=== PATIENT | male | born 1965 | race Hispanic/Latino ===

== ENCOUNTER 2020-05-24 16:54 | Inpatient (IN) | payer SELFPAY ==
[2020-05-24] MEDS ORDERED: SODIUM CHLORIDE 0.9% 1000 ML 1,000 ML IV ONE (17:35)
--- NOTE | 2020-05-24 17:37 | Emergency Department Report ---
HPI - General PUI?: Yes Time Seen by Provider: 05/24/20 17:21 - HPI HPI: Room 8 The patient is a 54-year-old male present with a chief complaint of shortness of breath. Patient states he came to the emergency department because of "Covid." The patient states for the past 2 weeks he has had shortness of breath weakness and lethargy. Patient admits to fever 100.4 F and a cough occasionally productive of sputum. Patient states he feels dehydrated. The patient states he's never had a Covid test ED Past Medical Hx - Past Medical History Previous Medical History?: No - Surgical History Additional Surgical History: Fractured mandible repair - Family History Family history: no significant - Social History Smoking Status: Never Smoker Substance Use Type: None ED Review of Systems ROS: Stated complaint: SOB/SAHLYN/POSS COVID Other details as noted in HPI Constitutional: fever, malaise Eyes: denies: eye pain ENT: denies: throat pain Respiratory: cough, shortness of breath Endocrine: no symptoms reported Gastrointestinal: denies: abdominal pain Genitourinary: denies: dysuria Musculoskeletal: denies: back pain Neurological: denies: headache Physical Exam - Physical Exam Physical Exam: GENERAL: The patient is well-developed well-nourished male lying on stretcher not appearing to be in acute distress HEENT: Normocephalic. Atraumatic. Extraocular motions are intact. Patient has moist mucous membranes. NECK: Supple. Trachea midline CHEST/LUNGS: Occasional rhonchi and crackles left base. There is no respiratory distress noted. HEART/CARDIOVASCULAR: Regular. There is no tachycardia. There is no gallop rub or murmur. ABDOMEN: Abdomen is soft, nontender. Patient has normal bowel sounds. There is no abdominal distention. SKIN: There is no rash. There is no diaphoresis. NEURO: The patient is awake, alert, and oriented. The patient is cooperative. The patient has normal speech MUSCULOSKELETAL: There is no evidence of acute injury. ED Medical Decision Making - Lab Data Result diagrams: 05/24/20 17:46 05/24/20 17:46 Laboratory Tests 05/24/20 05/24/20 12 17:46 17:46 17:46 WBC 8.7 RBC 6.03 H Hgb 18.9 H Hct 54.1 H MCV 90 MCH 31 MCHC 35 H RDW 13.2 Plt Count 154 Lymph % (Auto) 8.6 L Rogers % (Auto) 15.9 H Eos % (Auto) 0.2 Baso % (Auto) 0.4 Lymph # (Auto) 0.7 L [place] # (Auto) 1.4 H Eos # (Auto) 0.0 Baso # (Auto) 0.0 Add Manual Diff Complete Seg Neutrophils % 74.9 H Seg Neutrophils # 6.5 D-Dimer 569.00 H Sodium 131 L Potassium 4.1 Chloride 93.2 L Carbon Dioxide 23 Anion Gap 19 BUN 16 Creatinine 0.6 L Estimated GFR > 60 BUN/Creatinine Ratio 27 Glucose 273 H Calcium 8.8 Ferritin Total Bilirubin 1.40 H AST 101 H ALT 78 H Alkaline Phosphatase 82 Lactate Dehydrogenase 505 H Troponin T < 0.010 C-Reactive Protein 3.50 H NT-Pro-B Natriuret Pep Total Protein 7.8 Albumin 3.1 L Albumin/Globulin Ratio 0.7 05/24/20 05/24/20 05/24/20 17:46 17:46 18:14 WBC RBC Hgb Hct MCV MCH MCHC RDW Plt Count Lymph % (Auto) [place] % (Auto) Eos % (Auto) Baso % (Auto) Lymph # (Auto) [place] # (Auto) Eos # (Auto) Baso # (Auto) Add Manual Diff Seg Neutrophils % Seg Neutrophils # D-Dimer Sodium Potassium Chloride Carbon Dioxide Anion Gap BUN Creatinine Estimated GFR BUN/Creatinine Ratio Glucose 268 H Calcium Ferritin 3592.0 H Total Bilirubin AST ALT Alkaline Phosphatase Lactate Dehydrogenase 476 H Troponin T C-Reactive Protein 3.40 H NT-Pro-B Natriuret Pep 53.57 Total Protein Albumin Albumin/Globulin Ratio - Radiology Data Radiology results: report reviewed (Chest x-ray), image reviewed (Chest x-ray) interpreted by me: Chest a-ofa-ovexci bilateral infiltrates. No pneumothorax. No foreign body seen Chest x-ray (read by radiologist)-patchy parenchymal opacities in both mid to lower lung zones are nonspecific. Atypical causes of pneumonia, including viral pneumonia should be considered. - Differential Diagnosis Pneumonia, COVID-19, pulmonary edema, heart failure Critical care attestation.: If time is entered above; I have spent that time in minutes in the direct care of this critically ill patient, excluding procedure time. ED Disposition Clinical Impression: Bilateral pneumonia, Hypoxia, Suspected COVID-19 virus infection Disposition: DC-09 OP ADMIT IP TO THIS HOSP Is pt being admited?: Yes Does the pt Need Aspirin: Yes Condition: Fair Instructions: Bacterial Pneumonia (ED) Time of Disposition: 21:16 (Hospitalist paged)
[2020-05-24 18:10] LABS: Hematocrit 54.1 % (35.5-45.6); Hemoglobin 18.9 gm/dl (11.8-15.2); Lymphocytes % (Auto) 8.6 % (13.4-35.0); Mean Corpuscular HGB Conc 35 % (32-34); Mean Corpuscular Volume 90 fl (84-94); Platelet Count 154 K/mm3 (140-440); Red Blood Count 6.03 M/mm3 (3.65-5.03); Red Cell Distribution Width 13.2 % (13.2-15.2)
[2020-05-24 18:11] LABS: Basophils % (Auto) 0.4 % (0.0-1.8); Eosinophils % (Auto) 0.2 % (0.0-4.3); Lymphocytes # (Auto) 0.7 K/mm3 (1.2-5.4); Monocytes # (Auto) 1.4 K/mm3 (0.0-0.8); Monocytes % (Auto) 15.9 % (0.0-7.3)
--- NOTE | 2020-05-24 18:23 | XRay Report ---
CHEST 1 VIEW 6:05 PM INDICATION / CLINICAL INFORMATION: Shortness of breath and cough. COMPARISON: None available. FINDINGS: SUPPORT DEVICES: None. HEART / MEDIASTINUM: The heart size and pulmonary vasculature are normal. LUNGS / PLEURA: There are [id number] patchy parenchymal opacities in both mid to lower lung zon es. No significant pleural effusion. No pneumothorax. ADDITIONAL FINDINGS: No significant additional findings. IMPRESSION: Patchy parenchymal opacities in both mid to lower lung zones are nonspecific. Atypical ca uses of pneumonia, including viral pneumonia, should be considered. Signer Name: Alejandro Edwards MD Signed: 05/24/2020 6:19 PM Workstation Name: [id number]
[2020-05-24 18:26] LABS: C-Reactive Protein 3.4 mg/dL (0.00-1.30)
[2020-05-24] MEDS ORDERED: cefTRIAXone/NS 1 GM/50 ML 1 GM/50 ML BAG IV ONE ×2 (18:38→22:00)
[2020-05-24] MEDS ORDERED: dexAMETHasone 20 MG/5 ML VIAL IV ONE ×2 (18:38→22:30)
[2020-05-24] MEDS ORDERED: AZITHROMYCIN 500 MG in SODIUM CHLORIDE 0.9% 250ML 250 ML IV ONE (18:38)
[2020-05-24 20:19] LABS: Alanine Aminotransferase 78 units/L (7-56); Albumin 3.1 g/dL (3.9-5); Blood Urea Nitrogen 16 mg/dL (9-20); Calcium 8.8 mg/dL (8.4-10.2); Hemolysis Index 14
[2020-05-24 20:23] LABS: BUN/Creatinine Ratio 27
[2020-05-24] MEDS ORDERED: MINERAL OIL/PETROLATUM, WHITE OPHTH OINT 3.5 GM OU PRN (20:35)
[2020-05-24] MEDS ORDERED: MIDAZOLAM 2 MG/2 ML INJ IV PRN (20:35)
[2020-05-24] MEDS ORDERED: LIP THERAPY VASELINE TP PRN (20:35)
[2020-05-24] MEDS ORDERED: MIDAZOLAM 100 MG in SODIUM CHLORIDE 0.9% 80 ML IV SCH (21:00)
[2020-05-24] MEDS ORDERED: ONDANSETRON 4 MG/2 ML INJ IV PRN (21:35)
[2020-05-24] MEDS ORDERED: MAGNESIUM HYDROXIDE (MOM) ORAL LIQD UDC PO PRN (21:35)
[2020-05-24] MEDS ORDERED: ALBUTEROL 2.5 MG/3 ML NEBU IH PRN (21:35)
[2020-05-24] MEDS ORDERED: ALUM-MAG HYDROXIDE-SIMETHICONE 200-200-20MG/5ML ORAL LIQD 30 ML PO PRN (21:35)
[2020-05-24] MEDS ORDERED: ALPRAZolam 0.25 MG TAB PO PRN (21:35)
[2020-05-24] MEDS ORDERED: DOCUSATE SODIUM 100 MG CAP PO PRN (21:35)
[2020-05-24] MEDS ORDERED: METOCLOPRAMIDE 10 MG/2 ML INJ IV PRN (21:35)
--- NOTE | 2020-05-24 21:47 | History and Physical Report ---
History of Present Illness Date of examination: 05/24/20 Date of admission: 05/24/20 21:29 Chief complaint: shortness of breath History of present illness: The patient is a 54-year-old male present with a chief complaint of shortness of breath. Patient states he came to the emergency department because of "Covid." The patient states for the past 2 weeks he has had shortness of breath weakness and lethargy. Patient admits to fever 100.4 F and a cough occasionally productive of sputum. Patient states he feels dehydrated. The patient states he's never had a Covid test Ed Work up shows WBC 8.7, hemoglobin 18.9, d-dimer 569, sodium 131, potasium 4.1, Cr .06, serum glucose 268, and ferritin 3592 Chest x-ray-shows bilateral Pneumonia Patient seen at bedside, on oxygen per N/c. He admits alcohol use but quit 2 years ago. Reviewed lab, mar, and v/s Past History Past Medical History: other (denies Past medical hx) Social history: lives with family (Lives with parent), alcohol abuse (quit alcohol use 2 years ago) Family history: diabetes, hypertension Medications and Allergies Allergies Allergy/AdvReac Type Severity Reaction Status Date / Time Penicillins Allergy Unknown Verified 05/24/20 20:57 Active Meds: Active Medications Dexamethasone (Dexamethasone 20 Mg/5 Ml Vial) 10 mg IV ONCE ONE Stop: 05/24/20 22:31 Hydrophilic Ointment (Lip Therapy Vaseline) 1 applic TP Q2HR PRN PRN Reason: Dry Lips Midazolam HCl 100 mg/ Sodium (Chloride) 100 mls @ 2 mls/hr IV TITR JEFF; Protocol Ceftriaxone Sodium (Rocephin/Ns 1 Gm/50 Ml) 1 gm in 50 mls @ 100 mls/hr IV ONCE ONE; Protocol Stop: 05/24/20 22:29 Midazolam HCl (Midazolam 2 Mg/2 Ml Inj) 2 mg IV Q10MIN PRN PRN Reason: Sedation Multi-Ingred Cream/Lotion/Oil/Oint (Mineral Oil/Petrolatum, White Ophth Oint 3.5 Gm) 1 applic OU Q4HR PRN PRN Reason: Dry Eye(s) Review of Systems Constitutional: fatigue, weakness, malaise Ears, nose, mouth and throat: no ear discharge, no epistaxis Cardiovascular: no edema Respiratory: cough, shortness of breath, dyspnea on exertion, respiratory infections Gastrointestinal: no melena Genitourinary Male: no hematuria Rectal: no incontinence Musculoskeletal: muscle weakness Integumentary: no sores, no wounds Neurological: no head injury Psychiatric: anxiety Hematologic/Lymphatic: no easy bruising Exam - Constitutional Vitals: Temp Pulse Resp BP Pulse Ox 98.1 F 88 21 147/76 86 05/24/20 19:38 05/24/20 19:38 05/24/20 19:38 05/24/20 19:38 05/24/20 19:38 General appearance: Present: mild distress - EENT Eyes: Present: PERRL ENT: hearing intact, clear oral mucosa - Neck Neck: Present: supple, normal ROM - Respiratory Respiratory effort: other (shortness of breath) Respiratory: bilateral: CTA - Cardiovascular Heart rate: 88 Heart Sounds: Present: S1 & S2. Absent: rub, click - Extremities Extremities: pulses symmetrical, No edema Peripheral Pulses: within normal limits - Abdominal General gastrointestinal: Present: soft, non-tender, non-distended, normal bowel sounds Male genitourinary: Present: normal - Integumentary Integumentary: Present: clear, warm, dry - Musculoskeletal Musculoskeletal: gait normal, strength equal bilaterally - Psychiatric Psychiatric: appropriate mood/affect, intact judgment & insight - Neurologic Neurologic: CNII-XII intact, moves all extremities HEART Score - HEART Score Troponin: Troponin T < 0.010 ng/mL (0.00-0.029) 05/24/20 17:46 Results - Labs CBC & Chem 7: 05/24/20 17:46 05/25/20 02:55 Labs: Abnormal lab results 05/24/20 05/24/20 05/24/20 Range/Units 17:46 17:46 17:46 RBC 6.03 H (3.65-5.03) M/mm3 Hgb 18.9 H (11.8-15.2) gm/dl Hct 54.1 H (35.5-45.6) % MCHC 35 H (32-34) % Lymph % (Auto) 8.6 L (13.4-35.0) % [place] % (Auto) 15.9 H (0.0-7.3) % Lymph # (Auto) 0.7 L (1.2-5.4) K/mm3 [place] # (Auto) 1.4 H (0.0-0.8) K/mm3 Seg Neutrophils % 74.9 H (40.0-70.0) % D-Dimer 569.00 H (0-234) ng/mlDDU Sodium 131 L (137-145) mmol/L Chloride 93.2 L (98-107) mmol/L Creatinine 0.6 L (0.8-1.3) mg/dL Glucose 273 H (75-100) mg/dL Ferritin (30.0-300.0) ng/mL Total Bilirubin 1.40 H (0.1-1.2) mg/dL AST 101 H (5-40) units/L ALT 78 H (7-56) units/L Lactate Dehydrogenase 505 H (91-180) units/L C-Reactive Protein 3.50 H (0.00-1.30) mg/dL Albumin 3.1 L (3.9-5) g/dL 05/24/20 05/24/20 Range/Units 17:46 17:46 RBC (3.65-5.03) M/mm3 Hgb (11.8-15.2) gm/dl Hct (35.5-45.6) % MCHC (32-34) % Lymph % (Auto) (13.4-35.0) % [place] % (Auto) (0.0-7.3) % Lymph # (Auto) (1.2-5.4) K/mm3 [place] # (Auto) (0.0-0.8) K/mm3 Seg Neutrophils % (40.0-70.0) % D-Dimer (0-234) ng/mlDDU Sodium (137-145) mmol/L Chloride (98-107) mmol/L Creatinine (0.8-1.3) mg/dL Glucose 268 H (75-100) mg/dL Ferritin 3592.0 H (30.0-300.0) ng/mL Total Bilirubin (0.1-1.2) mg/dL AST (5-40) units/L ALT (7-56) units/L Lactate Dehydrogenase 476 H (91-180) units/L C-Reactive Protein 3.40 H (0.00-1.30) mg/dL Albumin (3.9-5) g/dL Assessment and Plan - Patient Problems (1) Bilateral pneumonia Current Visit: Yes Status: Acute Plan to address problem: Most likely 2/2 to covid infection Covid test ordered-will f/u with result Started on empiric antibiotic Blood culture ID consult (2) Suspected COVID-19 virus infection Current Visit: Yes Status: Acute Plan to address problem: Elevated inflammatory makers-trend Airborne and contact isolation-pending covid test result ID consult-Ascorbic acid and zinc sulphate (3) Acute respiratory failure with hypoxia Current Visit: Yes Status: Acute Plan to address problem: Likely 2/2 to covid infection/bacterial PNA PRN bronchodilators and oxygen supplement ABGs Encourage prone position and use of incentive spirometer while awake (4) DVT prophylaxis Current Visit: Yes Status: Acute Plan to address problem: Lovenox (5) Advance care planning Current Visit: Yes Status: Acute Plan to address problem: Full code status
[2020-05-24] MEDS: FAMOTIDINE 20 MG TAB PO SCH (22:37)
[2020-05-24] MEDS: ENOXAPARIN 40 MG/0.4 ML INJ SUB-Q SCH (22:37)
[2020-05-25 04:18] LABS: C-Reactive Protein 3.2 mg/dL (0.00-1.30)
[2020-05-25] MEDS: ASCORBIC ACID 500 MG TAB PO SCH ×3 (05:46→23:45)
[2020-05-25 06:02] LABS: Bacteria,Urine 1+ /HPF (Negative); Bilirubin,Urine NEG (Negative); Blood,Urine NEG (Negative); Color,Urine Amber (Yellow); Mucus,Urine 1+ /HPF
--- NOTE | 2020-05-25 07:11 | XRay Report ---
CHEST 1 VIEW 0618 INDICATION / CLINICAL INFORMATION: follow up respiratory failure COMPARISON: 05/24/2020 FINDINGS: SUPPORT DEVICES: None HEART / MEDIASTINUM: Stable LUNGS / PLEURA: Patchy bilateral pulmonary infiltrates and atelectatic changes, most prominent in the lung bases, continue with slight worsening in the right. No pneumothorax. ADDITIONAL FINDINGS: No significant additional findings. Signer Name: Jean-Pierre Hernandez MD Signed: 05/25/2020 7:07 AM Workstation Name: [email or web address] [id number]
[2020-05-25] MEDS ORDERED: DEXTROSE 50% IN WATER (25GM) 50 ML SYRINGE IV PRN (07:13)
--- NOTE | 2020-05-25 07:29 | Progress Note ---
Assessment and Plan Assessment and plan: The patient is a 54-year-old male present with a chief complaint of shortness of breath. Patient states he came to the emergency department because of "Covid." The patient states for the past 2 weeks he has had shortness of breath weakness and lethargy. Patient admits to fever 100.4 F and a cough occasionally productive of sputum. Patient states he feels dehydrated. The patient states he's never had a Covid test Ed Work up shows WBC 8.7, hemoglobin 18.9, d-dimer 569, sodium 131, potasium 4.1, Cr .06, serum glucose 268, and ferritin 3592 Chest x-ray-shows bilateral Pneumonia Patient seen at bedside, on oxygen per N/c. He admits alcohol use but quit 2 years ago. Reviewed lab, mar, and v/s 05/24: Add insulin for BG control, consult Pulmonary considering Hypoxia. Continue current management and check hgb A1C. (1) Bilateral pneumonia Current Visit: Yes Status: Acute Plan to address problem: Most likely 2/2 to covid infection Covid test ordered-will f/u with result Started on empiric antibiotic Blood culture ID consult (2) Suspected COVID-19 virus infection Current Visit: Yes Status: Acute Plan to address problem: Elevated inflammatory makers-trend Airborne and contact isolation-pending covid test result ID consult-Ascorbic acid and zinc sulphate (3) Acute respiratory failure with hypoxia Current Visit: Yes Status: Acute Plan to address problem: Likely 2/2 to covid infection/bacterial PNA PRN bronchodilators and oxygen supplement ABGs Encourage prone position and use of incentive spirometer while awake (4) Hyperglycemia ?steroid induced vs DM Insulin added Check A1C (5) DVT prophylaxis Current Visit: Yes Status: Acute Plan to address problem: Lovenox (6) Advance care planning Current Visit: Yes Status: Acute Plan to address problem: Full code status History Interval history: Patient seen and examined, short of breath still persist. No new complaints. He states he has been sick for 12 days including today and believes he got it from [facility]. Hospitalist Physical - Physical exam Narrative exam: General appearance: Present: mild distress, on nasal cannula - EENT Eyes: Present: PERRL ENT: hearing intact, clear oral mucosa - Neck Neck: Present: supple, normal ROM - Respiratory Respiratory effort: other (shortness of breath) Respiratory: bilateral: CTA - Cardiovascular Heart rate: 88 Heart Sounds: Present: S1 & S2. Absent: rub, click - Extremities Extremities: pulses symmetrical, No edema Peripheral Pulses: within normal limits - Abdominal General gastrointestinal: Present: soft, non-tender, non-distended, normal bowel sounds Male genitourinary: Present: normal - Integumentary Integumentary: Present: clear, warm, dry - Musculoskeletal Musculoskeletal: gait normal, strength equal bilaterally - Psychiatric Psychiatric: appropriate mood/affect, intact judgment & insight - Neurologic Neurologic: CNII-XII intact, moves all extremities - Constitutional Vitals: Temp Pulse Resp BP Pulse Ox 98.1 F 76 26 H 158/102 92 05/24/20 19:38 05/25/20 07:15 05/25/20 07:15 05/25/20 07:15 05/25/20 07:15 General appearance: Present: mild distress HEART Score - HEART Score Troponin: Troponin T < 0.010 ng/mL (0.00-0.029) 05/24/20 17:46 Results - Labs CBC & Chem 7: 05/24/20 17:46 05/25/20 02:55 Labs: Laboratory Last Values WBC 8.7 K/mm3 (4.5-11.0) 05/24/20 17:46 RBC 6.03 M/mm3 (3.65-5.03) H 05/24/20 17:46 Hgb 18.9 gm/dl (11.8-15.2) H 05/24/20 17:46 Hct 54.1 % (35.5-45.6) H 05/24/20 17:46 MCV 90 fl (84-94) 05/24/20 17:46 MCH 31 pg (28-32) 05/24/20 17:46 MCHC 35 % (32-34) H 05/24/20 17:46 RDW 13.2 % (13.2-15.2) 05/24/20 17:46 Plt Count 154 K/mm3 (140-440) 05/24/20 17:46 Lymph % (Auto) 8.6 % (13.4-35.0) L 05/24/20 17:46 [place] % (Auto) 15.9 % (0.0-7.3) H 05/24/20 17:46 Eos % (Auto) 0.2 % (0.0-4.3) 05/24/20 17:46 Baso % (Auto) 0.4 % (0.0-1.8) 05/24/20 17:46 Lymph # (Auto) 0.7 K/mm3 (1.2-5.4) L 05/24/20 17:46 [place] # (Auto) 1.4 K/mm3 (0.0-0.8) H 05/24/20 17:46 Eos # (Auto) 0.0 K/mm3 (0.0-0.4) 05/24/20 17:46 Baso # (Auto) 0.0 K/mm3 (0.0-0.1) 05/24/20 17:46 Add Manual Diff Complete 05/24/20 17:46 Seg Neutrophils % 74.9 % (40.0-70.0) H 05/24/20 17:46 Seg Neutrophils # 6.5 K/mm3 (1.8-7.7) 05/24/20 17:46 D-Dimer 418.22 ng/mlDDU (0-234) H 05/25/20 02:55 Sodium 131 mmol/L (137-145) L 05/24/20 17:46 Potassium 4.1 mmol/L (3.6-5.0) 05/24/20 17:46 Chloride 93.2 mmol/L (98-107) L 05/24/20 17:46 Carbon Dioxide 23 mmol/L (22-30) 05/24/20 17:46 Anion Gap 19 mmol/L 05/24/20 17:46 BUN 16 mg/dL (9-20) 05/24/20 17:46 Creatinine 0.6 mg/dL (0.8-1.3) L 05/24/20 17:46 Estimated GFR > 60 ml/min 05/24/20 17:46 BUN/Creatinine Ratio 27 % 05/24/20 17:46 Glucose 290 mg/dL (75-100) H 05/25/20 02:55 Lactic Acid 1.50 mmol/L (0.7-2.0) 05/25/20 02:55 Calcium 8.8 mg/dL (8.4-10.2) 05/24/20 17:46 Ferritin 2913.0 ng/mL (30.0-300.0) H 05/25/20 02:55 Total Bilirubin 1.40 mg/dL (0.1-1.2) H 05/24/20 17:46 AST 101 units/L (5-40) H 05/24/20 17:46 ALT 78 units/L (7-56) H 05/24/20 17:46 Alkaline Phosphatase 82 units/L (35-129) 05/24/20 17:46 Lactate Dehydrogenase 396 units/L (91-180) H 05/25/20 02:55 Troponin T < 0.010 ng/mL (0.00-0.029) 05/24/20 17:46 C-Reactive Protein 3.20 mg/dL (0.00-1.30) H 05/25/20 02:55 NT-Pro-B Natriuret Pep 53.57 pg/mL (0-900) 05/24/20 18:14 Total Protein 7.8 g/dL (6.3-8.2) 05/24/20 17:46 Albumin 3.1 g/dL (3.9-5) L 05/24/20 17:46 Albumin/Globulin Ratio 0.7 % 05/24/20 17:46 Urine Color Ana (Yellow) 05/25/20 05:41 Urine Turbidity Clear (Clear) 05/25/20 05:41 Urine pH 6.0 (5.0-7.0) 05/25/20 05:41 Ur Specific [place] 1.032 (1.003-1.030) H 05/25/20 05:41 Urine Protein 100 mg/dl mg/dL (Negative) 05/25/20 05:41 Urine Glucose (UA) >=500 mg/dL (Negative) 05/25/20 05:41 Urine Ketones 20 mg/dL (Negative) 05/25/20 05:41 Urine Blood Neg (Negative) 05/25/20 05:41 Urine Nitrite Neg (Negative) 05/25/20 05:41 Urine Bilirubin Neg (Negative) 05/25/20 05:41 Urine Urobilinogen 4.0 mg/dL (<2.0) 05/25/20 05:41 Ur Leukocyte Esterase Neg (Negative) 05/25/20 05:41 Urine WBC (Auto) 7.0 /HPF (0.0-6.0) H 05/25/20 05:41 Urine RBC (Auto) 1.0 /HPF (0.0-6.0) 05/25/20 05:41 Urine Bacteria (Auto) 1+ /HPF (Negative) 05/25/20 05:41 Urine Mucus 1+ /HPF 05/25/20 05:41 Microbiology: Microbiology 05/24/20 17:46 Peripheral/Venous Blood Culture - Preliminary Culture in Progress 05/24/20 17:46 Peripheral/Venous Blood Culture - Preliminary Culture in Progress Barber/IV: IV Catheter Type [Left Peripheral IV Antecubital] Active Medications - Current Medications Current Medications: Generic Name Dose Route Start Last Admin Trade Name Freq PRN Reason Stop Dose Admin Acetaminophen 650 mg 05/24/20 21:35 Acetaminophen 325 Mg Tab PO Q4H PRN Pain MILD(1-3)/Fever >100.5/LEAL Al Hydrox/Mg Hydrox/Simethicone 30 ml 05/24/20 21:35 Alum-Mag Hydroxide-Simethicone 391-179-37mh/5ml Oral Liqd 30 Ml PO Q4H PRN Indigestion Albuterol 2.5 mg 05/24/20 21:35 Albuterol 2.5 Mg/3 Ml Nebu IH Q4HRT PRN Shortness Of Breath Alprazolam 0.125 mg 05/24/20 21:35 Alprazolam 0.25 Mg Tab PO Q8H PRN Anxiety Ascorbic Acid 500 mg 05/24/20 22:00 05/25/20 05:46 Ascorbic Acid 500 Mg Tab PO Not Given BID JEFF Dexamethasone 6 mg 05/25/20 10:00 Dexamethasone 4 Mg/Ml Vial IV DAILY JEFF Dextrose 50 ml 05/25/20 07:13 Dextrose 50% In Water (25gm) 50 Ml Syringe IV Q30MIN PRN Hypoglycemia Protocol Docusate Sodium 100 mg 05/24/20 21:35 Docusate Sodium 100 Mg Cap PO BID PRN Constipation Enoxaparin Sodium 40 mg 05/24/20 22:00 05/24/20 22:37 Enoxaparin 40 Mg/0.4 Ml Inj SUB-Q 40 mg DAILY JEFF Administration Protocol Famotidine 20 mg 05/24/20 22:00 05/24/20 22:37 Famotidine 20 Mg Tab PO 20 mg BID JEFF Administration Hydrophilic Ointment 1 applic 05/24/20 20:35 Lip Therapy Vaseline TP Q2HR PRN Dry Lips Ceftriaxone Sodium 2 gm in 100 mls @ 200 mls/hr 05/25/20 22:00 Rocephin/Ns 2 Gm/100 Ml IV Q24H [facility] Protocol Azithromycin 500 mg/ Sodium 250 mls @ 250 mls/hr 05/25/20 22:00 Chloride IV Q24H [facility] Protocol Insulin Glargine 12 units 05/25/20 22:00 Insulin Glargine 100 Units/Ml SUB-Q QHS [facility] Insulin Human Lispro 0 unit 05/25/20 07:30 Insulin Lispro 100 Unit/Ml Vial 3 Ml SUB-Q ACHS [facility] Protocol Magnesium Hydroxide 30 ml 05/24/20 21:35 Magnesium Hydroxide (Mom) Oral Liqd Udc PO Q4H PRN Constipation Metoclopramide HCl 10 mg 05/24/20 21:35 Metoclopramide 10 Mg/2 Ml Inj IV Q6H PRN Nausea And Vomiting Multi-Ingred Cream/Lotion/Oil/Oint 1 applic 05/24/20 20:35 Mineral Oil/Petrolatum, White Ophth Oint 3.5 Gm OU Q4HR PRN Dry Eye(s) Ondansetron HCl 4 mg 05/24/20 21:35 Ondansetron 4 Mg/2 Ml Inj IV Q8H PRN Nausea And Vomiting Sodium Chloride 10 ml 05/24/20 22:00 05/24/20 22:38 Sodium Chloride 0.9% 10 Ml Flush Syringe IV 10 ml BID JEFF Administration Sodium Chloride 10 ml 05/24/20 21:35 Sodium Chloride 0.9% 10 Ml Flush Syringe IV PRN PRN LINE FLUSH Zinc Sulfate 220 mg 05/25/20 10:00 Zinc Sulfate 220 Mg Cap PO QDAY [facility] Zolpidem Tartrate 5 mg 05/24/20 21:35 Zolpidem 5 Mg Tab PO QHS PRN Insomnia
[2020-05-25] MEDS ORDERED: dexAMETHasone 4 MG/ML VIAL IV SCH (10:00)
[2020-05-25] MEDS: INSULIN LISPRO 100 UNIT/ML VIAL 3 mL SUB-Q SCH ×4 (10:37→23:46)
[2020-05-25] MEDS: ZINC SULFATE 220 MG CAP PO SCH (11:10)
[2020-05-25] MEDS: FAMOTIDINE 20 MG TAB PO SCH ×2 (11:11→23:45)
[2020-05-25] MEDS: ENOXAPARIN 40 MG/0.4 ML INJ SUB-Q SCH (11:12)
[2020-05-25 12:13] LABS: Basophils % (Auto) 0.2 % (0.0-1.8); Hematocrit 47.8 % (35.5-45.6); Hemoglobin 16.8 gm/dl (11.8-15.2); Lymphocytes # (Auto) 0.5 K/mm3 (1.2-5.4); Lymphocytes % (Auto) 10.9 % (13.4-35.0); Mean Corpuscular HGB Conc 35 % (32-34); Mean Corpuscular Volume 91 fl (84-94); Monocytes # (Auto) 0.6 K/mm3 (0.0-0.8); Monocytes % (Auto) 13.6 % (0.0-7.3); Platelet Count 152 K/mm3 (140-440); Red Blood Count 5.28 M/mm3 (3.65-5.03); Red Cell Distribution Width 13.4 % (13.2-15.2)
[2020-05-25 12:25] LABS: Blood Urea Nitrogen 18 mg/dL (9-20); Calcium 8.6 mg/dL (8.4-10.2); Hemolysis Index 29
[2020-05-25 12:29] LABS: BUN/Creatinine Ratio 36
[2020-05-25] MEDS: cefTRIAXone/NS 2 GM/100 ML 2 GM/100 ML BAG IV SCH (21:37)
[2020-05-25] MEDS: AZITHROMYCIN 500 MG in SODIUM CHLORIDE 0.9% 250ML 250 ML IV SCH (22:09)
--- NOTE | 2020-05-25 22:36 | Consultation ---
History of Present Illness Consult date: 05/25/20 Requesting physician: FADI HAINES Reason for consult: dyspnea History of present illness: The patient is a 54-year-old male present with a chief complaint of shortness of breath. Patient states he came to the emergency department because of "Covid." The patient states for the past 2 weeks he has had shortness of breath, weakness, and lethargy. Patient admits to fever 100.4 F though not for the past several days and a cough occasionally productive of sputum. Denies medical problems. Denies smoking, Denies HIV risk factors. Past History Past Medical History: other (denies Past medical hx) Social history: lives with family (Lives with parent), alcohol abuse (quit alcohol use 2 years ago), full code. denies: prescription drug abuse, IV drug u se Family history: diabetes, hypertension Medications and Allergies Allergies Allergy/AdvReac Type Severity Reaction Status Date / Time Penicillins Allergy Unknown Verified 05/24/20 20:57 Active Meds: Active Medications Acetaminophen (Acetaminophen 325 Mg Tab) 650 mg PO Q4H PRN PRN Reason: Pain MILD(1-3)/Fever >100.5/LEAL Al Hydrox/Mg Hydrox/Simethicone (Alum-Mag Hydroxide-Simethicone [phone]/5ml Oral Liqd 30 Ml) 30 ml PO Q4H PRN PRN Reason: Indigestion Albuterol (Albuterol 2.5 Mg/3 Ml Nebu) 2.5 mg IH Q4HRT PRN PRN Reason: Shortness Of Breath Alprazolam (Alprazolam 0.25 Mg Tab) 0.125 mg PO Q8H PRN PRN Reason: Anxiety Ascorbic Acid (Ascorbic Acid 500 Mg Tab) 500 mg PO BID [facility] Last Admin: 05/25/20 11:12 Dose: 500 mg Documented by: Dexamethasone (Dexamethasone 4 Mg/Ml Vial) 6 mg IV DAILY [facility] Last Admin: 05/25/20 10:36 Dose: 6 mg Documented by: Dextrose (Dextrose 50% In Water (25gm) 50 Ml Syringe) 50 ml IV Q30MIN PRN; Protocol PRN Reason: Hypoglycemia Docusate Sodium (Docusate Sodium 100 Mg Cap) 100 mg PO BID PRN PRN Reason: Constipation Enoxaparin Sodium (Enoxaparin 40 Mg/0.4 Ml Inj) 40 mg SUB-Q DAILY [facility]; Protocol Last Admin: 05/25/20 11:12 Dose: 40 mg Documented by: Famotidine (Famotidine 20 Mg Tab) 20 mg PO BID [facility] Last Admin: 05/25/20 11:11 Dose: 20 mg Documented by: Hydrophilic Ointment (Lip Therapy Vaseline) 1 applic TP Q2HR PRN PRN Reason: Dry Lips Ceftriaxone Sodium (Rocephin/Ns 2 Gm/100 Ml) 2 gm in 100 mls @ 200 mls/hr IV Q24H [facility]; Protocol Last Admin: 05/25/20 21:37 Dose: 200 mls/hr Documented by: Azithromycin 500 mg/ Sodium (Chloride) 250 mls @ 250 mls/hr IV Q24H [facility]; Protocol Last Admin: 05/25/20 22:09 Dose: 250 mls/hr Documented by: Insulin Glargine (Insulin Glargine 100 Units/Ml) 12 units SUB-Q QHS JEFF Insulin Human Lispro (Insulin Lispro 100 Unit/Ml Vial 3 Ml) 0 unit SUB-Q ACHS [facility]; Protocol Last Admin: 05/25/20 18:33 Dose: 10 unit Documented by: Magnesium Hydroxide (Magnesium Hydroxide (Mom) Oral Liqd Udc) 30 ml PO Q4H PRN PRN Reason: Constipation Metoclopramide HCl (Metoclopramide 10 Mg/2 Ml Inj) 10 mg IV Q6H PRN PRN Reason: Nausea And Vomiting Multi-Ingred Cream/Lotion/Oil/Oint (Mineral Oil/Petrolatum, White Ophth Oint 3.5 Gm) 1 applic OU Q4HR PRN PRN Reason: Dry Eye(s) Ondansetron HCl (Ondansetron 4 Mg/2 Ml Inj) 4 mg IV Q8H PRN PRN Reason: Nausea And Vomiting Sodium Chloride (Sodium Chloride 0.9% 10 Ml Flush Syringe) 10 ml IV BID [facility] Last Admin: 05/25/20 10:20 Dose: 10 ml Documented by: Sodium Chloride (Sodium Chloride 0.9% 10 Ml Flush Syringe) 10 ml IV PRN PRN PRN Reason: LINE FLUSH Zinc Sulfate (Zinc Sulfate 220 Mg Cap) 220 mg PO QDAY [facility] Last Admin: 05/25/20 11:10 Dose: 220 mg Documented by: Zolpidem Tartrate (Zolpidem 5 Mg Tab) 5 mg PO QHS PRN PRN Reason: Insomnia Review of Systems All systems: negative Physical Examination Vital signs: Vital Signs Temp Pulse Resp BP Pulse Ox 98.5 F 80 25 H 146/84 81 L 05/24/20 17:44 05/24/20 17:44 05/24/20 17:44 05/24/20 17:44 05/24/20 17:44 Vital Signs - 24 hr 05/24/20 05/24/20 05/24/20 22:45 23:00 23:15 Temperature Pulse Rate 87 84 85 Respiratory 15 21 24 Rate Blood Pressure 141/81 136/82 140/82 O2 Sat by Pulse 92 94 96 Oximetry 05/24/20 05/24/20 05/24/20 23:27 23:30 23:45 Temperature Pulse Rate 84 Respiratory 19 Rate Blood Pressure 140/82 146/84 127/76 O2 Sat by Pulse 95 96 95 Oximetry 05/25/20 05/25/20 05/25/20 00:00 00:15 00:30 Temperature Pulse Rate 83 81 81 Respiratory 26 H 26 H 16 Rate Blood Pressure 135/78 129/78 129/79 O2 Sat by Pulse 96 97 Oximetry 05/25/20 05/25/20 05/25/20 00:45 01:00 01:15 Temperature Pulse Rate 79 77 75 Respiratory 28 H 26 H 34 H Rate Blood Pressure 126/78 123/75 118/71 O2 Sat by Pulse 93 92 90 Oximetry 05/25/20 05/25/20 05/25/20 01:30 01:45 02:00 Temperature Pulse Rate 78 80 79 Respiratory 17 26 H 22 Rate Blood Pressure 118/77 118/71 123/78 O2 Sat by Pulse 92 92 95 Oximetry 05/25/20 05/25/20 05/25/20 02:15 02:30 02:45 Temperature Pulse Rate 80 80 77 Respiratory 20 26 H 29 H Rate Blood Pressure 134/88 143/80 125/83 O2 Sat by Pulse 92 92 Oximetry 05/25/20 05/25/20 05/25/20 03:00 03:15 03:30 Temperature Pulse Rate 78 86 83 Respiratory 25 H 20 25 H Rate Blood Pressure 129/77 129/77 138/76 O2 Sat by Pulse 92 91 96 Oximetry 05/25/20 05/25/20 05/25/20 03:45 04:00 04:15 Temperature Pulse Rate 85 84 Respiratory 21 29 H Rate Blood Pressure 132/76 147/77 134/73 O2 Sat by Pulse 92 91 Oximetry 05/25/20 05/25/20 05/25/20 04:30 04:45 05:15 Temperature Pulse Rate 80 75 74 Respiratory 26 H 27 H 30 H Rate Blood Pressure 127/73 135/74 126/71 O2 Sat by Pulse 95 92 92 Oximetry 05/25/20 05/25/20 05/25/20 05:30 05:45 06:00 Temperature Pulse Rate 74 73 73 Respiratory 29 H 27 H 28 H Rate Blood Pressure 119/68 120/70 118/68 O2 Sat by Pulse 90 91 88 Oximetry 05/25/20 05/25/20 05/25/20 06:15 06:31 06:45 Temperature Pulse Rate 73 73 73 Respiratory 27 H 24 24 Rate Blood Pressure 118/71 118/71 145/85 O2 Sat by Pulse 91 90 Oximetry 05/25/20 05/25/20 05/25/20 07:00 07:15 07:30 Temperature Pulse Rate 71 76 76 Respiratory 28 H 26 H 24 Rate Blood Pressure 137/86 158/102 O2 Sat by Pulse 91 92 92 Oximetry 05/25/20 05/25/20 05/25/20 07:45 08:01 08:15 Temperature Pulse Rate 71 79 78 Respiratory 28 H 25 H 26 H Rate Blood Pressure 148/86 148/86 176/91 O2 Sat by Pulse 91 88 91 Oximetry 05/25/20 05/25/20 05/25/20 08:24 08:30 08:45 Temperature Pulse Rate 84 77 Respiratory 26 H 25 H Rate Blood Pressure 156/97 156/97 O2 Sat by Pulse 91 82 L 92 Oximetry 05/25/20 05/25/20 05/25/20 09:00 09:15 09:30 Temperature Pulse Rate 76 74 71 Respiratory 24 26 H 30 H Rate Blood Pressure 130/80 137/79 122/74 O2 Sat by Pulse 93 90 91 Oximetry 05/25/20 05/25/20 05/25/20 09:45 10:00 10:09 Temperature 97.9 F Pulse Rate 76 72 Respiratory 26 H 28 H Rate Blood Pressure 122/74 130/78 O2 Sat by Pulse 89 98 Oximetry 05/25/20 05/25/20 05/25/20 11:21 11:30 11:41 Temperature Pulse Rate Respiratory Rate Blood Pressure 138/90 131/71 131/71 O2 Sat by Pulse 91 90 92 Oximetry 05/25/20 05/25/20 05/25/20 11:51 12:00 12:11 Temperature Pulse Rate Respiratory Rate Blood Pressure 126/73 121/73 121/73 O2 Sat by Pulse 91 88 88 Oximetry 05/25/20 05/25/20 05/25/20 12:21 12:30 12:41 Temperature Pulse Rate Respiratory Rate Blood Pressure 123/78 124/71 124/71 O2 Sat by Pulse 88 89 88 Oximetry 05/25/20 05/25/20 05/25/20 12:51 13:00 13:11 Temperature Pulse Rate Respiratory Rate Blood Pressure 120/80 130/79 130/79 O2 Sat by Pulse 85 83 L 89 Oximetry 05/25/20 05/25/20 05/25/20 13:21 13:30 13:41 Temperature Pulse Rate Respiratory Rate Blood Pressure 133/80 139/75 139/75 O2 Sat by Pulse 92 92 92 Oximetry 05/25/20 05/25/20 05/25/20 13:51 14:00 14:11 Temperature Pulse Rate Respiratory Rate Blood Pressure 134/76 147/87 147/87 O2 Sat by Pulse 92 89 89 Oximetry 05/25/20 05/25/20 05/25/20 14:21 14:30 14:41 Temperature Pulse Rate 90 82 88 Respiratory 17 29 H 24 Rate Blood Pressure 140/84 143/82 143/82 O2 Sat by Pulse 87 89 84 Oximetry 05/25/20 05/25/20 05/25/20 14:51 15:00 15:11 Temperature Pulse Rate 86 89 87 Respiratory 19 19 31 H Rate Blood Pressure 128/83 136/66 136/66 O2 Sat by Pulse 87 88 85 Oximetry 05/25/20 05/25/20 05/25/20 15:21 15:31 15:41 Temperature Pulse Rate 86 83 80 Respiratory 24 24 20 Rate Blood Pressure 134/69 129/68 129/68 O2 Sat by Pulse 90 88 88 Oximetry 05/25/20 05/25/20 05/25/20 15:51 16:01 16:11 Temperature Pulse Rate 83 91 H 85 Respiratory 21 19 21 Rate Blood Pressure 126/67 126/67 126/67 O2 Sat by Pulse 91 90 90 Oximetry 05/25/20 05/25/20 05/25/20 16:21 16:30 16:41 Temperature Pulse Rate 87 87 84 Respiratory 27 H 26 H 26 H Rate Blood Pressure 129/81 131/75 131/75 O2 Sat by Pulse 90 92 90 Oximetry 05/25/20 05/25/20 05/25/20 16:51 17:00 17:11 Temperature Pulse Rate 83 84 85 Respiratory 28 H 24 21 Rate Blood Pressure 141/81 139/83 139/83 O2 Sat by Pulse 93 92 89 Oximetry 05/25/20 05/25/20 05/25/20 17:21 17:30 17:41 Temperature Pulse Rate 84 84 86 Respiratory 26 H 24 22 Rate Blood Pressure 121/65 126/68 126/68 O2 Sat by Pulse 91 91 89 Oximetry 05/25/20 05/25/20 05/25/20 17:51 18:00 18:11 Temperature Pulse Rate 85 83 82 Respiratory 29 H 25 H 29 H Rate Blood Pressure 132/84 142/78 142/78 O2 Sat by Pulse 90 86 92 Oximetry 05/25/20 05/25/20 05/25/20 18:21 18:30 18:41 Temperature Pulse Rate 89 88 91 H Respiratory 27 H 26 H 24 Rate Blood Pressure 148/79 148/79 148/79 O2 Sat by Pulse 92 89 92 Oximetry 05/25/20 05/25/20 05/25/20 18:51 19:01 19:11 Temperature Pulse Rate 85 82 84 Respiratory 30 H 25 H 25 H Rate Blood Pressure 140/85 124/68 124/68 O2 Sat by Pulse 91 91 86 Oximetry 05/25/20 05/25/20 05/25/20 19:21 19:31 19:45 Temperature Pulse Rate 96 H 89 82 Respiratory 33 H 24 26 H Rate Blood Pressure 136/69 139/75 139/75 O2 Sat by Pulse 83 L 93 90 Oximetry 05/25/20 05/25/20 05/25/20 20:00 20:15 20:30 Temperature Pulse Rate 83 82 82 Respiratory 21 27 H 28 H Rate Blood Pressure 136/79 136/79 121/75 O2 Sat by Pulse 87 89 88 Oximetry 05/25/20 05/25/20 05/25/20 20:45 21:01 21:15 Temperature Pulse Rate 78 87 78 Respiratory 25 H 27 H 21 Rate Blood Pressure 132/78 132/78 132/78 O2 Sat by Pulse 90 88 86 Oximetry 05/25/20 05/25/20 21:31 22:25 Temperature 97.2 F L Pulse Rate 83 84 Respiratory 26 H 18 Rate Blood Pressure 132/78 133/81 O2 Sat by Pulse 83 L 91 Oximetry General appearance: no acute distress, alert Eyes: non-icteric Neck: supple Effort: mildly labored Ascultation: Bilateral: clear (anteriorly) Cardiovascular: regular rate and rhythm (no mrg) Gastrointestinal: normoactive bowel sounds, soft, non-tender, non-distended Integumentary: normal Extremities: no cyanosis, no edema, pink and warm normal mental status, non-focal exam, pupils equal and round, CN II-XII normal mood appropriate, affect normal Results - Laboratory Findings CBC and BMP: 05/25/20 11:31 05/25/20 11:31 PT/INR, D-dimer D-Dimer 418.22 ng/mlDDU (0-234) H 05/25/20 02:55 Abnormal lab findings: Abnormal Labs 05/24/20 05/24/20 05/24/20 17:46 17:46 17:46 RBC 6.03 H Hgb 18.9 H Hct 54.1 H MCHC 35 H Lymph % (Auto) 8.6 L [place] % (Auto) 15.9 H Lymph # (Auto) 0.7 L [place] # (Auto) 1.4 H Seg Neutrophils % 74.9 H D-Dimer 569.00 H Sodium 131 L Chloride 93.2 L Creatinine 0.6 L Glucose 273 H POC Glucose Hemoglobin A1c Lactic Acid Ferritin Total Bilirubin 1.40 H AST 101 H ALT 78 H Lactate Dehydrogenase 505 H C-Reactive Protein 3.50 H Albumin 3.1 L Ur Specific [place] Urine WBC (Auto) 05/24/20 05/24/20 05/24/20 17:46 17:46 20:40 RBC Hgb Hct MCHC Lymph % (Auto) [place] % (Auto) Lymph # (Auto) [place] # (Auto) Seg Neutrophils % D-Dimer Sodium Chloride Creatinine Glucose 268 H POC Glucose Hemoglobin A1c Lactic Acid 2.30 H* Ferritin 3592.0 H Total Bilirubin AST ALT Lactate Dehydrogenase 476 H C-Reactive Protein 3.40 H Albumin Ur Specific [place] Urine WBC (Auto) 05/25/20 05/25/20 05/25/20 02:55 02:55 02:55 RBC Hgb Hct MCHC Lymph % (Auto) [place] % (Auto) Lymph # (Auto) [place] # (Auto) Seg Neutrophils % D-Dimer 418.22 H Sodium Chloride Creatinine Glucose 290 H POC Glucose Hemoglobin A1c Lactic Acid Ferritin 2913.0 H Total Bilirubin AST ALT Lactate Dehydrogenase 396 H C-Reactive Protein 3.20 H Albumin Ur Specific [place] Urine WBC (Auto) 05/25/20 05/25/20 05/25/20 05:41 10:32 11:31 RBC 5.28 H Hgb 16.8 H Hct 47.8 H D MCHC 35 H Lymph % (Auto) 10.9 L [place] % (Auto) 13.6 H Lymph # (Auto) 0.5 L [place] # (Auto) Seg Neutrophils % 75.3 H D-Dimer Sodium Chloride Creatinine Glucose POC Glucose 309 H Hemoglobin A1c Lactic Acid Ferritin Total Bilirubin AST ALT Lactate Dehydrogenase C-Reactive Protein Albumin Ur Specific [place] 1.032 H Urine WBC (Auto) 7.0 H 05/25/20 05/25/20 05/25/20 11:31 11:31 17:44 RBC Hgb Hct MCHC Lymph % (Auto) [place] % (Auto) Lymph # (Auto) [place] # (Auto) Seg Neutrophils % D-Dimer Sodium 134 L Chloride 96.2 L Creatinine 0.5 L Glucose 322 H POC Glucose 370 H Hemoglobin A1c 11.3 H Lactic Acid Ferritin Total Bilirubin AST ALT Lactate Dehydrogenase C-Reactive Protein Albumin Ur Specific [place] Urine WBC (Auto) 05/25/20 22:22 RBC Hgb Hct MCHC Lymph % (Auto) [place] % (Auto) Lymph # (Auto) [place] # (Auto) Seg Neutrophils % D-Dimer Sodium Chloride Creatinine Glucose POC Glucose 308 H Hemoglobin A1c Lactic Acid Ferritin Total Bilirubin AST ALT Lactate Dehydrogenase C-Reactive Protein Albumin Ur Specific [place] Urine WBC (Auto) - Diagnostic Findings Chest x-ray: report reviewed, image reviewed Assessment and Plan Imp: 1. Pneumonia 2. Acute respiratory failure, hypoxia 3. New-onset DM 4. Polycythemia Rec: 1. Agree with CAP coverage 2. Influenza testing 3. Consider repeat Covid-19 PCR as the clinical picture including labs seems consistent with the same, despite initial negative test; agree with Decadron as ordered and would get ID input 4. DVT PPx Complex decision-making Plan of care reviewed w/ patient, he understands/agrees
[2020-05-25] MEDS: INSULIN GLARGINE 100 UNITS/ML SUB-Q SCH (23:44)
--- NOTE | 2020-05-26 09:13 | XRay Report ---
CHEST 1 VIEW INDICATION: follow up respiratory failure COMPARISON: 05/25/2020 FINDINGS: SUPPORT DEVICES: None. HEART / MEDIASTINUM: No significant abnormality. LUNGS / PLEURA: Diffuse pulmonary process again noted with patchy airspace component predominantly lo wer lungs. No evidence of a pleural effusion. No pneumothorax. ADDITIONAL FINDINGS: IMPRESSION: 1. No interval change as compared to previous exam Signer Name: Bladimir Gerard MD Signed: 05/26/2020 9:09 AM Workstation Name: [id number]
[2020-05-26] MEDS: ASCORBIC ACID 500 MG TAB PO SCH ×2 (10:08→22:06)
[2020-05-26] MEDS: FAMOTIDINE 20 MG TAB PO SCH ×2 (10:08→22:05)
[2020-05-26] MEDS: dexAMETHasone 4 MG/ML VIAL IV SCH (10:09)
[2020-05-26] MEDS: ENOXAPARIN 40 MG/0.4 ML INJ SUB-Q SCH (10:09)
--- NOTE | 2020-05-26 11:23 | Progress Note ---
Assessment and Plan Assessment and plan: he patient is a 54-year-old male present with a chief complaint of shortness of breath. Patient states he came to the emergency department because of "Covid." The patient states for the past 2 weeks he has had shortness of breath weakness and lethargy. Patient admits to fever 100.4 F and a cough occasionally productive of sputum. Patient states he feels dehydrated. The patient states he's never had a Covid test Ed Work up shows WBC 8.7, hemoglobin 18.9, d-dimer 569, sodium 131, potasium 4.1, Cr .06, serum glucose 268, and ferritin 3592 Chest x-ray-shows bilateral Pneumonia Patient seen at bedside, on oxygen per N/c. He admits alcohol use but quit 2 years ago. Reviewed lab, mar, and v/s 05/24: Add insulin for BG control, consult Pulmonary considering Hypoxia. Continue current management and check hgb A1C. 05/26. Remains on oxygen. Influenza sawb today. ID and pulmonlogy following. Plan (1) Bilateral pneumonia Current Visit: Yes Status: Acute Plan to address problem: COVID-19 negative. Antibiotics ID consult (2) Suspected COVID-19 virus infection Current Visit: Yes Status: Acute Plan to address problem: COVID-19 negative. ID consulted (3) Acute respiratory failure with hypoxia Current Visit: Yes Status: Acute Plan to address problem: Likely 2/2 viral versus bacterial pneumonia PRN bronchodilators and oxygen supplement Cardiopulmonary or GI on board Encourage prone position and use of incentive spirometer while awake (4) Diabetes mellitus-newly diagnosed Hemoglobin A1c 11.3 Continue Lantus and lispro Diabetic education (5) DVT prophylaxis Current Visit: Yes Status: Acute Plan to address problem: Lovenox (6) Advance care planning Current Visit: Yes Status: Acute Plan to address problem: Full code status History Interval history: He still has shortness of breath Remains on oxygen Plan to perform influenza PCR COVID-19 is negative ID consulted Hospitalist Physical - Physical exam Narrative exam: VITAL SIGNS: Reviewed. GENERAL: Awake HEAD: No signs of head trauma. EYES: Pupils are equal. Extraocular motions intact. MOUTH: Oropharynx is normal. NECK: No adenopathy, no JVD. CHEST: Chest with diminished breath sounds bilaterally. No wheezes, rales, or rhonchi. CARDIAC: normal S1 and S2, without murmurs, gallops, or rubs. ABDOMEN: Soft, non tender and non distended. No rebound or guarding, and no masses palpated. Bowel Sounds normal. MUSCULOSKELETAL: No edema NEUROLOGIC EXAM: Alert and oriented x3. No focal neurologic deficits SKIN: No obvious lesions - Constitutional Vitals: Temp Pulse Resp BP Pulse Ox 97.5 F L 82 18 117/76 91 05/26/20 04:12 05/26/20 04:12 05/26/20 04:12 05/26/20 04:12 05/26/20 08:44 HEART Score - HEART Score Troponin: Troponin T < 0.010 ng/mL (0.00-0.029) 05/24/20 17:46 Results - Labs CBC & Chem 7: 05/25/20 11:31 05/25/20 11:31 Labs: Laboratory Last Values WBC 4.7 K/mm3 (4.5-11.0) 05/25/20 11:31 RBC 5.28 M/mm3 (3.65-5.03) H 05/25/20 11:31 Hgb 16.8 gm/dl (11.8-15.2) H 05/25/20 11:31 Hct 47.8 % (35.5-45.6) H D 05/25/20 11:31 MCV 91 fl (84-94) 05/25/20 11:31 MCH 32 pg (28-32) 05/25/20 11:31 MCHC 35 % (32-34) H 05/25/20 11:31 RDW 13.4 % (13.2-15.2) 05/25/20 11:31 Plt Count 152 K/mm3 (140-440) 05/25/20 11:31 Lymph % (Auto) 10.9 % (13.4-35.0) L 05/25/20 11:31 [place] % (Auto) 13.6 % (0.0-7.3) H 05/25/20 11:31 Eos % (Auto) 0.0 % (0.0-4.3) 05/25/20 11:31 Baso % (Auto) 0.2 % (0.0-1.8) 05/25/20 11:31 Lymph # (Auto) 0.5 K/mm3 (1.2-5.4) L 05/25/20 11:31 [place] # (Auto) 0.6 K/mm3 (0.0-0.8) 05/25/20 11:31 Eos # (Auto) 0.0 K/mm3 (0.0-0.4) 05/25/20 11:31 Baso # (Auto) 0.0 K/mm3 (0.0-0.1) 05/25/20 11:31 Add Manual Diff Complete 05/24/20 17:46 Seg Neutrophils % 75.3 % (40.0-70.0) H 05/25/20 11:31 Seg Neutrophils # 3.5 K/mm3 (1.8-7.7) 05/25/20 11:31 D-Dimer 418.22 ng/mlDDU (0-234) H 05/25/20 02:55 Sodium 134 mmol/L (137-145) L 05/25/20 11:31 Potassium 4.8 mmol/L (3.6-5.0) 05/25/20 11:31 Chloride 96.2 mmol/L (98-107) L 05/25/20 11:31 Carbon Dioxide 29 mmol/L (22-30) 05/25/20 11:31 Anion Gap 14 mmol/L 05/25/20 11:31 BUN 18 mg/dL (9-20) 05/25/20 11:31 Creatinine 0.5 mg/dL (0.8-1.3) L 05/25/20 11:31 Estimated GFR > 60 ml/min 05/25/20 11:31 BUN/Creatinine Ratio 36 % 05/25/20 11:31 Glucose 322 mg/dL (75-100) H 05/25/20 11:31 POC Glucose 308 mg/dL (70-105) H 05/25/20 22:22 Hemoglobin A1c 11.3 % (4-6) H 05/25/20 11:31 Lactic Acid 1.50 mmol/L (0.7-2.0) 05/25/20 02:55 Calcium 8.6 mg/dL (8.4-10.2) 05/25/20 11:31 Ferritin 2913.0 ng/mL (30.0-300.0) H 05/25/20 02:55 Total Bilirubin 1.40 mg/dL (0.1-1.2) H 05/24/20 17:46 AST 101 units/L (5-40) H 05/24/20 17:46 ALT 78 units/L (7-56) H 05/24/20 17:46 Alkaline Phosphatase 82 units/L (35-129) 05/24/20 17:46 Lactate Dehydrogenase 396 units/L (91-180) H 05/25/20 02:55 Troponin T < 0.010 ng/mL (0.00-0.029) 05/24/20 17:46 C-Reactive Protein 3.20 mg/dL (0.00-1.30) H 05/25/20 02:55 NT-Pro-B Natriuret Pep 53.57 pg/mL (0-900) 05/24/20 18:14 Total Protein 7.8 g/dL (6.3-8.2) 05/24/20 17:46 Albumin 3.1 g/dL (3.9-5) L 05/24/20 17:46 Albumin/Globulin Ratio 0.7 % 05/24/20 17:46 Procalcitonin 0.14 ng/mL (<0.15) 05/25/20 02:55 Urine Color Ana (Yellow) 05/25/20 05:41 Urine Turbidity Clear (Clear) 05/25/20 05:41 Urine pH 6.0 (5.0-7.0) 05/25/20 05:41 Ur Specific [place] 1.032 (1.003-1.030) H 05/25/20 05:41 Urine Protein 100 mg/dl mg/dL (Negative) 05/25/20 05:41 Urine Glucose (UA) >=500 mg/dL (Negative) 05/25/20 05:41 Urine Ketones 20 mg/dL (Negative) 05/25/20 05:41 Urine Blood Neg (Negative) 05/25/20 05:41 Urine Nitrite Neg (Negative) 05/25/20 05:41 Urine Bilirubin Neg (Negative) 05/25/20 05:41 Urine Urobilinogen 4.0 mg/dL (<2.0) 05/25/20 05:41 Ur Leukocyte Esterase Neg (Negative) 05/25/20 05:41 Urine WBC (Auto) 7.0 /HPF (0.0-6.0) H 05/25/20 05:41 Urine RBC (Auto) 1.0 /HPF (0.0-6.0) 05/25/20 05:41 Urine Bacteria (Auto) 1+ /HPF (Negative) 05/25/20 05:41 Urine Mucus 1+ /HPF 05/25/20 05:41 Coronavirus (PCR) Negative (Negative) 05/25/20 09:45 Influenza A (Rapid) Negative (Negative) 05/26/20 Unknown Influenza B (Rapid) Negative (Negative) 05/26/20 Unknown Microbiology: Microbiology 05/24/20 17:46 Peripheral/Venous Blood Culture - Preliminary NO GROWTH AFTER 24 HOURS 05/24/20 17:46 Peripheral/Venous Blood Culture - Preliminary NO GROWTH AFTER 24 HOURS Barber/IV: Voiding Method Urinal IV Catheter Type [Left Peripheral IV Antecubital] Active Medications - Current Medications Current Medications: Generic Name Dose Route Start Last Admin Trade Name Freq PRN Reason Stop Dose Admin Acetaminophen 650 mg 05/24/20 21:35 Acetaminophen 325 Mg Tab PO Q4H PRN Pain MILD(1-3)/Fever >100.5/LEAL Al Hydrox/Mg Hydrox/Simethicone 30 ml 05/24/20 21:35 Alum-Mag Hydroxide-Simethicone 710-889-45sq/5ml Oral Liqd 30 Ml PO Q4H PRN Indigestion Albuterol 2.5 mg 05/24/20 21:35 Albuterol 2.5 Mg/3 Ml Nebu IH Q4HRT PRN Shortness Of Breath Alprazolam 0.125 mg 05/24/20 21:35 Alprazolam 0.25 Mg Tab PO Q8H PRN Anxiety Ascorbic Acid 500 mg 05/24/20 22:00 05/26/20 10:08 Ascorbic Acid 500 Mg Tab PO 500 mg BID JEFF Administration Dexamethasone 6 mg 05/26/20 10:00 05/26/20 10:09 Dexamethasone 4 Mg/Ml Vial IV 6 mg DAILY JEFF Administration Dextrose 50 ml 05/25/20 07:13 Dextrose 50% In Water (25gm) 50 Ml Syringe IV Q30MIN PRN Hypoglycemia Protocol Docusate Sodium 100 mg 05/24/20 21:35 Docusate Sodium 100 Mg Cap PO BID PRN Constipation Enoxaparin Sodium 40 mg 05/24/20 22:00 05/26/20 10:09 Enoxaparin 40 Mg/0.4 Ml Inj SUB-Q 40 mg DAILY JEFF Administration Protocol Famotidine 20 mg 05/24/20 22:00 05/26/20 10:08 Famotidine 20 Mg Tab PO 20 mg BID JEFF Administration Hydrophilic Ointment 1 applic 05/24/20 20:35 Lip Therapy Vaseline TP Q2HR PRN Dry Lips Ceftriaxone Sodium 2 gm in 100 mls @ 200 mls/hr 05/25/20 22:00 05/25/20 21:37 Rocephin/Ns 2 Gm/100 Ml IV 200 mls/hr Q24H JEFF Administration Protocol Azithromycin 500 mg/ Sodium 250 mls @ 250 mls/hr 05/25/20 22:00 05/25/20 22:09 Chloride IV 250 mls/hr Q24H [facility] Administration Protocol Insulin Glargine 12 units 05/25/20 22:00 05/25/20 23:44 Insulin Glargine 100 Units/Ml SUB-Q 12 units QHS JEFF Administration Insulin Human Lispro 0 unit 05/25/20 07:30 05/25/20 23:46 Insulin Lispro 100 Unit/Ml Vial 3 Ml SUB-Q 8 unit ACHS [facility] Administration Protocol Magnesium Hydroxide 30 ml 05/24/20 21:35 Magnesium Hydroxide (Mom) Oral Liqd Udc PO Q4H PRN Constipation Metoclopramide HCl 10 mg 05/24/20 21:35 Metoclopramide 10 Mg/2 Ml Inj IV Q6H PRN Nausea And Vomiting Multi-Ingred Cream/Lotion/Oil/Oint 1 applic 05/24/20 20:35 Mineral Oil/Petrolatum, White Ophth Oint 3.5 Gm OU Q4HR PRN Dry Eye(s) Ondansetron HCl 4 mg 05/24/20 21:35 Ondansetron 4 Mg/2 Ml Inj IV Q8H PRN Nausea And Vomiting Sodium Chloride 10 ml 05/24/20 22:00 05/26/20 10:11 Sodium Chloride 0.9% 10 Ml Flush Syringe IV 10 ml BID JEFF Administration Sodium Chloride 10 ml 05/24/20 21:35 Sodium Chloride 0.9% 10 Ml Flush Syringe IV PRN PRN LINE FLUSH Zinc Sulfate 220 mg 05/25/20 10:00 05/25/20 11:10 Zinc Sulfate 220 Mg Cap PO 220 mg QDAY JEFF Administration Zolpidem Tartrate 5 mg 05/24/20 21:35 Zolpidem 5 Mg Tab PO QHS PRN Insomnia Nutrition/Malnutrition Assess - Dietary Evaluation Nutrition/Malnutrition Findings: Nutrition Notes Start: 05/25/20 09:38 Freq: Status: Active Protocol: Document 05/25/20 09:38 (Rec: 05/25/20 09:41 [id number]) Nutrition Notes Need for Assessment generated from: MD Order Initial or Follow up Brief Note Other Pertinent Diagnosis COVID PUI, pneumonia, acute respiratory failure Current Diet Regular Subjective/Other Information MD order to evaluate intakes. Pt on hold in ED. Pt is not on the vent. Per chart, pt has been feeling lethargic for 2 weeks. Nutrition Intervention Follow-Up By: 05/27/20 Additional Comments FU for full asssessment
[2020-05-26] MEDS: INSULIN LISPRO 100 UNIT/ML VIAL 3 mL SUB-Q SCH ×4 (13:07→22:04)
[2020-05-26] MEDS: ZINC SULFATE 220 MG CAP PO SCH (13:21)
--- NOTE | 2020-05-26 15:58 | Consultation ---
History of Present Illness - Reason for Consult Consult date: 05/26/20 Rule out COVID-19 Requesting physician: ALBA NAVARRO - History of Present Illness 54 years old male with history of polycythemia, admitted on 05/24/2020 secondary to 2-week history of generalized malaise, weakness, cough and shortness of breath associated with lethargy.On arrival, temperature 100.4, HR 80, O2 sat 81%, BP 146/84. Initial WBC 8.7. Lactate 2.3. Ferritin 3592. D-dimer 985. Procalcitonin 0.01. Glucose 327. Urinalysis negative. SARS-CoV-2 PCR negative. Influenza antigen negative. Blood cultures negative. In the ED, initial WBC 8.7, D-dimer 569, ferritin 3592. Chest x-ray shows bilateral pneumonia. Review of Systems: positive in bold print General: fever, chills, malaise Cutaneous: rash, pruritus Head: headaches or injury Eyes: changes in vision, eye pain, double vision Ears: ear pain, ear discharge, ringing or hearing loss Nose: nose bleeding, stuffiness Mouth & throat: bleeding gums, horseness, no dental problems, or swollen glands Neck: no pain, node enlargement/lumps, tyroid enlargement or tenderness Respiratory: SOB, cough, DAVILA, wheezing, sputum, hemoptysis, pleuritic chest pain Cardiovascular: chest pain, leg edema, cyanosis, DAVILA, orthopnea Musculoskeletal: edema, deformities, pain Gastrointestinal: nausea, vomiting, hematemesis, diarrhea, constipation, melena, bright red blood in stools, fecal incontinence, jaundice Genitourinary/Reproductive: frequent urination, dysuria, hematuria, incontinence Neurogical: seizures, headaches, weakness, paresthesias, loss of speech or vision; memory loss, vertigo, tremors, numbness Psychiatric: stable mood; excessive anxiety, sadness or moodiness Past History Past Medical History: other (denies Past medical hx) Social history: lives with family (Lives with parent), alcohol abuse (quit alcohol use 2 years ago), full code. denies: prescription drug abuse, IV drug use Family history: diabetes, hypertension Medications and Allergies Allergies Allergy/AdvReac Type Severity Reaction Status Date / Time Penicillins Allergy Unknown Verified 05/24/20 20:57 Home Medications Medication Instructions Recorded Confirmed Last Taken Type No Known Home Medications [No 05/25/20 05/25/20 Unknown History Reported Home Medications] Active Meds: Active Medications Acetaminophen (Acetaminophen 325 Mg Tab) 650 mg PO Q4H PRN PRN Reason: Pain MILD(1-3)/Fever >100.5/LEAL Al Hydrox/Mg Hydrox/Simethicone (Alum-Mag Hydroxide-Simethicone [id number]/5ml Oral Liqd 30 Ml) 30 ml PO Q4H PRN PRN Reason: Indigestion Albuterol (Albuterol 2.5 Mg/3 Ml Nebu) 2.5 mg IH Q4HRT PRN PRN Reason: Shortness Of Breath Alprazolam (Alprazolam 0.25 Mg Tab) 0.125 mg PO Q8H PRN PRN Reason: Anxiety Ascorbic Acid (Ascorbic Acid 500 Mg Tab) 500 mg PO BID [facility] Last Admin: 05/26/20 10:08 Dose: 500 mg Documented by: Dexamethasone (Dexamethasone 4 Mg/Ml Vial) 6 mg IV DAILY [facility] Last Admin: 05/26/20 10:09 Dose: 6 mg Documented by: Dextrose (Dextrose 50% In Water (25gm) 50 Ml Syringe) 50 ml IV Q30MIN PRN; Protocol PRN Reason: Hypoglycemia Docusate Sodium (Docusate Sodium 100 Mg Cap) 100 mg PO BID PRN PRN Reason: Constipation Enoxaparin Sodium (Enoxaparin 40 Mg/0.4 Ml Inj) 40 mg SUB-Q DAILY [facility]; Protocol Last Admin: 05/26/20 10:09 Dose: 40 mg Documented by: Famotidine (Famotidine 20 Mg Tab) 20 mg PO BID JEFF Last Admin: 05/26/20 10:08 Dose: 20 mg Documented by: Hydrophilic Ointment (Lip Therapy Vaseline) 1 applic TP Q2HR PRN PRN Reason: Dry Lips Ceftriaxone Sodium (Rocephin/Ns 2 Gm/100 Ml) 2 gm in 100 mls @ 200 mls/hr IV Q24H JEFF; Protocol Last Admin: 05/25/20 21:37 Dose: 200 mls/hr Documented by: Azithromycin 500 mg/ Sodium (Chloride) 250 mls @ 250 mls/hr IV Q24H JEFF; Protocol Last Admin: 05/25/20 22:09 Dose: 250 mls/hr Documented by: Insulin Glargine (Insulin Glargine 100 Units/Ml) 12 units SUB-Q QHS [facility] Last Admin: 05/25/20 23:44 Dose: 12 units Documented by: Insulin Human Lispro (Insulin Lispro 100 Unit/Ml Vial 3 Ml) 0 unit SUB-Q ACHS [facility]; Protocol Last Admin: 05/26/20 13:21 Dose: 6 unit Documented by: Magnesium Hydroxide (Magnesium Hydroxide (Mom) Oral Liqd Udc) 30 ml PO Q4H PRN PRN Reason: Constipation Metoclopramide HCl (Metoclopramide 10 Mg/2 Ml Inj) 10 mg IV Q6H PRN PRN Reason: Nausea And Vomiting Multi-Ingred Cream/Lotion/Oil/Oint (Mineral Oil/Petrolatum, White Ophth Oint 3.5 Gm) 1 applic OU Q4HR PRN PRN Reason: Dry Eye(s) Ondansetron HCl (Ondansetron 4 Mg/2 Ml Inj) 4 mg IV Q8H PRN PRN Reason: Nausea And Vomiting Sodium Chloride (Sodium Chloride 0.9% 10 Ml Flush Syringe) 10 ml IV BID [facility] Last Admin: 05/26/20 10:11 Dose: 10 ml Documented by: Sodium Chloride (Sodium Chloride 0.9% 10 Ml Flush Syringe) 10 ml IV PRN PRN PRN Reason: LINE FLUSH Zinc Sulfate (Zinc Sulfate 220 Mg Cap) 220 mg PO QDAY [facility] Last Admin: 05/26/20 13:21 Dose: 220 mg Documented by: Zolpidem Tartrate (Zolpidem 5 Mg Tab) 5 mg PO QHS PRN PRN Reason: Insomnia Physical Examination - Physical Exam Narrative exam: General appearance: Alert in no acute distress Eyes: anicteric sclerae, moist conjunctivae; no lid-lag; PERRLA HENT: Normocephalic, Atraumatic; normal external ears, nares open, oropharynx limited Neck: supple, tracheal midline, no JVD Lungs: Bilateral crackles CV: RRR no murmur Abdomen: Soft, non-tender; no masses or hepatosplenomegaly Extremities: no edema, no cyanosis Skin: No rash. Psych: no agitated Neuro: alert and oriented x 3. Moving all extermities - Constitutional Vitals: Vital Signs Temp Pulse Resp BP Pulse Ox 97.7 F 76 18 128/80 91 05/26/20 12:50 05/26/20 12:50 05/26/20 12:50 05/26/20 12:50 05/26/20 08:44 Temperature -Last 24 Hours Temperature 97.7 F Temperature 97.5 F Temperature 97.2 F Results - Labs CBC & Chem 7: 05/25/20 11:31 05/25/20 11:31 Labs: Abnormal lab results 05/25/20 05/25/20 05/26/20 Range/Units 17:44 22:22 11:27 POC Glucose 370 H 308 H 283 H (70-105) mg/dL Assessment and Plan Cultures: SARS-CoV-2 PCR negative Influenza antigen negative Blood cultures no growth today Assessment: 54 years old male with history of polycythemia, admitted on 05/24/2020 secondary to 2-week history of generalized malaise, weakness, cough and shortness of breath associated with lethargy: #Sepsis: Present on admission with low-grade fever, elevated lactate; likely due to bilateral pneumonia. Urinalysis negative. #Bilateral pneumonia: Chest x-ray shows bilateral infiltrates. SARS PCR negative. Noted inflammatory markers for Covid including ferritin and D-dimer elevated. ? Late COVID-19 infection /cytokine storm with already negative PCR versus community-acquired pneumonia. Procalcitonin is low. #Elevated D-dimer: Evaluate for DVT/PE #Acute hypoxemic respiratory failure: Secondary to bilateral pneumonia/evaluate for PE Recommendations: Needs to rule out DVT and PE Agree with repeat SARS-CoV-2 PCR No indication for remdesivir even if PCR is positive given symptoms for over 2 weeks Check SARS Cov2 IgG to determine recent COVID-19 infection causing cytokine storm Continue steroids for now Continue ceftriaxone and azithromycin, procalcitonin is low, doubt bacterial pneumonia however no other clear etiology of pneumonia causing hypoxia Will follow. Jenifer Hall MD Infectious Diseases Supervisor [facility] M [phone]
--- NOTE | 2020-05-26 20:17 | Progress Note ---
Assessment and Plan Imp: 1. Pneumonia 2. Acute respiratory failure, hypoxia 3. New-onset DM 4. Polycythemia 5. Transaminitis, ? due to Covid Rec: 1. Agree with CAP coverage 2. Influenza testing negative thus far though sent PCR as well 3. Consider repeat Covid-19 PCR as the clinical picture including labs seems consistent with the same, despite initial negative test; agree with Decadron as ordered; SARS CoV-2 IgG ordered by ID; agree this could be late Covid w/ cytokine storm and now negative nasal PCR 4. DVT PPx; D-dimer is decreasing and less than 500 so hold off on CTA chest for now; cont. to trend inflammatory markers 5. Trend LFTs 6. His dad is sick in ED now; need to determine if he tests positive for Covid which would lend support for this diagnosis in the current case Complex decision-making Plan of care reviewed w/ patient, he understands/agrees Subjective Date of service: 05/26/20 Principal diagnosis: Pneumonia Interval history: No events. Remains on [place] at 15 liters. SOB a little better. No new complaints. Active Medications Acetaminophen (Acetaminophen 325 Mg Tab) 650 mg PO Q4H PRN PRN Reason: Pain MILD(1-3)/Fever >100.5/LEAL Al Hydrox/Mg Hydrox/Simethicone (Alum-Mag Hydroxide-Simethicone [phone]/5ml Oral Liqd 30 Ml) 30 ml PO Q4H PRN PRN Reason: Indigestion Albuterol (Albuterol 2.5 Mg/3 Ml Nebu) 2.5 mg IH Q4HRT PRN PRN Reason: Shortness Of Breath Alprazolam (Alprazolam 0.25 Mg Tab) 0.125 mg PO Q8H PRN PRN Reason: Anxiety Ascorbic Acid (Ascorbic Acid 500 Mg Tab) 500 mg PO BID [facility] Last Admin: 05/26/20 10:08 Dose: 500 mg Documented by: Dexamethasone (Dexamethasone 4 Mg/Ml Vial) 6 mg IV DAILY [facility] Last Admin: 05/26/20 10:09 Dose: 6 mg Documented by: Dextrose (Dextrose 50% In Water (25gm) 50 Ml Syringe) 50 ml IV Q30MIN PRN; Protocol PRN Reason: Hypoglycemia Docusate Sodium (Docusate Sodium 100 Mg Cap) 100 mg PO BID PRN PRN Reason: Constipation Enoxaparin Sodium (Enoxaparin 40 Mg/0.4 Ml Inj) 40 mg SUB-Q DAILY [facility]; Protocol Last Admin: 05/26/20 10:09 Dose: 40 mg Documented by: Famotidine (Famotidine 20 Mg Tab) 20 mg PO BID [facility] Last Admin: 05/26/20 10:08 Dose: 20 mg Documented by: Hydrophilic Ointment (Lip Therapy Vaseline) 1 applic TP Q2HR PRN PRN Reason: Dry Lips Ceftriaxone Sodium (Rocephin/Ns 2 Gm/100 Ml) 2 gm in 100 mls @ 200 mls/hr IV Q24H [facility]; Protocol Last Admin: 05/25/20 21:37 Dose: 200 mls/hr Documented by: Azithromycin 500 mg/ Sodium (Chloride) 250 mls @ 250 mls/hr IV Q24H [facility]; Protocol Last Admin: 05/25/20 22:09 Dose: 250 mls/hr Documented by: Insulin Glargine (Insulin Glargine 100 Units/Ml) 12 units SUB-Q QHS [facility] Last Admin: 05/25/20 23:44 Dose: 12 units Documented by: Insulin Human Lispro (Insulin Lispro 100 Unit/Ml Vial 3 Ml) 0 unit SUB-Q ACHS [facility]; Protocol Last Admin: 05/26/20 16:32 Dose: 8 unit Documented by: Magnesium Hydroxide (Magnesium Hydroxide (Mom) Oral Liqd Udc) 30 ml PO Q4H PRN PRN Reason: Constipation Metoclopramide HCl (Metoclopramide 10 Mg/2 Ml Inj) 10 mg IV Q6H PRN PRN Reason: Nausea And Vomiting Multi-Ingred Cream/Lotion/Oil/Oint (Mineral Oil/Petrolatum, White Ophth Oint 3.5 Gm) 1 applic OU Q4HR PRN PRN Reason: Dry Eye(s) Ondansetron HCl (Ondansetron 4 Mg/2 Ml Inj) 4 mg IV Q8H PRN PRN Reason: Nausea And Vomiting Sodium Chloride (Sodium Chloride 0.9% 10 Ml Flush Syringe) 10 ml IV BID [facility] Last Admin: 05/26/20 10:11 Dose: 10 ml Documented by: Sodium Chloride (Sodium Chloride 0.9% 10 Ml Flush Syringe) 10 ml IV PRN PRN PRN Reason: LINE FLUSH Zinc Sulfate (Zinc Sulfate 220 Mg Cap) 220 mg PO QDAY JEFF Last Admin: 05/26/20 13:21 Dose: 220 mg Documented by: Zolpidem Tartrate (Zolpidem 5 Mg Tab) 5 mg PO QHS PRN PRN Reason: Insomnia Objective Vital Signs - 12hr 05/26/20 05/26/20 05/26/20 08:44 12:50 18:50 Temperature 97.7 F 98.2 F Pulse Rate 76 75 Respiratory 18 18 Rate Blood Pressure 128/80 137/82 [Left] O2 Sat by Pulse 91 Oximetry Constitutional: no acute distress, alert Eyes: non-icteric Neck: supple Effort: mildly labored Ascultation: Bilateral: clear (anteriorly) Cardiovascular: regular rate and rhythm (no mrg) Gastrointestinal: normoactive bowel sounds, soft, non-tender, non-distended Integumentary: normal Extremities: no cyanosis, no edema, pink and warm Neurologic: normal mental status, non-focal exam, pupils equal and round, CN II- XII normal Psychiatric: mood appropriate, affect normal CBC and BMP: 05/25/20 11:31 05/25/20 11:31 ABG, PT/INR, D-dimer: PT/INR, D-dimer D-Dimer 418.22 ng/mlDDU (0-234) H 05/25/20 02:55 Abnormal lab findings: Abnormal Labs 05/24/20 05/24/20 05/24/20 17:46 17:46 17:46 RBC 6.03 H Hgb 18.9 H Hct 54.1 H MCHC 35 H Lymph % (Auto) 8.6 L [place] % (Auto) 15.9 H Lymph # (Auto) 0.7 L [place] # (Auto) 1.4 H Seg Neutrophils % 74.9 H D-Dimer 569.00 H Sodium 131 L Chloride 93.2 L Creatinine 0.6 L Glucose 273 H POC Glucose Hemoglobin A1c Lactic Acid Ferritin Total Bilirubin 1.40 H AST 101 H ALT 78 H Lactate Dehydrogenase 505 H C-Reactive Protein 3.50 H Albumin 3.1 L Ur Specific [place] Urine WBC (Auto) 05/24/20 05/24/20 05/24/20 17:46 17:46 20:40 RBC Hgb Hct MCHC Lymph % (Auto) [place] % (Auto) Lymph # (Auto) [place] # (Auto) Seg Neutrophils % D-Dimer Sodium Chloride Creatinine Glucose 268 H POC Glucose Hemoglobin A1c Lactic Acid 2.30 H* Ferritin 3592.0 H Total Bilirubin AST ALT Lactate Dehydrogenase 476 H C-Reactive Protein 3.40 H Albumin Ur Specific [place] Urine WBC (Auto) 05/25/20 05/25/20 05/25/20 02:55 02:55 02:55 RBC Hgb Hct MCHC Lymph % (Auto) [place] % (Auto) Lymph # (Auto) [place] # (Auto) Seg Neutrophils % D-Dimer 418.22 H Sodium Chloride Creatinine Glucose 290 H POC Glucose Hemoglobin A1c Lactic Acid Ferritin 2913.0 H Total Bilirubin AST ALT Lactate Dehydrogenase 396 H C-Reactive Protein 3.20 H Albumin Ur Specific [place] Urine WBC (Auto) 05/25/20 05/25/20 05/25/20 05:41 10:32 11:31 RBC 5.28 H Hgb 16.8 H Hct 47.8 H D MCHC 35 H Lymph % (Auto) 10.9 L [place] % (Auto) 13.6 H Lymph # (Auto) 0.5 L [place] # (Auto) Seg Neutrophils % 75.3 H D-Dimer Sodium Chloride Creatinine Glucose POC Glucose 309 H Hemoglobin A1c Lactic Acid Ferritin Total Bilirubin AST ALT Lactate Dehydrogenase C-Reactive Protein Albumin Ur Specific [place] 1.032 H Urine WBC (Auto) 7.0 H 05/25/20 05/25/20 05/25/20 11:31 11:31 17:44 RBC Hgb Hct MCHC Lymph % (Auto) [place] % (Auto) Lymph # (Auto) [place] # (Auto) Seg Neutrophils % D-Dimer Sodium 134 L Chloride 96.2 L Creatinine 0.5 L Glucose 322 H POC Glucose 370 H Hemoglobin A1c 11.3 H Lactic Acid Ferritin Total Bilirubin AST ALT Lactate Dehydrogenase C-Reactive Protein Albumin Ur Specific [place] Urine WBC (Auto) 05/25/20 05/26/20 05/26/20 22:22 11:27 16:18 RBC Hgb Hct MCHC Lymph % (Auto) [place] % (Auto) Lymph # (Auto) [place] # (Auto) Seg Neutrophils % D-Dimer Sodium Chloride Creatinine Glucose POC Glucose 308 H 283 H 313 H Hemoglobin A1c Lactic Acid Ferritin Total Bilirubin AST ALT Lactate Dehydrogenase C-Reactive Protein Albumin Ur Specific [place] Urine WBC (Auto) Chest x-ray: report reviewed, image reviewed (no change in bilateral infiltrates)
[2020-05-26] MEDS: INSULIN GLARGINE 100 UNITS/ML SUB-Q SCH (22:03)
[2020-05-26] MEDS: cefTRIAXone/NS 2 GM/100 ML 2 GM/100 ML BAG IV SCH (22:11)
[2020-05-26] MEDS: AZITHROMYCIN 500 MG in SODIUM CHLORIDE 0.9% 250ML 250 ML IV SCH (22:11)
[2020-05-27] MEDS: INSULIN LISPRO 100 UNIT/ML VIAL 3 mL SUB-Q SCH ×4 (09:02→22:04)
[2020-05-27 09:35] LABS: Basophils % (Auto) 0.1 % (0.0-1.8); Eosinophils % (Auto) 0.3 % (0.0-4.3); Hematocrit 48.2 % (35.5-45.6); Hemoglobin 16.8 gm/dl (11.8-15.2); Lymphocytes % (Auto) 12.7 % (13.4-35.0); Mean Corpuscular HGB Conc 35 % (32-34); Mean Corpuscular Volume 91 fl (84-94); Monocytes # (Auto) 0.7 K/mm3 (0.0-0.8); Monocytes % (Auto) 9.6 % (0.0-7.3); Platelet Count 223 K/mm3 (140-440); Red Blood Count 5.31 M/mm3 (3.65-5.03); Red Cell Distribution Width 13.3 % (13.2-15.2)
[2020-05-27 09:52] LABS: Alanine Aminotransferase 100 units/L (7-56); Albumin 3.1 g/dL (3.9-5); Blood Urea Nitrogen 16 mg/dL (9-20); Calcium 8.6 mg/dL (8.4-10.2); Hemolysis Index 32
[2020-05-27 09:53] LABS: BUN/Creatinine Ratio 32
[2020-05-27] MEDS: FAMOTIDINE 20 MG TAB PO SCH ×2 (10:26→22:05)
[2020-05-27] MEDS: ASCORBIC ACID 500 MG TAB PO SCH ×2 (10:26→22:05)
[2020-05-27] MEDS: ENOXAPARIN 40 MG/0.4 ML INJ SUB-Q SCH (10:26)
[2020-05-27] MEDS: ZINC SULFATE 220 MG CAP PO SCH (10:26)
[2020-05-27] MEDS: dexAMETHasone 4 MG/ML VIAL IV SCH (10:27)
--- NOTE | 2020-05-27 10:45 | XRay Report ---
CHEST 1 VIEW INDICATION / CLINICAL INFORMATION: follow up respiratory failure. COMPARISON: 05/26/2020 FINDINGS: SUPPORT DEVICES: None. HEART / MEDIASTINUM: No significant abnormality. LUNGS / PLEURA: Slight worsening of the bilateral airspace disease No pneumothorax. ADDITIONAL FINDINGS: No significant additional findings. IMPRESSION: Slight worsening of the bilateral airspace disease since yesterday Signer Name: Josesito Stahl MD FACR Signed: 05/27/2020 10:41 AM Workstation Name: [id number]
--- NOTE | 2020-05-27 12:29 | Progress Note ---
Assessment and Plan 54 y/o male with acute respiratory failure thought secondary to COVID but initial test negative, ab test positive now with send out pending. 1. Wean FiO2 for sats >88% 2. Prone as much as possible during the day and sleep prone at night 3. Steroids for 10 days 4. Daily net negative fluid balance if possible 5. Follow up repeat COVID test Guarded prognosis. Subjective Date of service: 05/27/20 Principal diagnosis: Pneumonia Interval history: Remains of 15 liters. Father is now admitted to the hospital. Objective Vital Signs - 12hr 05/27/20 04:54 O2 Sat by Pulse 92 Oximetry Constitutional: no acute distress, alert Eyes: non-icteric Neck: supple Effort: mildly labored Ascultation: Bilateral: clear (anteriorly) Cardiovascular: regular rate and rhythm (no mrg) Gastrointestinal: normoactive bowel sounds, soft, non-tender, non-distended Integumentary: normal Extremities: no cyanosis, no edema, pink and warm Neurologic: normal mental status, non-focal exam, pupils equal and round, CN II- XII normal Psychiatric: mood appropriate, affect normal CBC and BMP: 05/27/20 08:33 05/27/20 08:33 ABG, PT/INR, D-dimer: PT/INR, D-dimer D-Dimer 418.22 ng/mlDDU (0-234) H 05/25/20 02:55 Abnormal lab findings: Abnormal Labs 05/24/20 05/24/20 05/24/20 17:46 17:46 17:46 RBC 6.03 H Hgb 18.9 H Hct 54.1 H MCHC 35 H Lymph % (Auto) 8.6 L [place] % (Auto) 15.9 H Lymph # (Auto) 0.7 L [place] # (Auto) 1.4 H Seg Neutrophils % 74.9 H D-Dimer 569.00 H Sodium 131 L Chloride 93.2 L Carbon Dioxide Creatinine 0.6 L Glucose 273 H POC Glucose Hemoglobin A1c Lactic Acid Ferritin Total Bilirubin 1.40 H AST 101 H ALT 78 H Lactate Dehydrogenase 505 H C-Reactive Protein 3.50 H Albumin 3.1 L Ur Specific [place] Urine WBC (Auto) SARS-CoV-2 IgG Ab 05/24/20 05/24/20 05/24/20 17:46 17:46 20:40 RBC Hgb Hct MCHC Lymph % (Auto) [place] % (Auto) Lymph # (Auto) [place] # (Auto) Seg Neutrophils % D-Dimer Sodium Chloride Carbon Dioxide Creatinine Glucose 268 H POC Glucose Hemoglobin A1c Lactic Acid 2.30 H* Ferritin 3592.0 H Total Bilirubin AST ALT Lactate Dehydrogenase 476 H C-Reactive Protein 3.40 H Albumin Ur Specific [place] Urine WBC (Auto) SARS-CoV-2 IgG Ab 05/25/20 05/25/20 05/25/20 02:55 02:55 02:55 RBC Hgb Hct MCHC Lymph % (Auto) [place] % (Auto) Lymph # (Auto) [place] # (Auto) Seg Neutrophils % D-Dimer 418.22 H Sodium Chloride Carbon Dioxide Creatinine Glucose 290 H POC Glucose Hemoglobin A1c Lactic Acid Ferritin 2913.0 H Total Bilirubin AST ALT Lactate Dehydrogenase 396 H C-Reactive Protein 3.20 H Albumin Ur Specific [place] Urine WBC (Auto) SARS-CoV-2 IgG Ab 05/25/20 05/25/20 05/25/20 05:41 10:32 11:31 RBC 5.28 H Hgb 16.8 H Hct 47.8 H D MCHC 35 H Lymph % (Auto) 10.9 L [place] % (Auto) 13.6 H Lymph # (Auto) 0.5 L [place] # (Auto) Seg Neutrophils % 75.3 H D-Dimer Sodium Chloride Carbon Dioxide Creatinine Glucose POC Glucose 309 H Hemoglobin A1c Lactic Acid Ferritin Total Bilirubin AST ALT Lactate Dehydrogenase C-Reactive Protein Albumin Ur Specific [place] 1.032 H Urine WBC (Auto) 7.0 H SARS-CoV-2 IgG Ab 05/25/20 05/25/20 05/25/20 11:31 11:31 17:44 RBC Hgb Hct MCHC Lymph % (Auto) [place] % (Auto) Lymph # (Auto) [place] # (Auto) Seg Neutrophils % D-Dimer Sodium 134 L Chloride 96.2 L Carbon Dioxide Creatinine 0.5 L Glucose 322 H POC Glucose 370 H Hemoglobin A1c 11.3 H Lactic Acid Ferritin Total Bilirubin AST ALT Lactate Dehydrogenase C-Reactive Protein Albumin Ur Specific [place] Urine WBC (Auto) SARS-CoV-2 IgG Ab 05/25/20 05/26/20 05/26/20 22:22 11:27 16:18 RBC Hgb Hct MCHC Lymph % (Auto) [place] % (Auto) Lymph # (Auto) [place] # (Auto) Seg Neutrophils % D-Dimer Sodium Chloride Carbon Dioxide Creatinine Glucose POC Glucose 308 H 283 H 313 H Hemoglobin A1c Lactic Acid Ferritin Total Bilirubin AST ALT Lactate Dehydrogenase C-Reactive Protein Albumin Ur Specific [place] Urine WBC (Auto) SARS-CoV-2 IgG Ab 05/26/20 05/26/20 05/27/20 18:47 21:39 08:33 RBC 5.31 H Hgb 16.8 H Hct 48.2 H MCHC 35 H Lymph % (Auto) 12.7 L [place] % (Auto) 9.6 H Lymph # (Auto) 1.0 L [place] # (Auto) Seg Neutrophils % 77.3 H D-Dimer Sodium Chloride Carbon Dioxide Creatinine Glucose POC Glucose 314 H Hemoglobin A1c Lactic Acid Ferritin Total Bilirubin AST ALT Lactate Dehydrogenase C-Reactive Protein Albumin Ur Specific [place] Urine WBC (Auto) SARS-CoV-2 IgG Ab Reactive A 05/27/20 05/27/20 05/27/20 08:33 08:33 12:13 RBC Hgb Hct MCHC Lymph % (Auto) [place] % (Auto) Lymph # (Auto) [place] # (Auto) Seg Neutrophils % D-Dimer Sodium Chloride Carbon Dioxide 31 H Creatinine 0.5 L Glucose 192 H POC Glucose 197 H 237 H Hemoglobin A1c Lactic Acid Ferritin Total Bilirubin AST 75 H ALT 100 H Lactate Dehydrogenase C-Reactive Protein Albumin 3.1 L Ur Specific [place] Urine WBC (Auto) SARS-CoV-2 IgG Ab
--- NOTE | 2020-05-27 15:15 | Progress Note ---
Assessment and Plan Cultures: SARS-CoV-2 PCR negative but IgG positive Influenza antigen negative Blood cultures no growth Assessment: 54 years old male with history of polycythemia, admitted on 05/24/2020 secondary to 2-week history of generalized malaise, weakness, cough and shortness of breath associated with lethargy: #Sepsis: likely due to bilateral pneumonia. Urinalysis negative. #Bilateral pneumonia: COVID-19 PCR negative but IgG positive. Inflammatory markers are elevated. ?Late COVID-19 infection/cytokine storm v/s community- acquired pneumonia. Procalcitonin is low. #Acute hypoxemic respiratory failure: Secondary to bilateral pneumonia. #Transaminitis: Also may be related to COVID-19 Recommendations: -Continue steroids, complete at least 10 days -Continue empiric ceftriaxone, azithromycin, complete 5 days -Monitor inflammatory markers for COVID-19 -Prolonged symptoms, COVID-19 PCR negative, IgG positive, unlikely to benefit from remdesivir -consider VTE evaluation Fernando Johnson MD, FACP [facility] O: [phone] F: [phone] Subjective Date of service: 05/27/20 Principal diagnosis: Pneumonia Interval history: No fever. Remains on high flow. Objective - Exam Narrative Exam: Physical Exam (reviewed in chart to minimize risk of transmission) Constitutional: deferred Head, Ears, Nose: deferred Eyes: deferred Neck: deferred Oral: deferred Cardiovascular: deferred Respiratory: deferred GI: deferred Musculoskeletal: deferred Skin: deferred Hem/Lymphatic: deferred Psych: deferred Neurological: deferred - Constitutional Vitals: Vital Signs Temp Pulse Resp BP Pulse Ox 97.6 F 80 24 131/83 94 05/27/20 12:15 05/27/20 12:15 05/27/20 12:15 05/27/20 12:15 05/27/20 12:15 Temperature -Last 24 Hours Temperature 97.6 F Temperature 97.7 F Temperature 97.8 F Temperature 98.2 F - Labs CBC & Chem 7: 05/27/20 08:33 05/27/20 08:33 Labs: Abnormal lab results 05/26/20 05/26/20 05/26/20 Range/Units 16:18 18:47 21:39 RBC (3.65-5.03) M/mm3 Hgb (11.8-15.2) gm/dl Hct (35.5-45.6) % MCHC (32-34) % Lymph % (Auto) (13.4-35.0) % [place] % (Auto) (0.0-7.3) % Lymph # (Auto) (1.2-5.4) K/mm3 Seg Neutrophils % (40.0-70.0) % Carbon Dioxide (22-30) mmol/L Creatinine (0.8-1.3) mg/dL Glucose (75-100) mg/dL POC Glucose 313 H 314 H (70-105) mg/dL AST (5-40) units/L ALT (7-56) units/L Albumin (3.9-5) g/dL SARS-CoV-2 IgG Ab Reactive A (NonReactive) 05/27/20 05/27/20 05/27/20 Range/Units 08:33 08:33 08:33 RBC 5.31 H (3.65-5.03) M/mm3 Hgb 16.8 H (11.8-15.2) gm/dl Hct 48.2 H (35.5-45.6) % MCHC 35 H (32-34) % Lymph % (Auto) 12.7 L (13.4-35.0) % [place] % (Auto) 9.6 H (0.0-7.3) % Lymph # (Auto) 1.0 L (1.2-5.4) K/mm3 Seg Neutrophils % 77.3 H (40.0-70.0) % Carbon Dioxide 31 H (22-30) mmol/L Creatinine 0.5 L (0.8-1.3) mg/dL Glucose 192 H (75-100) mg/dL POC Glucose 197 H (70-105) mg/dL AST 75 H (5-40) units/L ALT 100 H (7-56) units/L Albumin 3.1 L (3.9-5) g/dL SARS-CoV-2 IgG Ab (NonReactive) 05/27/20 Range/Units 12:13 RBC (3.65-5.03) M/mm3 Hgb (11.8-15.2) gm/dl Hct (35.5-45.6) % MCHC (32-34) % Lymph % (Auto) (13.4-35.0) % [place] % (Auto) (0.0-7.3) % Lymph # (Auto) (1.2-5.4) K/mm3 Seg Neutrophils % (40.0-70.0) % Carbon Dioxide (22-30) mmol/L Creatinine (0.8-1.3) mg/dL Glucose (75-100) mg/dL POC Glucose 237 H (70-105) mg/dL AST (5-40) units/L ALT (7-56) units/L Albumin (3.9-5) g/dL SARS-CoV-2 IgG Ab (NonReactive)
--- NOTE | 2020-05-27 15:54 | Progress Note ---
Assessment and Plan Assessment and plan: he patient is a 54-year-old male present with a chief complaint of shortness of breath. Patient states he came to the emergency department because of "Covid." The patient states for the past 2 weeks he has had shortness of breath weakness and lethargy. Patient admits to fever 100.4 F and a cough occasionally productive of sputum. Patient states he feels dehydrated. The patient states he's never had a Covid test Ed Work up shows WBC 8.7, hemoglobin 18.9, d-dimer 569, sodium 131, potasium 4.1, Cr .06, serum glucose 268, and ferritin 3592 Chest x-ray-shows bilateral Pneumonia Patient seen at bedside, on oxygen per N/c. He admits alcohol use but quit 2 years ago. Reviewed lab, mar, and v/s 05/24: Add insulin for BG control, consult Pulmonary considering Hypoxia. Continue current management and check hgb A1C. 05/26. Remains on oxygen. Influenza sawb today. ID and pulmonlogy following. 05/27. Influenza negative. Father admitted with similar symptoms tested positive for COVID. Awaiting repeat COVID test. Plan (1) Bilateral pneumonia Current Visit: Yes Status: Acute Plan to address problem: COVID-19 negative. repeat COVID-19 test Antibiotics - ceftriaxone and azithromycin ID evaluation appreciated (2) Suspected COVID-19 virus infection Current Visit: Yes Status: Acute Plan to address problem: COVID-19 negative. ID consulted Repeat COVID-19 test as patients father who presented with similar symptoms tested positive (3) Acute respiratory failure with hypoxia Current Visit: Yes Status: Acute Plan to address problem: Likely 2/2 viral pneumonia PRN bronchodilators and oxygen supplementation. Currently on 15 L Pulmonary recs appreciated Encourage prone position and use of incentive spirometer while awake (4) Diabetes mellitus-newly diagnosed Hemoglobin A1c 11.3 Continue Lantus and lispro Diabetic education (5) DVT prophylaxis Current Visit: Yes Status: Acute Plan to address problem: Lovenox (6) Advance care planning Current Visit: Yes Status: Acute Plan to address problem: Full code status History Interval history: Influenza PCR negative On steroids Still on 15L oxygen ID and pulm following Hospitalist Physical - Physical exam Narrative exam: VITAL SIGNS: Reviewed. GENERAL: Awake HEAD: No signs of head trauma. EYES: Pupils are equal. Extraocular motions intact. MOUTH: Oropharynx is normal. NECK: No adenopathy, no JVD. CHEST: Rales posteriorly CARDIAC: normal S1 and S2, without murmurs, gallops, or rubs. ABDOMEN: Soft, non tender and non distended. No rebound or guarding, and no masses palpated. Bowel Sounds normal. MUSCULOSKELETAL: No edema NEUROLOGIC EXAM: Alert and oriented x3. No focal neurologic deficits SKIN: No obvious lesions - Constitutional Vitals: Temp Pulse Resp BP Pulse Ox 97.6 F 80 24 131/83 94 05/27/20 12:15 05/27/20 12:15 05/27/20 12:15 05/27/20 12:15 05/27/20 12:15 HEART Score - HEART Score Troponin: Troponin T < 0.010 ng/mL (0.00-0.029) 05/24/20 17:46 Results - Labs CBC & Chem 7: 05/27/20 08:33 05/27/20 08:33 Labs: Laboratory Last Values WBC 7.7 K/mm3 (4.5-11.0) 05/27/20 08:33 RBC 5.31 M/mm3 (3.65-5.03) H 05/27/20 08:33 Hgb 16.8 gm/dl (11.8-15.2) H 05/27/20 08:33 Hct 48.2 % (35.5-45.6) H 05/27/20 08:33 MCV 91 fl (84-94) 05/27/20 08:33 MCH 32 pg (28-32) 05/27/20 08:33 MCHC 35 % (32-34) H 05/27/20 08:33 RDW 13.3 % (13.2-15.2) 05/27/20 08:33 Plt Count 223 K/mm3 (140-440) 05/27/20 08:33 Lymph % (Auto) 12.7 % (13.4-35.0) L 05/27/20 08:33 [place] % (Auto) 9.6 % (0.0-7.3) H 05/27/20 08:33 Eos % (Auto) 0.3 % (0.0-4.3) 05/27/20 08:33 Baso % (Auto) 0.1 % (0.0-1.8) 05/27/20 08:33 Lymph # (Auto) 1.0 K/mm3 (1.2-5.4) L 05/27/20 08:33 [place] # (Auto) 0.7 K/mm3 (0.0-0.8) 05/27/20 08:33 Eos # (Auto) 0.0 K/mm3 (0.0-0.4) 05/27/20 08:33 Baso # (Auto) 0.0 K/mm3 (0.0-0.1) 05/27/20 08:33 Add Manual Diff Complete 05/24/20 17:46 Seg Neutrophils % 77.3 % (40.0-70.0) H 05/27/20 08:33 Seg Neutrophils # 6.0 K/mm3 (1.8-7.7) 05/27/20 08:33 D-Dimer 418.22 ng/mlDDU (0-234) H 05/25/20 02:55 Sodium 139 mmol/L (137-145) 05/27/20 08:33 Potassium 4.3 mmol/L (3.6-5.0) 05/27/20 08:33 Chloride 99.2 mmol/L (98-107) 05/27/20 08:33 Carbon Dioxide 31 mmol/L (22-30) H 05/27/20 08:33 Anion Gap 13 mmol/L 05/27/20 08:33 BUN 16 mg/dL (9-20) 05/27/20 08:33 Creatinine 0.5 mg/dL (0.8-1.3) L 05/27/20 08:33 Estimated GFR > 60 ml/min 05/27/20 08:33 BUN/Creatinine Ratio 32 % 05/27/20 08:33 Glucose 192 mg/dL (75-100) H 05/27/20 08:33 POC Glucose 237 mg/dL (70-105) H 05/27/20 12:13 Hemoglobin A1c 11.3 % (4-6) H 05/25/20 11:31 Lactic Acid 1.50 mmol/L (0.7-2.0) 05/25/20 02:55 Calcium 8.6 mg/dL (8.4-10.2) 05/27/20 08:33 Ferritin 2913.0 ng/mL (30.0-300.0) H 05/25/20 02:55 Total Bilirubin 0.80 mg/dL (0.1-1.2) 05/27/20 08:33 AST 75 units/L (5-40) H 05/27/20 08:33 ALT 100 units/L (7-56) H 05/27/20 08:33 Alkaline Phosphatase 73 units/L (35-129) 05/27/20 08:33 Lactate Dehydrogenase 396 units/L (91-180) H 05/25/20 02:55 Troponin T < 0.010 ng/mL (0.00-0.029) 05/24/20 17:46 C-Reactive Protein 3.20 mg/dL (0.00-1.30) H 05/25/20 02:55 NT-Pro-B Natriuret Pep 53.57 pg/mL (0-900) 05/24/20 18:14 Total Protein 7.1 g/dL (6.3-8.2) 05/27/20 08:33 Albumin 3.1 g/dL (3.9-5) L 05/27/20 08:33 Albumin/Globulin Ratio 0.8 % 05/27/20 08:33 Procalcitonin 0.14 ng/mL (<0.15) 05/25/20 02:55 Urine Color Ana (Yellow) 05/25/20 05:41 Urine Turbidity Clear (Clear) 05/25/20 05:41 Urine pH 6.0 (5.0-7.0) 05/25/20 05:41 Ur Specific [place] 1.032 (1.003-1.030) H 05/25/20 05:41 Urine Protein 100 mg/dl mg/dL (Negative) 05/25/20 05:41 Urine Glucose (UA) >=500 mg/dL (Negative) 05/25/20 05:41 Urine Ketones 20 mg/dL (Negative) 05/25/20 05:41 Urine Blood Neg (Negative) 05/25/20 05:41 Urine Nitrite Neg (Negative) 05/25/20 05:41 Urine Bilirubin Neg (Negative) 05/25/20 05:41 Urine Urobilinogen 4.0 mg/dL (<2.0) 05/25/20 05:41 Ur Leukocyte Esterase Neg (Negative) 05/25/20 05:41 Urine WBC (Auto) 7.0 /HPF (0.0-6.0) H 05/25/20 05:41 Urine RBC (Auto) 1.0 /HPF (0.0-6.0) 05/25/20 05:41 Urine Bacteria (Auto) 1+ /HPF (Negative) 05/25/20 05:41 Urine Mucus 1+ /HPF 05/25/20 05:41 Coronavirus (PCR) Negative (Negative) 05/25/20 09:45 Influenza A (Rapid) Negative (Negative) 05/26/20 Unknown Influenza B (Rapid) Negative (Negative) 05/26/20 Unknown SARS-CoV-2 IgG Ab Reactive (NonReactive) A 05/26/20 18:47 Microbiology: Microbiology 05/24/20 17:46 Peripheral/Venous Blood Culture - Preliminary NO GROWTH AFTER 48 HOURS 05/24/20 17:46 Peripheral/Venous Blood Culture - Preliminary NO GROWTH AFTER 48 HOURS Barber/IV: Voiding Method Urinal IV Catheter Type [Right Hand] INT / Saline Lock IV Catheter Type [Left INT / Saline Lock Antecubital] Active Medications - Current Medications Current Medications: Generic Name Dose Route Start Last Admin Trade Name Freq PRN Reason Stop Dose Admin Acetaminophen 650 mg 05/24/20 21:35 Acetaminophen 325 Mg Tab PO Q4H PRN Pain MILD(1-3)/Fever >100.5/LEAL Al Hydrox/Mg Hydrox/Simethicone 30 ml 05/24/20 21:35 Alum-Mag Hydroxide-Simethicone [id number]/5ml Oral Liqd 30 Ml PO Q4H PRN Indigestion Albuterol 2.5 mg 05/24/20 21:35 Albuterol 2.5 Mg/3 Ml Nebu IH Q4HRT PRN Shortness Of Breath Alprazolam 0.125 mg 05/24/20 21:35 Alprazolam 0.25 Mg Tab PO Q8H PRN Anxiety Ascorbic Acid 500 mg 05/24/20 22:00 05/27/20 10:26 Ascorbic Acid 500 Mg Tab PO 500 mg BID JEFF Administration Dexamethasone 6 mg 05/26/20 10:00 05/27/20 10:27 Dexamethasone 4 Mg/Ml Vial IV 6 mg DAILY JEFF Administration Dextrose 50 ml 05/25/20 07:13 Dextrose 50% In Water (25gm) 50 Ml Syringe IV Q30MIN PRN Hypoglycemia Protocol Docusate Sodium 100 mg 05/24/20 21:35 Docusate Sodium 100 Mg Cap PO BID PRN Constipation Enoxaparin Sodium 40 mg 05/24/20 22:00 05/27/20 10:26 Enoxaparin 40 Mg/0.4 Ml Inj SUB-Q 40 mg DAILY JEFF Administration Protocol Famotidine 20 mg 05/24/20 22:00 05/27/20 10:26 Famotidine 20 Mg Tab PO 20 mg BID JEFF Administration Hydrophilic Ointment 1 applic 05/24/20 20:35 Lip Therapy Vaseline TP Q2HR PRN Dry Lips Ceftriaxone Sodium 2 gm in 100 mls @ 200 mls/hr 05/25/20 22:00 05/26/20 22:11 Rocephin/Ns 2 Gm/100 Ml IV 200 mls/hr Q24H JEFF Administration Protocol Azithromycin 500 mg/ Sodium 250 mls @ 250 mls/hr 05/25/20 22:00 05/26/20 22:11 Chloride IV 250 mls/hr Q24H [facility] Administration Protocol Insulin Glargine 12 units 05/25/20 22:00 05/26/20 22:03 Insulin Glargine 100 Units/Ml SUB-Q 12 units QHS JEFF Administration Insulin Human Lispro 0 unit 05/25/20 07:30 05/27/20 13:06 Insulin Lispro 100 Unit/Ml Vial 3 Ml SUB-Q 4 unit ACHS JEFF Administration Protocol Magnesium Hydroxide 30 ml 05/24/20 21:35 Magnesium Hydroxide (Mom) Oral Liqd Udc PO Q4H PRN Constipation Metoclopramide HCl 10 mg 05/24/20 21:35 Metoclopramide 10 Mg/2 Ml Inj IV Q6H PRN Nausea And Vomiting Multi-Ingred Cream/Lotion/Oil/Oint 1 applic 05/24/20 20:35 Mineral Oil/Petrolatum, White Ophth Oint 3.5 Gm OU Q4HR PRN Dry Eye(s) Ondansetron HCl 4 mg 05/24/20 21:35 Ondansetron 4 Mg/2 Ml Inj IV Q8H PRN Nausea And Vomiting Sodium Chloride 10 ml 05/24/20 22:00 05/27/20 10:26 Sodium Chloride 0.9% 10 Ml Flush Syringe IV 10 ml BID JEFF Administration Sodium Chloride 10 ml 05/24/20 21:35 Sodium Chloride 0.9% 10 Ml Flush Syringe IV PRN PRN LINE FLUSH Zinc Sulfate 220 mg 05/25/20 10:00 05/27/20 10:26 Zinc Sulfate 220 Mg Cap PO 220 mg QDAY JEFF Administration Zolpidem Tartrate 5 mg 05/24/20 21:35 Zolpidem 5 Mg Tab PO QHS PRN Insomnia Nutrition/Malnutrition Assess - Dietary Evaluation Nutrition/Malnutrition Findings: Nutrition Notes Start: 05/25/20 09:38 Freq: Status: Active Protocol: Document 05/27/20 12:39 NHALL (Rec: 05/27/20 12:45 NHALL [email or web address]) Nutrition Notes Initial or Follow up Assessment Other Pertinent Diagnosis Bilat pneu, r/o COVID-19 Current Diet Regular Labs/Tests A1C 11.3 Pertinent Medications Vit C, Decadron, Lantus, Zinc sulfate Height 6 ft 2 in Weight 95.254 kg [place] Body Weight (kg) 86.36 BMI 26.9 Weight Status Overweight Subjective/Other Information Pt consumed 75% of breakfast yesterday; no other PO intakes documented. No hx of DM. Burn Absent Trauma Absent Minimum of two criteria No #1 Nutrition Diagnosis No nutrition diagnosis at this time As Evidenced by Signs and Symptoms current PO intake at least 75% of meal Is patient on ventilator? No Is Patient Ambulatory and/or Out of Bed Yes REE-([facility]-ambulatory/OOB) [ 2427.477 [id number]] Calculation Used for Recommendations [facility] Additional Notes Pro needs 0.8-1g/k-95g/ day Fluid needs 1ml/kcal Nutrition Intervention Change Diet Order: Continue current diet order; may need to add Consistent CHO modifier for better BG control Goal #1 PO intakes to meet at least 75 % energy and pro needs Goal #2 Improved BG control Anticipated Discharge Needs: None identified at this time Follow-Up By: 06/04/20 Additional Comments F/U: intakes, BG labs, need for diet education (BG control )
[2020-05-27] MEDS: cefTRIAXone/NS 2 GM/100 ML 2 GM/100 ML BAG IV SCH (22:04)
[2020-05-27] MEDS: INSULIN GLARGINE 100 UNITS/ML SUB-Q SCH (22:04)
[2020-05-27] MEDS: AZITHROMYCIN 250 MG TAB PO SCH (22:05)
[2020-05-28 06:37] LABS: Basophils % (Auto) 0.1 % (0.0-1.8); Eosinophils % (Auto) 0.4 % (0.0-4.3); Hematocrit 44.3 % (35.5-45.6); Hemoglobin 15.3 gm/dl (11.8-15.2); Lymphocytes % (Auto) 13.7 % (13.4-35.0); Mean Corpuscular HGB Conc 35 % (32-34); Mean Corpuscular Volume 89 fl (84-94); Monocytes # (Auto) 0.8 K/mm3 (0.0-0.8); Monocytes % (Auto) 10.5 % (0.0-7.3); Platelet Count 202 K/mm3 (140-440); Red Blood Count 4.97 M/mm3 (3.65-5.03); Red Cell Distribution Width 12.8 % (13.2-15.2)
[2020-05-28 07:07] LABS: Alanine Aminotransferase 102 units/L (7-56); Albumin 2.8 g/dL (3.9-5); Blood Urea Nitrogen 13 mg/dL (9-20); Calcium 8.5 mg/dL (8.4-10.2); Hemolysis Index 5
[2020-05-28 07:19] LABS: BUN/Creatinine Ratio 33
[2020-05-28] MEDS: INSULIN LISPRO 100 UNIT/ML VIAL 3 mL SUB-Q SCH ×4 (07:30→23:35)
--- NOTE | 2020-05-28 08:53 | XRay Report ---
CHEST 1 VIEW 05/28/2020 7:34 AM INDICATION / CLINICAL INFORMATION: follow up respiratory failure. COMPARISON: 05/27/2020 FINDINGS: SUPPORT DEVICES: None. HEART / MEDIASTINUM: Stable. LUNGS / PLEURA: Persistent bilateral pulmonary opacities have not significantly changed since prior e xam. No pneumothorax. ADDITIONAL FINDINGS: No significant additional findings. IMPRESSION: 1. No significant interval change since 05/27/2020. Signer Name: Golden Marroquin MD Signed: 05/28/2020 8:49 AM Workstation Name: [id number]
[2020-05-28] MEDS: POTASSIUM CHLORIDE 10 MEQ 10 MEQ/100 ML BAG IV SCH ×4 (09:00→12:00)
--- NOTE | 2020-05-28 09:36 | Progress Note ---
Assessment and Plan 54 y/o male with acute respiratory failure thought secondary to COVID but initial test negative, ab test positive now with send out pending. 1. Wean FiO2 for sats >88% 2. Prone as much as possible during the day and sleep prone at night, expressed the importance of this again, hopeful he will try. 3. Steroids for 10 days 4. Daily net negative fluid balance if possible, will given lasix 20mg IV x1 today. 5. Follow up repeat COVID test 6. needs to get out of bed and at least sit up in chair. Guarded prognosis. Subjective Date of service: 05/28/20 Principal diagnosis: Pneumonia Interval history: Oxygen status is unchanged. Per patient sore all over this morning but stable. I had a long discussion with him at bedside about what happened with his father this morning. Patient admits to not proning at all yesterday. Objective Vital Signs - 12hr 05/28/20 05/28/20 05:29 08:36 Temperature 97.6 F Pulse Rate 67 Respiratory 20 Rate Blood Pressure 116/69 O2 Sat by Pulse 95 95 Oximetry Constitutional: no acute distress, alert Eyes: non-icteric Neck: supple Effort: mildly labored Ascultation: Bilateral: clear (anteriorly) Cardiovascular: regular rate and rhythm (no mrg) Gastrointestinal: normoactive bowel sounds, soft, non-tender, non-distended Integumentary: normal Extremities: no cyanosis, no edema, pink and warm Neurologic: normal mental status, non-focal exam, pupils equal and round, CN II- XII normal Psychiatric: mood appropriate, affect normal CBC and BMP: 05/28/20 04:58 05/28/20 04:58 ABG, PT/INR, D-dimer: PT/INR, D-dimer D-Dimer 270.88 ng/mlDDU (0-234) H 05/28/20 04:58 Abnormal lab findings: Abnormal Labs 05/24/20 05/24/20 05/24/20 17:46 17:46 17:46 RBC 6.03 H Hgb 18.9 H Hct 54.1 H MCHC 35 H RDW Lymph % (Auto) 8.6 L [place] % (Auto) 15.9 H Lymph # (Auto) 0.7 L [place] # (Auto) 1.4 H Seg Neutrophils % 74.9 H D-Dimer 569.00 H Sodium 131 L Potassium Chloride 93.2 L Carbon Dioxide Creatinine 0.6 L Glucose 273 H POC Glucose Hemoglobin A1c Lactic Acid Ferritin Total Bilirubin 1.40 H AST 101 H ALT 78 H Lactate Dehydrogenase 505 H C-Reactive Protein 3.50 H Albumin 3.1 L Ur Specific [place] Urine WBC (Auto) SARS-CoV-2 IgG Ab 05/24/20 05/24/20 05/24/20 17:46 17:46 20:40 RBC Hgb Hct MCHC RDW Lymph % (Auto) [place] % (Auto) Lymph # (Auto) [place] # (Auto) Seg Neutrophils % D-Dimer Sodium Potassium Chloride Carbon Dioxide Creatinine Glucose 268 H POC Glucose Hemoglobin A1c Lactic Acid 2.30 H* Ferritin 3592.0 H Total Bilirubin AST ALT Lactate Dehydrogenase 476 H C-Reactive Protein 3.40 H Albumin Ur Specific [place] Urine WBC (Auto) SARS-CoV-2 IgG Ab 05/25/20 05/25/20 05/25/20 02:55 02:55 02:55 RBC Hgb Hct MCHC RDW Lymph % (Auto) [place] % (Auto) Lymph # (Auto) [place] # (Auto) Seg Neutrophils % D-Dimer 418.22 H Sodium Potassium Chloride Carbon Dioxide Creatinine Glucose 290 H POC Glucose Hemoglobin A1c Lactic Acid Ferritin 2913.0 H Total Bilirubin AST ALT Lactate Dehydrogenase 396 H C-Reactive Protein 3.20 H Albumin Ur Specific [place] Urine WBC (Auto) SARS-CoV-2 IgG Ab 05/25/20 05/25/20 05/25/20 05:41 10:32 11:31 RBC 5.28 H Hgb 16.8 H Hct 47.8 H D MCHC 35 H RDW Lymph % (Auto) 10.9 L [place] % (Auto) 13.6 H Lymph # (Auto) 0.5 L [place] # (Auto) Seg Neutrophils % 75.3 H D-Dimer Sodium Potassium Chloride Carbon Dioxide Creatinine Glucose POC Glucose 309 H Hemoglobin A1c Lactic Acid Ferritin Total Bilirubin AST ALT Lactate Dehydrogenase C-Reactive Protein Albumin Ur Specific [place] 1.032 H Urine WBC (Auto) 7.0 H SARS-CoV-2 IgG Ab 05/25/20 05/25/20 05/25/20 11:31 11:31 17:44 RBC Hgb Hct MCHC RDW Lymph % (Auto) [place] % (Auto) Lymph # (Auto) [place] # (Auto) Seg Neutrophils % D-Dimer Sodium 134 L Potassium Chloride 96.2 L Carbon Dioxide Creatinine 0.5 L Glucose 322 H POC Glucose 370 H Hemoglobin A1c 11.3 H Lactic Acid Ferritin Total Bilirubin AST ALT Lactate Dehydrogenase C-Reactive Protein Albumin Ur Specific [place] Urine WBC (Auto) SARS-CoV-2 IgG Ab 05/25/20 05/26/20 05/26/20 22:22 11:27 16:18 RBC Hgb Hct MCHC RDW Lymph % (Auto) [place] % (Auto) Lymph # (Auto) [place] # (Auto) Seg Neutrophils % D-Dimer Sodium Potassium Chloride Carbon Dioxide Creatinine Glucose POC Glucose 308 H 283 H 313 H Hemoglobin A1c Lactic Acid Ferritin Total Bilirubin AST ALT Lactate Dehydrogenase C-Reactive Protein Albumin Ur Specific [place] Urine WBC (Auto) SARS-CoV-2 IgG Ab 05/26/20 05/26/20 05/27/20 18:47 21:39 08:33 RBC 5.31 H Hgb 16.8 H Hct 48.2 H MCHC 35 H RDW Lymph % (Auto) 12.7 L [place] % (Auto) 9.6 H Lymph # (Auto) 1.0 L [place] # (Auto) Seg Neutrophils % 77.3 H D-Dimer Sodium Potassium Chloride Carbon Dioxide Creatinine Glucose POC Glucose 314 H Hemoglobin A1c Lactic Acid Ferritin Total Bilirubin AST ALT Lactate Dehydrogenase C-Reactive Protein Albumin Ur Specific [place] Urine WBC (Auto) SARS-CoV-2 IgG Ab Reactive A 05/27/20 05/27/20 05/27/20 08:33 08:33 12:13 RBC Hgb Hct MCHC RDW Lymph % (Auto) [place] % (Auto) Lymph # (Auto) [place] # (Auto) Seg Neutrophils % D-Dimer Sodium Potassium Chloride Carbon Dioxide 31 H Creatinine 0.5 L Glucose 192 H POC Glucose 197 H 237 H Hemoglobin A1c Lactic Acid Ferritin Total Bilirubin AST 75 H ALT 100 H Lactate Dehydrogenase C-Reactive Protein Albumin 3.1 L Ur Specific [place] Urine WBC (Auto) SARS-CoV-2 IgG Ab 05/27/20 05/27/20 05/28/20 16:15 21:07 04:58 RBC Hgb 15.3 H Hct MCHC 35 H RDW 12.8 L Lymph % (Auto) [place] % (Auto) 10.5 H Lymph # (Auto) 1.0 L [place] # (Auto) Seg Neutrophils % 75.3 H D-Dimer Sodium Potassium Chloride Carbon Dioxide Creatinine Glucose POC Glucose 348 H 307 H Hemoglobin A1c Lactic Acid Ferritin Total Bilirubin AST ALT Lactate Dehydrogenase C-Reactive Protein Albumin Ur Specific [place] Urine WBC (Auto) SARS-CoV-2 IgG Ab 05/28/20 05/28/20 05/28/20 04:58 04:58 04:58 RBC Hgb Hct MCHC RDW Lymph % (Auto) [place] % (Auto) Lymph # (Auto) [place] # (Auto) Seg Neutrophils % D-Dimer 270.88 H Sodium Potassium 3.5 L Chloride Carbon Dioxide Creatinine 0.4 L Glucose 214 H POC Glucose Hemoglobin A1c Lactic Acid Ferritin 1613.0 H Total Bilirubin AST 54 H ALT 102 H Lactate Dehydrogenase 246 H C-Reactive Protein Albumin 2.8 L Ur Specific [place] Urine WBC (Auto) SARS-CoV-2 IgG Ab 05/28/20 07:44 RBC Hgb Hct MCHC RDW Lymph % (Auto) [place] % (Auto) Lymph # (Auto) [place] # (Auto) Seg Neutrophils % D-Dimer Sodium Potassium Chloride Carbon Dioxide Creatinine Glucose POC Glucose 200 H Hemoglobin A1c Lactic Acid Ferritin Total Bilirubin AST ALT Lactate Dehydrogenase C-Reactive Protein Albumin Ur Specific [place] Urine WBC (Auto) SARS-CoV-2 IgG Ab
[2020-05-28] MEDS ORDERED: FUROSEMIDE 20 MG/2 ML INJ IV SCH (10:00)
[2020-05-28] MEDS ORDERED: INSULIN GLARGINE 100 UNITS/ML SUB-Q SCH ×2 (10:00→22:00)
[2020-05-28] MEDS: FAMOTIDINE 20 MG TAB PO SCH ×2 (10:07→23:34)
[2020-05-28] MEDS: dexAMETHasone 4 MG/ML VIAL IV SCH (10:07)
[2020-05-28] MEDS: ASCORBIC ACID 500 MG TAB PO SCH ×2 (10:07→23:34)
[2020-05-28] MEDS: ENOXAPARIN 40 MG/0.4 ML INJ SUB-Q SCH (10:07)
[2020-05-28] MEDS: ZINC SULFATE 220 MG CAP PO SCH (10:07)
[2020-05-28] MEDS: AZITHROMYCIN 250 MG TAB PO SCH (10:08)
[2020-05-28] MEDS: ACETAMINOPHEN 325 MG TAB PO PRN (12:59)
--- NOTE | 2020-05-28 13:14 | Progress Note ---
Assessment and Plan Assessment and plan: he patient is a 54-year-old male present with a chief complaint of shortness of breath. Patient states he came to the emergency department because of "Covid." The patient states for the past 2 weeks he has had shortness of breath weakness and lethargy. Patient admits to fever 100.4 F and a cough occasionally productive of sputum. Patient states he feels dehydrated. The patient states he's never had a Covid test Ed Work up shows WBC 8.7, hemoglobin 18.9, d-dimer 569, sodium 131, potasium 4.1, Cr .06, serum glucose 268, and ferritin 3592 Chest x-ray-shows bilateral Pneumonia Patient seen at bedside, on oxygen per N/c. He admits alcohol use but quit 2 years ago. Reviewed lab, mar, and v/s 05/24: Add insulin for BG control, consult Pulmonary considering Hypoxia. Continue current management and check hgb A1C. 05/26. Remains on oxygen. Influenza sawb today. ID and pulmonlogy following. 05/27. Influenza negative. Father admitted with similar symptoms tested positive for COVID. Awaiting repeat COVID test. 05/28. Apparently Covid test was not ordered so this has been ordered today. He is oxygen saturation is better-now on 9 L of oxygen. Pulmonology recommendations appreciated. Plan (1) Bilateral pneumonia Current Visit: Yes Status: Acute Plan to address problem: COVID-19 negative. Repeat COVID-19 test ordered Antibiotics - ceftriaxone and azithromycin ID evaluation appreciated (2) Suspected COVID-19 virus infection Current Visit: Yes Status: Acute Plan to address problem: COVID-19 negative. ID consulted Repeat COVID-19 test as patients father who presented with similar symptoms tested positive (3) Acute respiratory failure with hypoxia Current Visit: Yes Status: Acute Plan to address problem: Likely 2/2 viral pneumonia PRN bronchodilators and oxygen supplementation. Currently on 9L Pulmonary recs appreciated Encourage prone position and use of incentive spirometer while awake (4) Diabetes mellitus-newly diagnosed Hemoglobin A1c 11.3 Continue Lantus and lispro Diabetic education (5) DVT prophylaxis Current Visit: Yes Status: Acute Plan to address problem: Lovenox (6) Advance care planning Current Visit: Yes Status: Acute Plan to address problem: Full code status History Interval history: Patient seen and examined at bedside this morning He is doing much better Now on 9 L of oxygen with good saturation Hospitalist Physical - Physical exam Narrative exam: VITAL SIGNS: Reviewed. GENERAL: Awake HEAD: No signs of head trauma. EYES: Pupils are equal. Extraocular motions intact. MOUTH: Oropharynx is normal. NECK: No adenopathy, no JVD. CHEST: Rales posteriorly CARDIAC: normal S1 and S2, without murmurs, gallops, or rubs. ABDOMEN: Soft, non tender and non distended. No rebound or guarding, and no masses palpated. Bowel Sounds normal. MUSCULOSKELETAL: No edema NEUROLOGIC EXAM: Alert and oriented x3. No focal neurologic deficits SKIN: No obvious lesions - Constitutional Vitals: Temp Pulse Resp BP Pulse Ox 97.6 F 67 20 116/69 95 05/28/20 05:29 05/28/20 05:29 05/28/20 05:29 05/28/20 05:29 05/28/20 08:36 HEART Score - HEART Score Troponin: Troponin T < 0.010 ng/mL (0.00-0.029) 05/24/20 17:46 Results - Labs CBC & Chem 7: 05/28/20 04:58 05/28/20 04:58 Labs: Laboratory Last Values WBC 7.4 K/mm3 (4.5-11.0) 05/28/20 04:58 RBC 4.97 M/mm3 (3.65-5.03) 05/28/20 04:58 Hgb 15.3 gm/dl (11.8-15.2) H 05/28/20 04:58 Hct 44.3 % (35.5-45.6) 05/28/20 04:58 MCV 89 fl (84-94) 05/28/20 04:58 MCH 31 pg (28-32) 05/28/20 04:58 MCHC 35 % (32-34) H 05/28/20 04:58 RDW 12.8 % (13.2-15.2) L 05/28/20 04:58 Plt Count 202 K/mm3 (140-440) 05/28/20 04:58 Lymph % (Auto) 13.7 % (13.4-35.0) 05/28/20 04:58 [place] % (Auto) 10.5 % (0.0-7.3) H 05/28/20 04:58 Eos % (Auto) 0.4 % (0.0-4.3) 05/28/20 04:58 Baso % (Auto) 0.1 % (0.0-1.8) 05/28/20 04:58 Lymph # (Auto) 1.0 K/mm3 (1.2-5.4) L 05/28/20 04:58 [place] # (Auto) 0.8 K/mm3 (0.0-0.8) 05/28/20 04:58 Eos # (Auto) 0.0 K/mm3 (0.0-0.4) 05/28/20 04:58 Baso # (Auto) 0.0 K/mm3 (0.0-0.1) 05/28/20 04:58 Add Manual Diff Complete 05/24/20 17:46 Seg Neutrophils % 75.3 % (40.0-70.0) H 05/28/20 04:58 Seg Neutrophils # 5.6 K/mm3 (1.8-7.7) 05/28/20 04:58 D-Dimer 270.88 ng/mlDDU (0-234) H 05/28/20 04:58 Sodium 139 mmol/L (137-145) 05/28/20 04:58 Potassium 3.5 mmol/L (3.6-5.0) L 05/28/20 04:58 Chloride 103.1 mmol/L (98-107) 05/28/20 04:58 Carbon Dioxide 29 mmol/L (22-30) 05/28/20 04:58 Anion Gap 10 mmol/L 05/28/20 04:58 BUN 13 mg/dL (9-20) 05/28/20 04:58 Creatinine 0.4 mg/dL (0.8-1.3) L 05/28/20 04:58 Estimated GFR > 60 ml/min 05/28/20 04:58 BUN/Creatinine Ratio 33 % 05/28/20 04:58 Glucose 214 mg/dL (75-100) H 05/28/20 04:58 POC Glucose 209 mg/dL (70-105) H 05/28/20 12:33 Hemoglobin A1c 11.3 % (4-6) H 05/25/20 11:31 Lactic Acid 1.50 mmol/L (0.7-2.0) 05/25/20 02:55 Calcium 8.5 mg/dL (8.4-10.2) 05/28/20 04:58 Ferritin 1613.0 ng/mL (30.0-300.0) H 05/28/20 04:58 Total Bilirubin 0.70 mg/dL (0.1-1.2) 05/28/20 04:58 AST 54 units/L (5-40) H 05/28/20 04:58 ALT 102 units/L (7-56) H 05/28/20 04:58 Alkaline Phosphatase 67 units/L (35-129) 05/28/20 04:58 Lactate Dehydrogenase 246 units/L (91-180) H 05/28/20 04:58 Troponin T < 0.010 ng/mL (0.00-0.029) 05/24/20 17:46 C-Reactive Protein 0.60 mg/dL (0.00-1.30) 05/28/20 04:58 NT-Pro-B Natriuret Pep 53.57 pg/mL (0-900) 05/24/20 18:14 Total Protein 6.5 g/dL (6.3-8.2) 05/28/20 04:58 Albumin 2.8 g/dL (3.9-5) L 05/28/20 04:58 Albumin/Globulin Ratio 0.8 % 05/28/20 04:58 Procalcitonin 0.14 ng/mL (<0.15) 05/25/20 02:55 Urine Color Ana (Yellow) 05/25/20 05:41 Urine Turbidity Clear (Clear) 05/25/20 05:41 Urine pH 6.0 (5.0-7.0) 05/25/20 05:41 Ur Specific [place] 1.032 (1.003-1.030) H 05/25/20 05:41 Urine Protein 100 mg/dl mg/dL (Negative) 05/25/20 05:41 Urine Glucose (UA) >=500 mg/dL (Negative) 05/25/20 05:41 Urine Ketones 20 mg/dL (Negative) 05/25/20 05:41 Urine Blood Neg (Negative) 05/25/20 05:41 Urine Nitrite Neg (Negative) 05/25/20 05:41 Urine Bilirubin Neg (Negative) 05/25/20 05:41 Urine Urobilinogen 4.0 mg/dL (<2.0) 05/25/20 05:41 Ur Leukocyte Esterase Neg (Negative) 05/25/20 05:41 Urine WBC (Auto) 7.0 /HPF (0.0-6.0) H 05/25/20 05:41 Urine RBC (Auto) 1.0 /HPF (0.0-6.0) 05/25/20 05:41 Urine Bacteria (Auto) 1+ /HPF (Negative) 05/25/20 05:41 Urine Mucus 1+ /HPF 05/25/20 05:41 Coronavirus (PCR) Negative (Negative) 05/25/20 09:45 Influenza A (Rapid) Negative (Negative) 05/26/20 Unknown Influenza B (Rapid) Negative (Negative) 05/26/20 Unknown SARS-CoV-2 IgG Ab Reactive (NonReactive) A 05/26/20 18:47 Microbiology: Microbiology 05/24/20 17:46 Peripheral/Venous Blood Culture - Preliminary NO GROWTH AFTER 72 HOURS 05/24/20 17:46 Peripheral/Venous Blood Culture - Preliminary NO GROWTH AFTER 72 HOURS Barber/IV: Voiding Method Urinal IV Catheter Type [Right Hand] INT / Saline Lock IV Catheter Type [Left INT / Saline Lock Antecubital] Active Medications - Current Medications Current Medications: Generic Name Dose Route Start Last Admin Trade Name Freq PRN Reason Stop Dose Admin Acetaminophen 650 mg 05/24/20 21:35 05/28/20 12:59 Acetaminophen 325 Mg Tab PO 650 mg Q4H PRN Administration Pain MILD(1-3)/Fever >100.5/LEAL Al Hydrox/Mg Hydrox/Simethicone 30 ml 05/24/20 21:35 Alum-Mag Hydroxide-Simethicone [id number]/5ml Oral Liqd 30 Ml PO Q4H PRN Indigestion Albuterol 2.5 mg 05/24/20 21:35 Albuterol 2.5 Mg/3 Ml Nebu IH Q4HRT PRN Shortness Of Breath Alprazolam 0.125 mg 05/24/20 21:35 Alprazolam 0.25 Mg Tab PO Q8H PRN Anxiety Ascorbic Acid 500 mg 05/24/20 22:00 05/28/20 10:07 Ascorbic Acid 500 Mg Tab PO 500 mg BID JEFF Administration Azithromycin 500 mg 05/27/20 22:00 05/28/20 10:08 Azithromycin 250 Mg Tab PO 500 mg QDAY JEFF Administration Dexamethasone 6 mg 05/26/20 10:00 05/28/20 10:07 Dexamethasone 4 Mg/Ml Vial IV 6 mg DAILY JEFF Administration Dextrose 50 ml 05/25/20 07:13 Dextrose 50% In Water (25gm) 50 Ml Syringe IV Q30MIN PRN Hypoglycemia Protocol Docusate Sodium 100 mg 05/24/20 21:35 Docusate Sodium 100 Mg Cap PO BID PRN Constipation Enoxaparin Sodium 40 mg 05/24/20 22:00 05/28/20 10:07 Enoxaparin 40 Mg/0.4 Ml Inj SUB-Q 40 mg DAILY JEFF Administration Protocol Famotidine 20 mg 05/24/20 22:00 05/28/20 10:07 Famotidine 20 Mg Tab PO 20 mg BID JEFF Administration Hydrophilic Ointment 1 applic 05/24/20 20:35 Lip Therapy Vaseline TP Q2HR PRN Dry Lips Ceftriaxone Sodium 2 gm in 100 mls @ 200 mls/hr 05/25/20 22:00 05/27/20 22:04 Rocephin/Ns 2 Gm/100 Ml IV 200 mls/hr Q24H JEFF Administration Protocol Insulin Glargine 16 units 05/28/20 10:00 05/28/20 10:11 Insulin Glargine 100 Units/Ml SUB-Q 16 units BID JEFF Administration Insulin Human Lispro 0 unit 05/25/20 07:30 05/28/20 11:30 Insulin Lispro 100 Unit/Ml Vial 3 Ml SUB-Q 4 unit ACHS JEFF Administration Protocol Magnesium Hydroxide 30 ml 05/24/20 21:35 Magnesium Hydroxide (Mom) Oral Liqd Udc PO Q4H PRN Constipation Metoclopramide HCl 10 mg 05/24/20 21:35 Metoclopramide 10 Mg/2 Ml Inj IV Q6H PRN Nausea And Vomiting Multi-Ingred Cream/Lotion/Oil/Oint 1 applic 05/24/20 20:35 Mineral Oil/Petrolatum, White Ophth Oint 3.5 Gm OU Q4HR PRN Dry Eye(s) Ondansetron HCl 4 mg 05/24/20 21:35 Ondansetron 4 Mg/2 Ml Inj IV Q8H PRN Nausea And Vomiting Potassium Chloride 40 meq 05/28/20 13:11 Potassium Chloride Er 20 Meq Tab PO 05/28/20 13:12 ONCE ONE Sodium Chloride 10 ml 05/24/20 22:00 05/28/20 10:07 Sodium Chloride 0.9% 10 Ml Flush Syringe IV 10 ml BID JEFF Administration Sodium Chloride 10 ml 05/24/20 21:35 Sodium Chloride 0.9% 10 Ml Flush Syringe IV PRN PRN LINE FLUSH Zinc Sulfate 220 mg 05/25/20 10:00 05/28/20 10:07 Zinc Sulfate 220 Mg Cap PO 220 mg QDAY JEFF Administration Zolpidem Tartrate 5 mg 05/24/20 21:35 Zolpidem 5 Mg Tab PO QHS PRN Insomnia Nutrition/Malnutrition Assess - Dietary Evaluation Nutrition/Malnutrition Findings: Nutrition Notes Start: 05/25/20 09:38 Freq: Status: Active Protocol: Document 05/27/20 12:39 ACE (Rec: 05/27/20 12:45 [facility]MERLY [facility], [facility]1983 [id number]) Nutrition Notes Initial or Follow up Assessment Other Pertinent Diagnosis Bilat pneu, r/o COVID-19 Current Diet Regular Labs/Tests A1C 11.3 Pertinent Medications Vit C, Decadron, Lantus, Zinc sulfate Height 6 ft 2 in Weight 95.254 kg [place] Body Weight (kg) 86.36 BMI 26.9 Weight Status Overweight Subjective/Other Information Pt consumed 75% of breakfast yesterday; no other PO intakes documented. No hx of DM. Burn Absent Trauma Absent Minimum of two criteria No #1 Nutrition Diagnosis No nutrition diagnosis at this time As Evidenced by Signs and Symptoms current PO intake at least 75% of meal Is patient on ventilator? No Is Patient Ambulatory and/or Out of Bed Yes REE-([place] Jeor-ambulatory/OOB) [ [id number] [id number]] Calculation Used for Recommendations [place] Jeor Additional Notes Pro needs 0.8-1g/k-95g/ day Fluid needs 1ml/kcal Nutrition Intervention Change Diet Order: Continue current diet order; may need to add Consistent CHO modifier for better BG control Goal #1 PO intakes to meet at least 75 % energy and pro needs Goal #2 Improved BG control Anticipated Discharge Needs: None identified at this time Follow-Up By: 06/04/20 Additional Comments F/U: intakes, BG labs, need for diet education (BG control )
--- NOTE | 2020-05-28 13:17 | Progress Note ---
Assessment and Plan Cultures: SARS-CoV-2 PCR negative but IgG positive Influenza antigen negative Blood cultures no growth Assessment: 54 years old male with history of polycythemia, admitted on 05/24/2020 secondary to 2-week history of generalized malaise, weakness, cough and shortness of breath associated with lethargy: #Sepsis: likely due to bilateral pneumonia. Urinalysis negative. #Bilateral pneumonia: COVID-19 PCR negative but IgG positive. Inflammatory markers are elevated. ?Late COVID-19 infection/cytokine storm v/s community- acquired pneumonia. Procalcitonin is low. #Acute hypoxemic respiratory failure: Secondary to bilateral pneumonia. #Transaminitis: Also may be related to COVID-19 Recommendations: -Continue steroids, complete at least 10 days -Continue empiric ceftriaxone, azithromycin, complete 5 days -Monitor inflammatory markers for COVID-19. D-dimer has trended down -Prolonged symptoms, COVID-19 PCR negative, IgG positive, unlikely to benefit from remdesivir Fernando Johnson MD, FACP [facility] ([facility] O: [phone] F: [phone] Subjective Date of service: 05/28/20 Principal diagnosis: Pneumonia Interval history: No fever. Remains on high flow. Objective - Exam Narrative Exam: Physical Exam (reviewed in chart to minimize risk of transmission) Constitutional: deferred Head, Ears, Nose: deferred Eyes: deferred Neck: deferred Oral: deferred Cardiovascular: deferred Respiratory: deferred GI: deferred Musculoskeletal: deferred Skin: deferred Hem/Lymphatic: deferred Psych: deferred Neurological: deferred - Constitutional Vitals: Vital Signs Temp Pulse Resp BP Pulse Ox 97.6 F 67 20 116/69 95 05/28/20 05:29 05/28/20 05:29 05/28/20 05:29 05/28/20 05:29 05/28/20 08:36 Temperature -Last 24 Hours Temperature 97.6 F Temperature 97.8 F Temperature 97.8 F - Labs CBC & Chem 7: 05/28/20 04:58 05/28/20 04:58 Labs: Abnormal lab results 05/27/20 05/27/20 05/28/20 Range/Units 16:15 21:07 04:58 Hgb 15.3 H (11.8-15.2) gm/dl MCHC 35 H (32-34) % RDW 12.8 L (13.2-15.2) % [place] % (Auto) 10.5 H (0.0-7.3) % Lymph # (Auto) 1.0 L (1.2-5.4) K/mm3 Seg Neutrophils % 75.3 H (40.0-70.0) % D-Dimer (0-234) ng/mlDDU Potassium (3.6-5.0) mmol/L Creatinine (0.8-1.3) mg/dL Glucose (75-100) mg/dL POC Glucose 348 H 307 H (70-105) mg/dL Ferritin (30.0-300.0) ng/mL AST (5-40) units/L ALT (7-56) units/L Lactate Dehydrogenase (91-180) units/L Albumin (3.9-5) g/dL 05/28/20 05/28/20 05/28/20 Range/Units 04:58 04:58 04:58 Hgb (11.8-15.2) gm/dl MCHC (32-34) % RDW (13.2-15.2) % [place] % (Auto) (0.0-7.3) % Lymph # (Auto) (1.2-5.4) K/mm3 Seg Neutrophils % (40.0-70.0) % D-Dimer 270.88 H (0-234) ng/mlDDU Potassium 3.5 L (3.6-5.0) mmol/L Creatinine 0.4 L (0.8-1.3) mg/dL Glucose 214 H (75-100) mg/dL POC Glucose (70-105) mg/dL Ferritin 1613.0 H (30.0-300.0) ng/mL AST 54 H (5-40) units/L ALT 102 H (7-56) units/L Lactate Dehydrogenase 246 H (91-180) units/L Albumin 2.8 L (3.9-5) g/dL 05/28/20 05/28/20 Range/Units 07:44 12:33 Hgb (11.8-15.2) gm/dl MCHC (32-34) % RDW (13.2-15.2) % [place] % (Auto) (0.0-7.3) % Lymph # (Auto) (1.2-5.4) K/mm3 Seg Neutrophils % (40.0-70.0) % D-Dimer (0-234) ng/mlDDU Potassium (3.6-5.0) mmol/L Creatinine (0.8-1.3) mg/dL Glucose (75-100) mg/dL POC Glucose 200 H 209 H (70-105) mg/dL Ferritin (30.0-300.0) ng/mL AST (5-40) units/L ALT (7-56) units/L Lactate Dehydrogenase (91-180) units/L Albumin (3.9-5) g/dL
[2020-05-28] MEDS ORDERED: POTASSIUM CHLORIDE ER 20 MEQ TAB PO NR (13:30)
[2020-05-28] MEDS: cefTRIAXone/NS 2 GM/100 ML 2 GM/100 ML BAG IV SCH (23:33)
[2020-05-29 06:42] LABS: Blood Urea Nitrogen 10 mg/dL (9-20); Calcium 8.6 mg/dL (8.4-10.2); Hemolysis Index 4
[2020-05-29 06:43] LABS: BUN/Creatinine Ratio 20
[2020-05-29] MEDS: ACETAMINOPHEN 325 MG TAB PO PRN (06:43)
--- NOTE | 2020-05-29 07:56 | Progress Note ---
Assessment and Plan 54 y/o male with acute respiratory failure thought secondary to COVID but initial test negative, ab test positive now with send out pending. 1. Wean FiO2 for sats >88% 2. Prone as much as possible during the day and sleep prone at night, expressed the importance of this again, hopeful he will try. Still is not proning. 3. Steroids for 10 days 4. Daily net negative fluid balance if possible, will give lasix 20mg IV x1 again today given his good response on yesterday. 5. Follow up repeat COVID test, still not back yet. 6. needs to get out of bed and at least sit up in chair. Guarded prognosis. Subjective Date of service: 05/29/20 Principal diagnosis: Pneumonia Interval history: Down to 8 liters, not proning. Tolerated lasix therapy on yesterday with good output. Labs stable Objective Vital Signs - 12hr 05/28/20 05/29/20 05/29/20 22:25 03:06 06:27 Temperature 97.8 F 97.7 F Pulse Rate 74 72 Pulse Rate [ 78 Apical] Respiratory 18 20 Rate Respiratory Rate [Head] Blood Pressure 113/81 Blood Pressure 139/87 [Left] O2 Sat by Pulse 94 99 95 Oximetry 05/29/20 05/29/20 06:43 06:48 Temperature Pulse Rate Pulse Rate [ Apical] Respiratory 16 Rate Respiratory 16 Rate [Head] Blood Pressure Blood Pressure [Left] O2 Sat by Pulse Oximetry Constitutional: no acute distress, alert Eyes: non-icteric Neck: supple Effort: mildly labored Ascultation: Bilateral: clear (anteriorly) Cardiovascular: regular rate and rhythm (no mrg) Gastrointestinal: normoactive bowel sounds, soft, non-tender, non-distended Integumentary: normal Extremities: no cyanosis, no edema, pink and warm Neurologic: normal mental status, non-focal exam, pupils equal and round, CN II- XII normal Psychiatric: mood appropriate, affect normal CBC and BMP: 05/28/20 04:58 05/29/20 05:24 ABG, PT/INR, D-dimer: PT/INR, D-dimer D-Dimer 270.88 ng/mlDDU (0-234) H 05/28/20 04:58 Abnormal lab findings: Abnormal Labs 05/24/20 05/24/20 05/24/20 17:46 17:46 17:46 RBC 6.03 H Hgb 18.9 H Hct 54.1 H MCHC 35 H RDW Lymph % (Auto) 8.6 L [place] % (Auto) 15.9 H Lymph # (Auto) 0.7 L [place] # (Auto) 1.4 H Seg Neutrophils % 74.9 H D-Dimer 569.00 H Sodium 131 L Potassium Chloride 93.2 L Carbon Dioxide Creatinine 0.6 L Glucose 273 H POC Glucose Hemoglobin A1c Lactic Acid Ferritin Total Bilirubin 1.40 H AST 101 H ALT 78 H Lactate Dehydrogenase 505 H C-Reactive Protein 3.50 H Albumin 3.1 L Ur Specific [place] Urine WBC (Auto) SARS-CoV-2 IgG Ab 05/24/20 05/24/20 05/24/20 17:46 17:46 20:40 RBC Hgb Hct MCHC RDW Lymph % (Auto) [place] % (Auto) Lymph # (Auto) [place] # (Auto) Seg Neutrophils % D-Dimer Sodium Potassium Chloride Carbon Dioxide Creatinine Glucose 268 H POC Glucose Hemoglobin A1c Lactic Acid 2.30 H* Ferritin 3592.0 H Total Bilirubin AST ALT Lactate Dehydrogenase 476 H C-Reactive Protein 3.40 H Albumin Ur Specific [place] Urine WBC (Auto) SARS-CoV-2 IgG Ab 05/25/20 05/25/20 05/25/20 02:55 02:55 02:55 RBC Hgb Hct MCHC RDW Lymph % (Auto) [place] % (Auto) Lymph # (Auto) [place] # (Auto) Seg Neutrophils % D-Dimer 418.22 H Sodium Potassium Chloride Carbon Dioxide Creatinine Glucose 290 H POC Glucose Hemoglobin A1c Lactic Acid Ferritin 2913.0 H Total Bilirubin AST ALT Lactate Dehydrogenase 396 H C-Reactive Protein 3.20 H Albumin Ur Specific [place] Urine WBC (Auto) SARS-CoV-2 IgG Ab 05/25/20 05/25/20 05/25/20 05:41 10:32 11:31 RBC 5.28 H Hgb 16.8 H Hct 47.8 H D MCHC 35 H RDW Lymph % (Auto) 10.9 L [place] % (Auto) 13.6 H Lymph # (Auto) 0.5 L [place] # (Auto) Seg Neutrophils % 75.3 H D-Dimer Sodium Potassium Chloride Carbon Dioxide Creatinine Glucose POC Glucose 309 H Hemoglobin A1c Lactic Acid Ferritin Total Bilirubin AST ALT Lactate Dehydrogenase C-Reactive Protein Albumin Ur Specific [place] 1.032 H Urine WBC (Auto) 7.0 H SARS-CoV-2 IgG Ab 05/25/20 05/25/20 05/25/20 11:31 11:31 17:44 RBC Hgb Hct MCHC RDW Lymph % (Auto) [place] % (Auto) Lymph # (Auto) [place] # (Auto) Seg Neutrophils % D-Dimer Sodium 134 L Potassium Chloride 96.2 L Carbon Dioxide Creatinine 0.5 L Glucose 322 H POC Glucose 370 H Hemoglobin A1c 11.3 H Lactic Acid Ferritin Total Bilirubin AST ALT Lactate Dehydrogenase C-Reactive Protein Albumin Ur Specific [place] Urine WBC (Auto) SARS-CoV-2 IgG Ab 05/25/20 05/26/20 05/26/20 22:22 11:27 16:18 RBC Hgb Hct MCHC RDW Lymph % (Auto) [place] % (Auto) Lymph # (Auto) [place] # (Auto) Seg Neutrophils % D-Dimer Sodium Potassium Chloride Carbon Dioxide Creatinine Glucose POC Glucose 308 H 283 H 313 H Hemoglobin A1c Lactic Acid Ferritin Total Bilirubin AST ALT Lactate Dehydrogenase C-Reactive Protein Albumin Ur Specific [place] Urine WBC (Auto) SARS-CoV-2 IgG Ab 05/26/20 05/26/20 05/27/20 18:47 21:39 08:33 RBC 5.31 H Hgb 16.8 H Hct 48.2 H MCHC 35 H RDW Lymph % (Auto) 12.7 L [place] % (Auto) 9.6 H Lymph # (Auto) 1.0 L [place] # (Auto) Seg Neutrophils % 77.3 H D-Dimer Sodium Potassium Chloride Carbon Dioxide Creatinine Glucose POC Glucose 314 H Hemoglobin A1c Lactic Acid Ferritin Total Bilirubin AST ALT Lactate Dehydrogenase C-Reactive Protein Albumin Ur Specific [place] Urine WBC (Auto) SARS-CoV-2 IgG Ab Reactive A 05/27/20 05/27/20 05/27/20 08:33 08:33 12:13 RBC Hgb Hct MCHC RDW Lymph % (Auto) [place] % (Auto) Lymph # (Auto) [place] # (Auto) Seg Neutrophils % D-Dimer Sodium Potassium Chloride Carbon Dioxide 31 H Creatinine 0.5 L Glucose 192 H POC Glucose 197 H 237 H Hemoglobin A1c Lactic Acid Ferritin Total Bilirubin AST 75 H ALT 100 H Lactate Dehydrogenase C-Reactive Protein Albumin 3.1 L Ur Specific [place] Urine WBC (Auto) SARS-CoV-2 IgG Ab 12/05/27/20 05/28/20 16:15 21:07 04:58 RBC Hgb 15.3 H Hct MCHC 35 H RDW 12.8 L Lymph % (Auto) [place] % (Auto) 10.5 H Lymph # (Auto) 1.0 L [place] # (Auto) Seg Neutrophils % 75.3 H D-Dimer Sodium Potassium Chloride Carbon Dioxide Creatinine Glucose POC Glucose 348 H 307 H Hemoglobin A1c Lactic Acid Ferritin Total Bilirubin AST ALT Lactate Dehydrogenase C-Reactive Protein Albumin Ur Specific [place] Urine WBC (Auto) SARS-CoV-2 IgG Ab 05/28/20 05/28/20 05/28/20 04:58 04:58 04:58 RBC Hgb Hct MCHC RDW Lymph % (Auto) [place] % (Auto) Lymph # (Auto) [place] # (Auto) Seg Neutrophils % D-Dimer 270.88 H Sodium Potassium 3.5 L Chloride Carbon Dioxide Creatinine 0.4 L Glucose 214 H POC Glucose Hemoglobin A1c Lactic Acid Ferritin 1613.0 H Total Bilirubin AST 54 H ALT 102 H Lactate Dehydrogenase 246 H C-Reactive Protein Albumin 2.8 L Ur Specific [place] Urine WBC (Auto) SARS-CoV-2 IgG Ab 05/28/20 05/28/20 05/28/20 07:44 12:33 15:50 RBC Hgb Hct MCHC RDW Lymph % (Auto) [place] % (Auto) Lymph # (Auto) [place] # (Auto) Seg Neutrophils % D-Dimer Sodium Potassium Chloride Carbon Dioxide Creatinine Glucose POC Glucose 200 H 209 H 367 H Hemoglobin A1c Lactic Acid Ferritin Total Bilirubin AST ALT Lactate Dehydrogenase C-Reactive Protein Albumin Ur Specific [place] Urine WBC (Auto) SARS-CoV-2 IgG Ab 05/28/20 05/29/20 05/29/20 22:22 05:24 07:32 RBC Hgb Hct MCHC RDW Lymph % (Auto) [place] % (Auto) Lymph # (Auto) [place] # (Auto) Seg Neutrophils % D-Dimer Sodium 135 L Potassium Chloride Carbon Dioxide Creatinine 0.5 L Glucose 254 H POC Glucose 238 H 213 H Hemoglobin A1c Lactic Acid Ferritin Total Bilirubin AST ALT Lactate Dehydrogenase C-Reactive Protein Albumin Ur Specific [place] Urine WBC (Auto) SARS-CoV-2 IgG Ab
[2020-05-29] MEDS ORDERED: FUROSEMIDE 20 MG/2 ML INJ IV NR (08:00)
[2020-05-29] MEDS: INSULIN LISPRO 100 UNIT/ML VIAL 3 mL SUB-Q SCH ×3 (08:00→20:44)
--- NOTE | 2020-05-29 09:04 | XRay Report ---
XR chest 1V ap INDICATION / CLINICAL INFORMATION: follow up respiratory failure. COMPARISON: 05/28/2020 FINDINGS: SUPPORT DEVICES: None HEART /PULMONARY VASCULATURE: Unchanged. LUNGS / PLEURA: Minimally improved bilateral airspace opacities. No sizable pleural effusion. No pneu mothorax. ADDITIONAL FINDINGS: No significant additional findings. IMPRESSION: Mild interval improvement in bilateral opacities. Signer Name: Len Singleton MD Signed: 05/29/2020 9:00 AM Workstation Name: [id number]
--- NOTE | 2020-05-29 11:33 | Progress Note ---
Assessment and Plan Assessment and plan: he patient is a 54-year-old male present with a chief complaint of shortness of breath. Patient states he came to the emergency department because of "Covid." The patient states for the past 2 weeks he has had shortness of breath weakness and lethargy. Patient admits to fever 100.4 F and a cough occasionally productive of sputum. Patient states he feels dehydrated. The patient states he's never had a Covid test Ed Work up shows WBC 8.7, hemoglobin 18.9, d-dimer 569, sodium 131, potasium 4.1, Cr .06, serum glucose 268, and ferritin 3592 Chest x-ray-shows bilateral Pneumonia Patient seen at bedside, on oxygen per N/c. He admits alcohol use but quit 2 years ago. Reviewed lab, mar, and v/s 05/24: Add insulin for BG control, consult Pulmonary considering Hypoxia. Continue current management and check hgb A1C. 05/26. Remains on oxygen. Influenza sawb today. ID and pulmonlogy following. 05/27. Influenza negative. Father admitted with similar symptoms tested positive for COVID. Awaiting repeat COVID test. 05/28. Apparently Covid test was not ordered so this has been ordered today. He is oxygen saturation is better-now on 9 L of oxygen. Pulmonology recommendations appreciated. 05/29. Feels better. Now on 8L. Getting lasix IV. Plan (1) Bilateral pneumonia Current Visit: Yes Status: Acute Plan to address problem: COVID-19 negative. Repeat COVID-19 test ordered Antibiotics - ceftriaxone and azithromycin ID evaluation appreciated (2) Suspected COVID-19 virus infection Current Visit: Yes Status: Acute Plan to address problem: COVID-19 negative. ID consulted Repeat COVID-19 test as patients father who presented with similar symptoms tested positive (3) Acute respiratory failure with hypoxia Current Visit: Yes Status: Acute Plan to address problem: Likely 2/2 viral pneumonia PRN bronchodilators and oxygen supplementation. Currently on 8L Pulmonary recs appreciated Encourage prone position and use of incentive spirometer while awake (4) Diabetes mellitus-newly diagnosed Hemoglobin A1c 11.3 Continue Lantus and lispro. Increased lantus to 24 units BID Diabetic education (5) DVT prophylaxis Current Visit: Yes Status: Acute Plan to address problem: Lovenox (6) Advance care planning Current Visit: Yes Status: Acute Plan to address problem: Full code status History Interval history: Patient seen and examined at bedside this morning He is doing much better Now on 9 L of oxygen with good saturation Hospitalist Physical - Physical exam Narrative exam: VITAL SIGNS: Reviewed. GENERAL: Awake HEAD: No signs of head trauma. EYES: Pupils are equal. Extraocular motions intact. MOUTH: Oropharynx is normal. NECK: No adenopathy, no JVD. CHEST: Rales improved CARDIAC: normal S1 and S2, without murmurs, gallops, or rubs. ABDOMEN: Soft, non tender and non distended. No rebound or guarding, and no masses palpated. Bowel Sounds normal. MUSCULOSKELETAL: No edema NEUROLOGIC EXAM: Alert and oriented x3. No focal neurologic deficits SKIN: No obvious lesions - Constitutional Vitals: Temp Pulse Resp BP Pulse Ox 97.7 F 72 16 113/81 95 05/29/20 06:27 05/29/20 06:27 05/29/20 06:48 05/29/20 06:27 05/29/20 06:27 HEART Score - HEART Score Troponin: Troponin T < 0.010 ng/mL (0.00-0.029) 05/24/20 17:46 Results - Labs CBC & Chem 7: 05/28/20 04:58 05/29/20 05:24 Labs: Laboratory Last Values WBC 7.4 K/mm3 (4.5-11.0) 05/28/20 04:58 RBC 4.97 M/mm3 (3.65-5.03) 05/28/20 04:58 Hgb 15.3 gm/dl (11.8-15.2) H 05/28/20 04:58 Hct 44.3 % (35.5-45.6) 05/28/20 04:58 MCV 89 fl (84-94) 05/28/20 04:58 MCH 31 pg (28-32) 05/28/20 04:58 MCHC 35 % (32-34) H 05/28/20 04:58 RDW 12.8 % (13.2-15.2) L 05/28/20 04:58 Plt Count 202 K/mm3 (140-440) 05/28/20 04:58 Lymph % (Auto) 13.7 % (13.4-35.0) 05/28/20 04:58 [place] % (Auto) 10.5 % (0.0-7.3) H 05/28/20 04:58 Eos % (Auto) 0.4 % (0.0-4.3) 05/28/20 04:58 Baso % (Auto) 0.1 % (0.0-1.8) 05/28/20 04:58 Lymph # (Auto) 1.0 K/mm3 (1.2-5.4) L 05/28/20 04:58 [place] # (Auto) 0.8 K/mm3 (0.0-0.8) 05/28/20 04:58 Eos # (Auto) 0.0 K/mm3 (0.0-0.4) 05/28/20 04:58 Baso # (Auto) 0.0 K/mm3 (0.0-0.1) 05/28/20 04:58 Add Manual Diff Complete 05/24/20 17:46 Seg Neutrophils % 75.3 % (40.0-70.0) H 05/28/20 04:58 Seg Neutrophils # 5.6 K/mm3 (1.8-7.7) 05/28/20 04:58 D-Dimer 270.88 ng/mlDDU (0-234) H 05/28/20 04:58 Sodium 135 mmol/L (137-145) L 05/29/20 05:24 Potassium 4.0 mmol/L (3.6-5.0) 05/29/20 05:24 Chloride 98.4 mmol/L (98-107) 05/29/20 05:24 Carbon Dioxide 25 mmol/L (22-30) 05/29/20 05:24 Anion Gap 16 mmol/L 05/29/20 05:24 BUN 10 mg/dL (9-20) 05/29/20 05:24 Creatinine 0.5 mg/dL (0.8-1.3) L 05/29/20 05:24 Estimated GFR > 60 ml/min 05/29/20 05:24 BUN/Creatinine Ratio 20 % 05/29/20 05:24 Glucose 254 mg/dL (75-100) H 05/29/20 05:24 POC Glucose 213 mg/dL (70-105) H 05/29/20 07:32 Hemoglobin A1c 11.3 % (4-6) H 05/25/20 11:31 Lactic Acid 1.50 mmol/L (0.7-2.0) 05/25/20 02:55 Calcium 8.6 mg/dL (8.4-10.2) 05/29/20 05:24 Ferritin 1613.0 ng/mL (30.0-300.0) H 05/28/20 04:58 Total Bilirubin 0.70 mg/dL (0.1-1.2) 05/28/20 04:58 AST 54 units/L (5-40) H 05/28/20 04:58 ALT 102 units/L (7-56) H 05/28/20 04:58 Alkaline Phosphatase 67 units/L (35-129) 05/28/20 04:58 Lactate Dehydrogenase 246 units/L (91-180) H 05/28/20 04:58 Troponin T < 0.010 ng/mL (0.00-0.029) 05/24/20 17:46 C-Reactive Protein 0.60 mg/dL (0.00-1.30) 05/28/20 04:58 NT-Pro-B Natriuret Pep 53.57 pg/mL (0-900) 05/24/20 18:14 Total Protein 6.5 g/dL (6.3-8.2) 05/28/20 04:58 Albumin 2.8 g/dL (3.9-5) L 05/28/20 04:58 Albumin/Globulin Ratio 0.8 % 05/28/20 04:58 Procalcitonin 0.14 ng/mL (<0.15) 05/25/20 02:55 Urine Color Ana (Yellow) 05/25/20 05:41 Urine Turbidity Clear (Clear) 05/25/20 05:41 Urine pH 6.0 (5.0-7.0) 05/25/20 05:41 Ur Specific [place] 1.032 (1.003-1.030) H 05/25/20 05:41 Urine Protein 100 mg/dl mg/dL (Negative) 05/25/20 05:41 Urine Glucose (UA) >=500 mg/dL (Negative) 05/25/20 05:41 Urine Ketones 20 mg/dL (Negative) 05/25/20 05:41 Urine Blood Neg (Negative) 05/25/20 05:41 Urine Nitrite Neg (Negative) 05/25/20 05:41 Urine Bilirubin Neg (Negative) 05/25/20 05:41 Urine Urobilinogen 4.0 mg/dL (<2.0) 05/25/20 05:41 Ur Leukocyte Esterase Neg (Negative) 05/25/20 05:41 Urine WBC (Auto) 7.0 /HPF (0.0-6.0) H 05/25/20 05:41 Urine RBC (Auto) 1.0 /HPF (0.0-6.0) 05/25/20 05:41 Urine Bacteria (Auto) 1+ /HPF (Negative) 05/25/20 05:41 Urine Mucus 1+ /HPF 05/25/20 05:41 Coronavirus (PCR) Negative (Negative) 05/25/20 09:45 Influenza A (Rapid) Negative (Negative) 05/26/20 Unknown Influenza B (Rapid) Negative (Negative) 05/26/20 Unknown SARS-CoV-2 IgG Ab Reactive (NonReactive) A 05/26/20 18:47 Microbiology: Microbiology 05/24/20 17:46 Peripheral/Venous Blood Culture - Preliminary NO GROWTH AFTER 4 DAYS 05/24/20 17:46 Peripheral/Venous Blood Culture - Preliminary NO GROWTH AFTER 4 DAYS Barber/IV: Voiding Method Urinal IV Catheter Type [Right Hand] INT / Saline Lock IV Catheter Type [Left INT / Saline Lock Antecubital] Active Medications - Current Medications Current Medications: Generic Name Dose Route Start Last Admin Trade Name Freq PRN Reason Stop Dose Admin Acetaminophen 650 mg 05/24/20 21:35 05/29/20 06:43 Acetaminophen 325 Mg Tab PO 650 mg Q4H PRN Administration Pain MILD(1-3)/Fever >100.5/LEAL Al Hydrox/Mg Hydrox/Simethicone 30 ml 05/24/20 21:35 Alum-Mag Hydroxide-Simethicone [id number]/5ml Oral Liqd 30 Ml PO Q4H PRN Indigestion Albuterol 2.5 mg 05/24/20 21:35 Albuterol 2.5 Mg/3 Ml Nebu IH Q4HRT PRN Shortness Of Breath Alprazolam 0.125 mg 05/24/20 21:35 Alprazolam 0.25 Mg Tab PO Q8H PRN Anxiety Ascorbic Acid 500 mg 05/24/20 22:00 05/28/20 23:34 Ascorbic Acid 500 Mg Tab PO 500 mg BID JEFF Administration Dexamethasone 6 mg 05/26/20 10:00 05/28/20 10:07 Dexamethasone 4 Mg/Ml Vial IV 06/03/20 10:01 6 mg DAILY JEFF Administration Dextrose 50 ml 05/25/20 07:13 Dextrose 50% In Water (25gm) 50 Ml Syringe IV Q30MIN PRN Hypoglycemia Protocol Docusate Sodium 100 mg 05/24/20 21:35 Docusate Sodium 100 Mg Cap PO BID PRN Constipation Enoxaparin Sodium 40 mg 05/24/20 22:00 05/28/20 10:07 Enoxaparin 40 Mg/0.4 Ml Inj SUB-Q 40 mg DAILY JEFF Administration Protocol Famotidine 20 mg 05/24/20 22:00 05/28/20 23:34 Famotidine 20 Mg Tab PO 20 mg BID JEFF Administration Furosemide 20 mg 05/29/20 08:00 Furosemide 20 Mg/2 Ml Inj IV 05/29/20 12:00 ONCE@0800 NR Hydrophilic Ointment 1 applic 05/24/20 20:35 Lip Therapy Vaseline TP Q2HR PRN Dry Lips Insulin Glargine 20 units 05/28/20 22:00 05/28/20 23:32 Insulin Glargine 100 Units/Ml SUB-Q 20 units BID JEFF Administration Insulin Human Lispro 0 unit 05/25/20 07:30 05/28/20 23:35 Insulin Lispro 100 Unit/Ml Vial 3 Ml SUB-Q 4 unit ACHS JEFF Administration Protocol Magnesium Hydroxide 30 ml 05/24/20 21:35 Magnesium Hydroxide (Mom) Oral Liqd Udc PO Q4H PRN Constipation Metoclopramide HCl 10 mg 05/24/20 21:35 Metoclopramide 10 Mg/2 Ml Inj IV Q6H PRN Nausea And Vomiting Multi-Ingred Cream/Lotion/Oil/Oint 1 applic 05/24/20 20:35 Mineral Oil/Petrolatum, White Ophth Oint 3.5 Gm OU Q4HR PRN Dry Eye(s) Ondansetron HCl 4 mg 05/24/20 21:35 Ondansetron 4 Mg/2 Ml Inj IV Q8H PRN Nausea And Vomiting Sodium Chloride 10 ml 05/24/20 22:00 05/28/20 23:34 Sodium Chloride 0.9% 10 Ml Flush Syringe IV 10 ml BID JEFF Administration Sodium Chloride 10 ml 05/24/20 21:35 Sodium Chloride 0.9% 10 Ml Flush Syringe IV PRN PRN LINE FLUSH Zinc Sulfate 220 mg 05/25/20 10:00 05/28/20 10:07 Zinc Sulfate 220 Mg Cap PO 220 mg QDAY JEFF Administration Zolpidem Tartrate 5 mg 05/24/20 21:35 Zolpidem 5 Mg Tab PO QHS PRN Insomnia Nutrition/Malnutrition Assess - Dietary Evaluation Nutrition/Malnutrition Findings: Nutrition Notes Start: 05/25/20 09:38 Freq: Status: Active Protocol: Document 05/27/20 12:39 ACE (Rec: 05/27/20 12:45 ACE [id number]) Nutrition Notes Initial or Follow up Assessment Other Pertinent Diagnosis Bilat pneu, r/o COVID-19 Current Diet Regular Labs/Tests A1C 11.3 Pertinent Medications Vit C, Decadron, Lantus, Zinc sulfate Height 6 ft 2 in Weight 95.254 kg [place] Body Weight (kg) 86.36 BMI 26.9 Weight Status Overweight Subjective/Other Information Pt consumed 75% of breakfast yesterday; no other PO intakes documented. No hx of DM. Burn Absent Trauma Absent Minimum of two criteria No #1 Nutrition Diagnosis No nutrition diagnosis at this time As Evidenced by Signs and Symptoms current PO intake at least 75% of meal Is patient on ventilator? No Is Patient Ambulatory and/or Out of Bed Yes REE-([facility]-ambulatory/OOB) [ [id number] [id number]] Calculation Used for Recommendations [facility] Additional Notes Pro needs 0.8-1g/k-95g/ day Fluid needs 1ml/kcal Nutrition Intervention Change Diet Order: Continue current diet order; may need to add Consistent CHO modifier for better BG control Goal #1 PO intakes to meet at least 75 % energy and pro needs Goal #2 Improved BG control Anticipated Discharge Needs: None identified at this time Follow-Up By: 06/04/20 Additional Comments F/U: intakes, BG labs, need for diet education (BG control )
[2020-05-29] MEDS: ENOXAPARIN 40 MG/0.4 ML INJ SUB-Q SCH (14:10)
[2020-05-29] MEDS: ZINC SULFATE 220 MG CAP PO SCH (14:10)
[2020-05-29] MEDS: ASCORBIC ACID 500 MG TAB PO SCH ×2 (14:10→23:59)
[2020-05-29] MEDS: dexAMETHasone 4 MG/ML VIAL IV SCH (14:11)
[2020-05-29] MEDS: FAMOTIDINE 20 MG TAB PO SCH (14:11)
[2020-05-29] MEDS: INSULIN GLARGINE 100 UNITS/ML SUB-Q SCH (14:14)
--- NOTE | 2020-05-29 14:43 | Progress Note ---
Assessment and Plan Cultures: SARS-CoV-2 PCR negative but IgG positive Influenza antigen negative Blood cultures no growth Assessment: 54 years old male with history of polycythemia, admitted on 05/24/2020 secondary to 2-week history of generalized malaise, weakness, cough and shortness of breath associated with lethargy: #Sepsis: likely due to bilateral pneumonia. Urinalysis negative. #Bilateral pneumonia: COVID-19 PCR negative but IgG positive. Inflammatory markers are elevated. ?Late COVID-19 infection/cytokine storm v/s community- acquired pneumonia. Procalcitonin is low. #Acute hypoxemic respiratory failure: Secondary to bilateral pneumonia. #Transaminitis: Also may be related to COVID-19 Recommendations: -Continue steroids, complete at least 10 days -Completed Ceftriaxone + Azithromycin -Monitor inflammatory markers for COVID-19. D-dimer has trended down -Prolonged symptoms, COVID-19 PCR negative, IgG positive, unlikely to benefit from remdesivir Fernando Johnson MD, FACP [facility] ([facility] O: [phone] F: [phone] Subjective Date of service: 05/29/20 Principal diagnosis: Pneumonia Interval history: No fever. Remains on oxygen. Objective - Exam Narrative Exam: Physical Exam (reviewed in chart to minimize risk of transmission) Constitutional: deferred Head, Ears, Nose: deferred Eyes: deferred Neck: deferred Oral: deferred Cardiovascular: deferred Respiratory: deferred GI: deferred Musculoskeletal: deferred Skin: deferred Hem/Lymphatic: deferred Psych: deferred Neurological: deferred - Constitutional Vitals: Vital Signs Temp Pulse Resp BP Pulse Ox 97.9 F 65 22 128/79 94 05/29/20 11:36 05/29/20 11:36 05/29/20 11:36 05/29/20 11:36 05/29/20 12:00 Temperature -Last 24 Hours Temperature 97.9 F Temperature 97.7 F Temperature 97.8 F Temperature 96.0 F - Labs CBC & Chem 7: 05/28/20 04:58 05/29/20 05:24 Labs: Abnormal lab results 05/28/20 05/28/20 05/29/20 Range/Units 15:50 22:22 05:24 Sodium 135 L (137-145) mmol/L Creatinine 0.5 L (0.8-1.3) mg/dL Glucose 254 H (75-100) mg/dL POC Glucose 367 H 238 H (70-105) mg/dL 05/29/20 05/29/20 Range/Units 07:32 11:36 Sodium (137-145) mmol/L Creatinine (0.8-1.3) mg/dL Glucose (75-100) mg/dL POC Glucose 213 H 291 H (70-105) mg/dL
[2020-05-30] MEDS: ZOLPIDEM 5 MG TAB PO PRN
[2020-05-30] MEDS: INSULIN LISPRO 100 UNIT/ML VIAL 3 mL SUB-Q SCH ×5 (00:01→23:37)
[2020-05-30] MEDS: INSULIN GLARGINE 100 UNITS/ML SUB-Q SCH ×3 (00:15→23:36)
--- NOTE | 2020-05-30 08:41 | XRay Report ---
CHEST 1 VIEW 05/30/2020 7:33 AM INDICATION / CLINICAL INFORMATION: follow up respiratory failure. COMPARISON: 05/29/2020 FINDINGS: SUPPORT DEVICES: None. HEART / MEDIASTINUM: No significant abnormality. LUNGS / PLEURA: Patchy moderate bilateral airspace disease characteristic for pneumonia, unchanged No pneumothorax. ADDITIONAL FINDINGS: No significant additional findings. IMPRESSION: 1. Stable bilateral pneumonia Signer Name: Eran Ramirez MD Signed: 05/30/2020 8:37 AM Workstation Name: [employer]
--- NOTE | 2020-05-30 10:22 | Progress Note ---
Assessment and Plan Assessment and plan: 54-year-old male present with a chief complaint of shortness of breath. Patient states he came to the emergency department because of "Covid." The patient states for the past 2 weeks he has had shortness of breath weakness and lethargy. Patient admits to fever 100.4 F and a cough occasionally productive of sputum. Patient states he feels dehydrated. The patient states he's never had a Covid test Ed Work up shows WBC 8.7, hemoglobin 18.9, d-dimer 569, sodium 131, potasium 4.1, Cr .06, serum g lucose 268, and ferritin 3592 Chest x-ray-shows bilateral Pneumonia Patient seen at bedside, on oxygen per N/c. He admits alcohol use but quit 2 years ago. Reviewed lab, mar, and v/s 05/24: Add insulin for BG control, consult Pulmonary considering Hypoxia. Continue current management and check hgb A1C. 05/26. Remains on oxygen. Influenza sawb today. ID and pulmonlogy following. 05/27. Influenza negative. Father admitted with similar symptoms tested positive for COVID. Awaiting repeat COVID test. 05/28. Apparently Covid test was not ordered so this has been ordered today. He is oxygen saturation is better-now on 9 L of oxygen. Pulmonology recommendations appreciated. 05/29. Feels better. Now on 8L. Getting lasix IV. 05/30. Repeat COVID-19 testing negative. Patient is now on 5 L of oxygen with sats in the mid 90s. Awaiting chem 7. Plan (1) Bilateral pneumonia Current Visit: Yes Status: Acute Plan to address problem: COVID-19 negative. Repeat COVID-19 test still negative Antibiotics - ceftriaxone and azithromycin ID evaluation appreciated (2) Suspected COVID-19 virus infection-negative (3) Acute respiratory failure with hypoxia Current Visit: Yes Status: Acute Plan to address problem: Likely 2/2 viral pneumonia PRN bronchodilators and oxygen supplementation. Now on 5 L of oxygen Pulmonary recs appreciated Incentive spirometer (4) Diabetes mellitus-newly diagnosed Hemoglobin A1c 11.3 Continue Lantus and lispro. Increased lantus to 26 units BID Diabetic education (5) DVT prophylaxis Current Visit: Yes Status: Acute Plan to address problem: Lovenox (6) Advance care planning Current Visit: Yes Status: Acute Plan to address problem: Full code status History Interval history: Patient seen and examined at bedside this morning COVID-19 test repeat is still negative Patient's oxygenation is improved-now on 5 L of oxygen with sats in the mid 90s. Hospitalist Physical - Physical exam Narrative exam: VITAL SIGNS: Reviewed. GENERAL: Awake HEAD: No signs of head trauma. EYES: Pupils are equal. Extraocular motions intact. MOUTH: Oropharynx is normal. NECK: No adenopathy, no JVD. CHEST: Rales improved CARDIAC: normal S1 and S2, without murmurs, gallops, or rubs. ABDOMEN: Soft, non tender and non distended. No rebound or guarding, and no masses palpated. Bowel Sounds normal. MUSCULOSKELETAL: No edema NEUROLOGIC EXAM: Alert and oriented x3. No focal neurologic deficits SKIN: No obvious lesions - Constitutional Vitals: Temp Pulse Resp BP Pulse Ox 97.9 F 72 0 L 105/68 92 05/29/20 21:25 05/30/20 04:21 05/30/20 04:21 05/30/20 04:21 05/30/20 10:00 HEART Score - HEART Score Troponin: Troponin T < 0.010 ng/mL (0.00-0.029) 05/24/20 17:46 Results - Labs CBC & Chem 7: 05/28/20 04:58 05/29/20 05:24 Labs: Laboratory Last Values WBC 7.4 K/mm3 (4.5-11.0) 05/28/20 04:58 RBC 4.97 M/mm3 (3.65-5.03) 05/28/20 04:58 Hgb 15.3 gm/dl (11.8-15.2) H 05/28/20 04:58 Hct 44.3 % (35.5-45.6) 05/28/20 04:58 MCV 89 fl (84-94) 05/28/20 04:58 MCH 31 pg (28-32) 05/28/20 04:58 MCHC 35 % (32-34) H 05/28/20 04:58 RDW 12.8 % (13.2-15.2) L 05/28/20 04:58 Plt Count 202 K/mm3 (140-440) 05/28/20 04:58 Lymph % (Auto) 13.7 % (13.4-35.0) 05/28/20 04:58 [place] % (Auto) 10.5 % (0.0-7.3) H 05/28/20 04:58 Eos % (Auto) 0.4 % (0.0-4.3) 05/28/20 04:58 Baso % (Auto) 0.1 % (0.0-1.8) 05/28/20 04:58 Lymph # (Auto) 1.0 K/mm3 (1.2-5.4) L 05/28/20 04:58 [place] # (Auto) 0.8 K/mm3 (0.0-0.8) 05/28/20 04:58 Eos # (Auto) 0.0 K/mm3 (0.0-0.4) 05/28/20 04:58 Baso # (Auto) 0.0 K/mm3 (0.0-0.1) 05/28/20 04:58 Add Manual Diff Complete 05/24/20 17:46 Seg Neutrophils % 75.3 % (40.0-70.0) H 05/28/20 04:58 Seg Neutrophils # 5.6 K/mm3 (1.8-7.7) 05/28/20 04:58 D-Dimer 270.88 ng/mlDDU (0-234) H 05/28/20 04:58 Sodium 135 mmol/L (137-145) L 05/29/20 05:24 Potassium 4.0 mmol/L (3.6-5.0) 05/29/20 05:24 Chloride 98.4 mmol/L (98-107) 05/29/20 05:24 Carbon Dioxide 25 mmol/L (22-30) 05/29/20 05:24 Anion Gap 16 mmol/L 05/29/20 05:24 BUN 10 mg/dL (9-20) 05/29/20 05:24 Creatinine 0.5 mg/dL (0.8-1.3) L 05/29/20 05:24 Estimated GFR > 60 ml/min 05/29/20 05:24 BUN/Creatinine Ratio 20 % 05/29/20 05:24 Glucose 254 mg/dL (75-100) H 05/29/20 05:24 POC Glucose 323 mg/dL (70-105) H 05/30/20 08:07 Hemoglobin A1c 11.3 % (4-6) H 05/25/20 11:31 Lactic Acid 1.50 mmol/L (0.7-2.0) 05/25/20 02:55 Calcium 8.6 mg/dL (8.4-10.2) 05/29/20 05:24 Ferritin 1613.0 ng/mL (30.0-300.0) H 05/28/20 04:58 Total Bilirubin 0.70 mg/dL (0.1-1.2) 05/28/20 04:58 AST 54 units/L (5-40) H 05/28/20 04:58 ALT 102 units/L (7-56) H 05/28/20 04:58 Alkaline Phosphatase 67 units/L (35-129) 05/28/20 04:58 Lactate Dehydrogenase 246 units/L (91-180) H 05/28/20 04:58 Troponin T < 0.010 ng/mL (0.00-0.029) 05/24/20 17:46 C-Reactive Protein 0.60 mg/dL (0.00-1.30) 05/28/20 04:58 NT-Pro-B Natriuret Pep 53.57 pg/mL (0-900) 05/24/20 18:14 Total Protein 6.5 g/dL (6.3-8.2) 05/28/20 04:58 Albumin 2.8 g/dL (3.9-5) L 05/28/20 04:58 Albumin/Globulin Ratio 0.8 % 05/28/20 04:58 Procalcitonin 0.14 ng/mL (<0.15) 05/25/20 02:55 Urine Color Ana (Yellow) 05/25/20 05:41 Urine Turbidity Clear (Clear) 05/25/20 05:41 Urine pH 6.0 (5.0-7.0) 05/25/20 05:41 Ur Specific [place] 1.032 (1.003-1.030) H 05/25/20 05:41 Urine Protein 100 mg/dl mg/dL (Negative) 05/25/20 05:41 Urine Glucose (UA) >=500 mg/dL (Negative) 05/25/20 05:41 Urine Ketones 20 mg/dL (Negative) 05/25/20 05:41 Urine Blood Neg (Negative) 05/25/20 05:41 Urine Nitrite Neg (Negative) 05/25/20 05:41 Urine Bilirubin Neg (Negative) 05/25/20 05:41 Urine Urobilinogen 4.0 mg/dL (<2.0) 05/25/20 05:41 Ur Leukocyte Esterase Neg (Negative) 05/25/20 05:41 Urine WBC (Auto) 7.0 /HPF (0.0-6.0) H 05/25/20 05:41 Urine RBC (Auto) 1.0 /HPF (0.0-6.0) 05/25/20 05:41 Urine Bacteria (Auto) 1+ /HPF (Negative) 05/25/20 05:41 Urine Mucus 1+ /HPF 05/25/20 05:41 Coronavirus (PCR) Negative (Negative) 05/29/20 10:38 Influenza A (Rapid) Negative (Negative) 05/26/20 Unknown Influenza B (Rapid) Negative (Negative) 05/26/20 Unknown SARS-CoV-2 IgG Ab Reactive (NonReactive) A 05/26/20 18:47 Microbiology: Microbiology 05/24/20 17:46 Peripheral/Venous Blood Culture - Final NO GROWTH AFTER 5 DAYS 05/24/20 17:46 Peripheral/Venous Blood Culture - Final NO GROWTH AFTER 5 DAYS Barber/IV: Voiding Method Urinal IV Catheter Type [Right Hand] INT / Saline Lock IV Catheter Type [Left INT / Saline Lock Antecubital] Active Medications - Current Medications Current Medications: Generic Name Dose Route Start Last Admin Trade Name Freq PRN Reason Stop Dose Admin Acetaminophen 650 mg 05/24/20 21:35 05/29/20 06:43 Acetaminophen 325 Mg Tab PO 650 mg Q4H PRN Administration Pain MILD(1-3)/Fever >100.5/LEAL Al Hydrox/Mg Hydrox/Simethicone 30 ml 05/24/20 21:35 Alum-Mag Hydroxide-Simethicone 406-017-15ph/5ml Oral Liqd 30 Ml PO Q4H PRN Indigestion Albuterol 2.5 mg 05/24/20 21:35 Albuterol 2.5 Mg/3 Ml Nebu IH Q4HRT PRN Shortness Of Breath Alprazolam 0.125 mg 05/24/20 21:35 05/29/20 23:59 Alprazolam 0.25 Mg Tab PO 0.125 mg Q8H PRN Administration Anxiety Ascorbic Acid 500 mg 05/24/20 22:00 05/29/20 23:59 Ascorbic Acid 500 Mg Tab PO 500 mg BID JEFF Administration Dexamethasone 6 mg 05/26/20 10:00 05/29/20 14:11 Dexamethasone 4 Mg/Ml Vial IV 06/03/20 10:01 6 mg DAILY JEFF Administration Dextrose 50 ml 05/25/20 07:13 Dextrose 50% In Water (25gm) 50 Ml Syringe IV Q30MIN PRN Hypoglycemia Protocol Docusate Sodium 100 mg 05/24/20 21:35 Docusate Sodium 100 Mg Cap PO BID PRN Constipation Enoxaparin Sodium 40 mg 05/24/20 22:00 05/29/20 14:10 Enoxaparin 40 Mg/0.4 Ml Inj SUB-Q 40 mg DAILY JEFF Administration Protocol Famotidine 20 mg 05/24/20 22:00 05/30/20 00:00 Famotidine 20 Mg Tab PO 20 mg BID [facility] Administration Hydrophilic Ointment 1 applic 05/24/20 20:35 Lip Therapy Vaseline TP Q2HR PRN Dry Lips Insulin Glargine 28 units 05/30/20 10:00 Insulin Glargine 100 Units/Ml SUB-Q BID [facility] Insulin Human Lispro 0 unit 05/25/20 07:30 05/30/20 00:01 Insulin Lispro 100 Unit/Ml Vial 3 Ml SUB-Q 6 unit ACHS JEFF Administration Protocol Magnesium Hydroxide 30 ml 05/24/20 21:35 Magnesium Hydroxide (Mom) Oral Liqd Udc PO Q4H PRN Constipation Metoclopramide HCl 10 mg 05/24/20 21:35 Metoclopramide 10 Mg/2 Ml Inj IV Q6H PRN Nausea And Vomiting Multi-Ingred Cream/Lotion/Oil/Oint 1 applic 05/24/20 20:35 Mineral Oil/Petrolatum, White Ophth Oint 3.5 Gm OU Q4HR PRN Dry Eye(s) Ondansetron HCl 4 mg 05/24/20 21:35 Ondansetron 4 Mg/2 Ml Inj IV Q8H PRN Nausea And Vomiting Sodium Chloride 10 ml 05/24/20 22:00 05/30/20 00:05 Sodium Chloride 0.9% 10 Ml Flush Syringe IV 10 ml BID JEFF Administration Sodium Chloride 10 ml 05/24/20 21:35 Sodium Chloride 0.9% 10 Ml Flush Syringe IV PRN PRN LINE FLUSH Zinc Sulfate 220 mg 05/25/20 10:00 05/29/20 14:10 Zinc Sulfate 220 Mg Cap PO 220 mg QDAY JEFF Administration Zolpidem Tartrate 5 mg 05/24/20 21:35 05/30/20 00:00 Zolpidem 5 Mg Tab PO 5 mg QHS PRN Administration Insomnia Nutrition/Malnutrition Assess - Dietary Evaluation Nutrition/Malnutrition Findings: Nutrition Notes Start: 05/25/20 09:38 Freq: Status: Active Protocol: Document 05/27/20 12:39 ACE (Rec: 05/27/20 12:45 ACE [id number]) Nutrition Notes Initial or Follow up Assessment Other Pertinent Diagnosis Bilat pneu, r/o COVID-19 Current Diet Regular Labs/Tests A1C 11.3 Pertinent Medications Vit C, Decadron, Lantus, Zinc sulfate Height 6 ft 2 in Weight 95.254 kg [place] Body Weight (kg) 86.36 BMI 26.9 Weight Status Overweight Subjective/Other Information Pt consumed 75% of breakfast yesterday; no other PO intakes documented. No hx of DM. Burn Absent Trauma Absent Minimum of two criteria No #1 Nutrition Diagnosis No nutrition diagnosis at this time As Evidenced by Signs and Symptoms current PO intake at least 75% of meal Is patient on ventilator? No Is Patient Ambulatory and/or Out of Bed Yes REE-([facility]-ambulatory/OOB) [ [id number] [id number]] Calculation Used for Recommendations [facility] Additional Notes Pro needs 0.8-1g/k-95g/ day Fluid needs 1ml/kcal Nutrition Intervention Change Diet Order: Continue current diet order; may need to add Consistent CHO modifier for better BG control Goal #1 PO intakes to meet at least 75 % energy and pro needs Goal #2 Improved BG control Anticipated Discharge Needs: None identified at this time Follow-Up By: 06/04/20 Additional Comments F/U: intakes, BG labs, need for diet education (BG control )
[2020-05-30] MEDS: FAMOTIDINE 20 MG TAB PO SCH ×3 (10:28→23:36)
[2020-05-30] MEDS: ENOXAPARIN 40 MG/0.4 ML INJ SUB-Q SCH (10:28)
[2020-05-30] MEDS: ASCORBIC ACID 500 MG TAB PO SCH ×2 (10:28→23:37)
[2020-05-30] MEDS: dexAMETHasone 4 MG/ML VIAL IV SCH (10:28)
[2020-05-30] MEDS: ZINC SULFATE 220 MG CAP PO SCH (10:34)
--- NOTE | 2020-05-30 12:12 | Progress Note ---
Assessment and Plan Cultures: SARS-CoV-2 PCR negative but IgG positive Influenza antigen negative Blood cultures no growth Assessment: 54 years old male with history of polycythemia, admitted on 05/24/2020 secondary to 2-week history of generalized malaise, weakness, cough and shortness of breath associated with lethargy: #Sepsis: likely due to bilateral pneumonia. #Bilateral pneumonia: COVID-19 PCR negative but IgG positive. Inflammatory markers are elevated. ?Late COVID-19 infection/cytokine storm v/s community- acquired pneumonia. Procalcitonin is low but completed empiric abx course #Acute hypoxemic respiratory failure: Secondary to bilateral pneumonia. #Transaminitis: Also may be related to COVID-19 Recommendations: -Continue steroids, complete at least 10 days -Monitor inflammatory markers for COVID-19. D-dimer has trended down -Prolonged symptoms, COVID-19 PCR negative, IgG positive, unlikely to benefit from remdesivir -get ambulatory sats and arrange for home oxygen ID will sign off. Please call with questions. Fernando Johnson MD, FACP [facility] ([facility] O: [phone] F: [phone] Subjective Date of service: 05/30/20 Principal diagnosis: Pneumonia Interval history: No fever. Remains on oxygen. Continues on steroids. Objective - Exam Narrative Exam: Physical Exam (reviewed in chart to minimize risk of transmission) Constitutional: deferred Head, Ears, Nose: deferred Eyes: deferred Neck: deferred Oral: deferred Cardiovascular: deferred Respiratory: deferred GI: deferred Musculoskeletal: deferred Skin: deferred Hem/Lymphatic: deferred Psych: deferred Neurological: deferred - Constitutional Vitals: Vital Signs Temp Pulse Resp BP Pulse Ox 97.9 F 72 0 L 105/68 92 05/29/20 21:25 05/30/20 04:21 05/30/20 04:21 05/30/20 04:21 05/30/20 10:00 Temperature -Last 24 Hours Temperature 97.9 F Temperature 97.9 F - Labs CBC & Chem 7: 05/28/20 04:58 05/29/20 05:24 Labs: Abnormal lab results 05/29/20 05/29/20 05/30/20 Range/Units 17:26 22:50 08:07 POC Glucose 249 H 254 H 323 H (70-105) mg/dL 05/30/20 Range/Units 11:55 POC Glucose 285 H (70-105) mg/dL
--- NOTE | 2020-05-30 13:47 | Progress Note ---
Assessment and Plan 54 y/o male with acute respiratory failure thought secondary to COVID but initial test negative, ab test positive now with send out pending. 1. Wean FiO2 for sats >88% 2. Prone as much as possible during the day and sleep prone at night, expressed the importance of this again, hopeful he will try. Still is not proning. 3. Steroids for 10 days 4. Daily net negative fluid balance if possible. Hold on lasix today. 5. Send out COVID negative as well. 6. needs to get out of bed and at least sit up in chair. Guarded prognosis. Subjective Date of service: 05/30/20 Principal diagnosis: Pneumonia Interval history: down to 4 liters at rest. Good sats. Objective Vital Signs - 12hr 05/30/20 05/30/20 05/30/20 04:21 10:00 11:11 Temperature 97.6 F Pulse Rate 72 76 Respiratory 0 L 20 Rate Blood Pressure 105/68 130/82 O2 Sat by Pulse 96 92 96 Oximetry Constitutional: no acute distress, alert Eyes: non-icteric Neck: supple Effort: mildly labored Ascultation: Bilateral: clear (anteriorly) Cardiovascular: regular rate and rhythm (no mrg) Gastrointestinal: normoactive bowel sounds, soft, non-tender, non-distended Integumentary: normal Extremities: no cyanosis, no edema, pink and warm Neurologic: normal mental status, non-focal exam, pupils equal and round, CN II- XII normal Psychiatric: mood appropriate, affect normal CBC and BMP: 05/28/20 04:58 05/29/20 05:24 ABG, PT/INR, D-dimer: PT/INR, D-dimer D-Dimer 270.88 ng/mlDDU (0-234) H 05/28/20 04:58 Abnormal lab findings: Abnormal Labs 05/24/20 05/24/20 05/24/20 17:46 17:46 17:46 RBC 6.03 H Hgb 18.9 H Hct 54.1 H MCHC 35 H RDW Lymph % (Auto) 8.6 L [place] % (Auto) 15.9 H Lymph # (Auto) 0.7 L [place] # (Auto) 1.4 H Seg Neutrophils % 74.9 H D-Dimer 569.00 H Sodium 131 L Potassium Chloride 93.2 L Carbon Dioxide Creatinine 0.6 L Glucose 273 H POC Glucose Hemoglobin A1c Lactic Acid Ferritin Total Bilirubin 1.40 H AST 101 H ALT 78 H Lactate Dehydrogenase 505 H C-Reactive Protein 3.50 H Albumin 3.1 L Ur Specific [place] Urine WBC (Auto) SARS-CoV-2 IgG Ab 05/24/20 05/24/20 05/24/20 17:46 17:46 20:40 RBC Hgb Hct MCHC RDW Lymph % (Auto) [place] % (Auto) Lymph # (Auto) Snyder # (Auto) Seg Neutrophils % D-Dimer Sodium Potassium Chloride Carbon Dioxide Creatinine Glucose 268 H POC Glucose Hemoglobin A1c Lactic Acid 2.30 H* Ferritin 3592.0 H Total Bilirubin AST ALT Lactate Dehydrogenase 476 H C-Reactive Protein 3.40 H Albumin Ur Specific [place] Urine WBC (Auto) SARS-CoV-2 IgG Ab 05/25/20 05/25/20 05/25/20 02:55 02:55 02:55 RBC Hgb Hct MCHC RDW Lymph % (Auto) [place] % (Auto) Lymph # (Auto) [place] # (Auto) Seg Neutrophils % D-Dimer 418.22 H Sodium Potassium Chloride Carbon Dioxide Creatinine Glucose 290 H POC Glucose Hemoglobin A1c Lactic Acid Ferritin 2913.0 H Total Bilirubin AST ALT Lactate Dehydrogenase 396 H C-Reactive Protein 3.20 H Albumin Ur Specific [place] Urine WBC (Auto) SARS-CoV-2 IgG Ab 05/25/20 05/25/20 05/25/20 05:41 10:32 11:31 RBC 5.28 H Hgb 16.8 H Hct 47.8 H D MCHC 35 H RDW Lymph % (Auto) 10.9 L [place] % (Auto) 13.6 H Lymph # (Auto) 0.5 L [place] # (Auto) Seg Neutrophils % 75.3 H D-Dimer Sodium Potassium Chloride Carbon Dioxide Creatinine Glucose POC Glucose 309 H Hemoglobin A1c Lactic Acid Ferritin Total Bilirubin AST ALT Lactate Dehydrogenase C-Reactive Protein Albumin Ur Specific [place] 1.032 H Urine WBC (Auto) 7.0 H SARS-CoV-2 IgG Ab 05/25/20 05/25/20 05/25/20 11:31 11:31 17:44 RBC Hgb Hct MCHC RDW Lymph % (Auto) [place] % (Auto) Lymph # (Auto) [place] # (Auto) Seg Neutrophils % D-Dimer Sodium 134 L Potassium Chloride 96.2 L Carbon Dioxide Creatinine 0.5 L Glucose 322 H POC Glucose 370 H Hemoglobin A1c 11.3 H Lactic Acid Ferritin Total Bilirubin AST ALT Lactate Dehydrogenase C-Reactive Protein Albumin Ur Specific [place] Urine WBC (Auto) SARS-CoV-2 IgG Ab 05/25/20 05/26/20 05/26/20 22:22 11:27 16:18 RBC Hgb Hct MCHC RDW Lymph % (Auto) [place] % (Auto) Lymph # (Auto) [place] # (Auto) Seg Neutrophils % D-Dimer Sodium Potassium Chloride Carbon Dioxide Creatinine Glucose POC Glucose 308 H 283 H 313 H Hemoglobin A1c Lactic Acid Ferritin Total Bilirubin AST ALT Lactate Dehydrogenase C-Reactive Protein Albumin Ur Specific [place] Urine WBC (Auto) SARS-CoV-2 IgG Ab 05/26/20 05/26/20 05/27/20 18:47 21:39 08:33 RBC 5.31 H Hgb 16.8 H Hct 48.2 H MCHC 35 H RDW Lymph % (Auto) 12.7 L [place] % (Auto) 9.6 H Lymph # (Auto) 1.0 L [place] # (Auto) Seg Neutrophils % 77.3 H D-Dimer Sodium Potassium Chloride Carbon Dioxide Creatinine Glucose POC Glucose 314 H Hemoglobin A1c Lactic Acid Ferritin Total Bilirubin AST ALT Lactate Dehydrogenase C-Reactive Protein Albumin Ur Specific [place] Urine WBC (Auto) SARS-CoV-2 IgG Ab Reactive A 05/27/20 05/27/20 05/27/20 08:33 08:33 12:13 RBC Hgb Hct MCHC RDW Lymph % (Auto) [place] % (Auto) Lymph # (Auto) [place] # (Auto) Seg Neutrophils % D-Dimer Sodium Potassium Chloride Carbon Dioxide 31 H Creatinine 0.5 L Glucose 192 H POC Glucose 197 H 237 H Hemoglobin A1c Lactic Acid Ferritin Total Bilirubin AST 75 H ALT 100 H Lactate Dehydrogenase C-Reactive Protein Albumin 3.1 L Ur Specific [place] Urine WBC (Auto) SARS-CoV-2 IgG Ab 05/27/20 05/27/20 05/28/20 16:15 21:07 04:58 RBC Hgb 15.3 H Hct MCHC 35 H RDW 12.8 L Lymph % (Auto) [place] % (Auto) 10.5 H Lymph # (Auto) 1.0 L [place] # (Auto) Seg Neutrophils % 75.3 H D-Dimer Sodium Potassium Chloride Carbon Dioxide Creatinine Glucose POC Glucose 348 H 307 H Hemoglobin A1c Lactic Acid Ferritin Total Bilirubin AST ALT Lactate Dehydrogenase C-Reactive Protein Albumin Ur Specific [place] Urine WBC (Auto) SARS-CoV-2 IgG Ab 05/28/20 05/28/20 05/28/20 04:58 04:58 04:58 RBC Hgb Hct MCHC RDW Lymph % (Auto) [place] % (Auto) Lymph # (Auto) [place] # (Auto) Seg Neutrophils % D-Dimer 270.88 H Sodium Potassium 3.5 L Chloride Carbon Dioxide Creatinine 0.4 L Glucose 214 H POC Glucose Hemoglobin A1c Lactic Acid Ferritin 1613.0 H Total Bilirubin AST 54 H ALT 102 H Lactate Dehydrogenase 246 H C-Reactive Protein Albumin 2.8 L Ur Specific [place] Urine WBC (Auto) SARS-CoV-2 IgG Ab 05/28/20 05/28/20 05/28/20 07:44 12:33 15:50 RBC Hgb Hct MCHC RDW Lymph % (Auto) [place] % (Auto) Lymph # (Auto) Snyder # (Auto) Seg Neutrophils % D-Dimer Sodium Potassium Chloride Carbon Dioxide Creatinine Glucose POC Glucose 200 H 209 H 367 H Hemoglobin A1c Lactic Acid Ferritin Total Bilirubin AST ALT Lactate Dehydrogenase C-Reactive Protein Albumin Ur Specific [place] Urine WBC (Auto) SARS-CoV-2 IgG Ab 05/28/20 05/29/20 05/29/20 22:22 05:24 07:32 RBC Hgb Hct MCHC RDW Lymph % (Auto) [place] % (Auto) Lymph # (Auto) [place] # (Auto) Seg Neutrophils % D-Dimer Sodium 135 L Potassium Chloride Carbon Dioxide Creatinine 0.5 L Glucose 254 H POC Glucose 238 H 213 H Hemoglobin A1c Lactic Acid Ferritin Total Bilirubin AST ALT Lactate Dehydrogenase C-Reactive Protein Albumin Ur Specific [place] Urine WBC (Auto) SARS-CoV-2 IgG Ab 05/29/20 05/29/20 05/29/20 11:36 17:26 22:50 RBC Hgb Hct MCHC RDW Lymph % (Auto) [place] % (Auto) Lymph # (Auto) Snyder # (Auto) Seg Neutrophils % D-Dimer Sodium Potassium Chloride Carbon Dioxide Creatinine Glucose POC Glucose 291 H 249 H 254 H Hemoglobin A1c Lactic Acid Ferritin Total Bilirubin AST ALT Lactate Dehydrogenase C-Reactive Protein Albumin Ur Specific [place] Urine WBC (Auto) SARS-CoV-2 IgG Ab 05/30/20 05/30/20 08:07 11:55 RBC Hgb Hct MCHC RDW Lymph % (Auto) [place] % (Auto) Lymph # (Auto) Snyder # (Auto) Seg Neutrophils % D-Dimer Sodium Potassium Chloride Carbon Dioxide Creatinine Glucose POC Glucose 323 H 285 H Hemoglobin A1c Lactic Acid Ferritin Total Bilirubin AST ALT Lactate Dehydrogenase C-Reactive Protein Albumin Ur Specific [place] Urine WBC (Auto) SARS-CoV-2 IgG Ab
[2020-05-30 17:12] LABS: Alanine Aminotransferase 126 units/L (7-56); Albumin 3.2 g/dL (3.9-5); Blood Urea Nitrogen 14 mg/dL (9-20); Hemolysis Index 15
[2020-05-30 17:14] LABS: BUN/Creatinine Ratio 20
[2020-05-31 06:05] LABS: Hematocrit 45.4 % (35.5-45.6); Hemoglobin 15.9 gm/dl (11.8-15.2); Mean Corpuscular HGB Conc 35 % (32-34); Mean Corpuscular Volume 89 fl (84-94); Platelet Count 220 K/mm3 (140-440); Red Cell Distribution Width 12.7 % (13.2-15.2)
[2020-05-31 06:14] LABS: Alanine Aminotransferase 104 units/L (7-56); Albumin 3.1 g/dL (3.9-5); Blood Urea Nitrogen 13 mg/dL (9-20); Calcium 8.9 mg/dL (8.4-10.2); Hemolysis Index 10
[2020-05-31 06:17] LABS: Basophils % (Auto) 0.1 % (0.0-1.8); Eosinophils % (Auto) 0.4 % (0.0-4.3); Lymphocytes % (Auto) 11.7 % (13.4-35.0); Monocytes # (Auto) 0.8 K/mm3 (0.0-0.8); Monocytes % (Auto) 8.8 % (0.0-7.3)
[2020-05-31 06:36] LABS: BUN/Creatinine Ratio 33
[2020-05-31] MEDS: INSULIN LISPRO 100 UNIT/ML VIAL 3 mL SUB-Q SCH ×4 (09:02→22:36)
--- NOTE | 2020-05-31 10:11 | XRay Report ---
CHEST 1 VIEW 05/31/2020 7:44 AM INDICATION / CLINICAL INFORMATION: follow up respiratory failure. COMPARISON: 05/30/2020 FINDINGS: SUPPORT DEVICES: None. HEART / MEDIASTINUM: Stable. LUNGS / PLEURA: Patchy and confluent streaky opacities throughout the lungs overall slightly improved when compared to the prior examination. No effusion. No pneumothorax. ADDITIONAL FINDINGS: No significant additional findings. IMPRESSION: 1. Mild improvement. Signer Name: Alejandro Simons MD Signed: 05/31/2020 10:07 AM Workstation Name: [id number]
[2020-05-31] MEDS: FAMOTIDINE 20 MG TAB PO SCH ×2 (11:07→22:37)
[2020-05-31] MEDS: ZINC SULFATE 220 MG CAP PO SCH (11:07)
[2020-05-31] MEDS: dexAMETHasone 4 MG/ML VIAL IV SCH (11:07)
[2020-05-31] MEDS: ASCORBIC ACID 500 MG TAB PO SCH ×2 (11:07→22:37)
[2020-05-31] MEDS: INSULIN GLARGINE 100 UNITS/ML SUB-Q SCH ×2 (11:08→22:37)
[2020-05-31] MEDS: ENOXAPARIN 40 MG/0.4 ML INJ SUB-Q SCH (11:08)
--- NOTE | 2020-05-31 11:13 | Progress Note ---
Assessment and Plan 54 y/o male with acute respiratory failure thought secondary to COVID but initial test negative, ab test positive now with send out pending. 1. Wean FiO2 for sats >88% 2. Prone as much as possible during the day and sleep prone at night, expressed the importance of this again, hopeful he will try. Still is not proning. 3. Steroids for 10 days 4. Will give lasix again today. 5. Send out COVID negative as well. 6. needs to get out of bed and at least sit up in chair. 7. Patient has no funding, so not sure if he can afford oxygen therapy at home. Will need to be as aggressive with weaning as possible. Guarded prognosis. Subjective Date of service: 05/31/20 Principal diagnosis: Pneumonia Interval history: Down to 4 liters with good sats. Updated O2 requirement not documented yet. Objective Vital Signs - 12hr 05/30/20 05/31/20 23:58 05:36 Temperature 97.1 F L 97.3 F L Pulse Rate 66 69 Respiratory 20 16 Rate Blood Pressure 118/77 114/82 O2 Sat by Pulse 95 96 Oximetry Constitutional: no acute distress, alert Eyes: non-icteric Neck: supple Effort: mildly labored Ascultation: Bilateral: clear (anteriorly) Cardiovascular: regular rate and rhythm (no mrg) Gastrointestinal: normoactive bowel sounds, soft, non-tender, non-distended Integumentary: normal Extremities: no cyanosis, no edema, pink and warm Neurologic: normal mental status, non-focal exam, pupils equal and round, CN II- XII normal Psychiatric: mood appropriate, affect normal CBC and BMP: 05/31/20 05:00 05/31/20 05:00 ABG, PT/INR, D-dimer: PT/INR, D-dimer D-Dimer 270.88 ng/mlDDU (0-234) H 05/28/20 04:58 Abnormal lab findings: Abnormal Labs 05/24/20 05/24/20 05/24/20 17:46 17:46 17:46 RBC 6.03 H Hgb 18.9 H Hct 54.1 H MCHC 35 H RDW Lymph % (Auto) 8.6 L [place] % (Auto) 15.9 H Lymph # (Auto) 0.7 L [place] # (Auto) 1.4 H Seg Neutrophils % 74.9 H D-Dimer 569.00 H Sodium 131 L Potassium Chloride 93.2 L Carbon Dioxide Creatinine 0.6 L Glucose 273 H POC Glucose Hemoglobin A1c Lactic Acid Ferritin Total Bilirubin 1.40 H AST 101 H ALT 78 H Lactate Dehydrogenase 505 H C-Reactive Protein 3.50 H Albumin 3.1 L Ur Specific [place] Urine WBC (Auto) SARS-CoV-2 IgG Ab 05/24/20 05/24/20 05/24/20 17:46 17:46 20:40 RBC Hgb Hct MCHC RDW Lymph % (Auto) [place] % (Auto) Lymph # (Auto) [place] # (Auto) Seg Neutrophils % D-Dimer Sodium Potassium Chloride Carbon Dioxide Creatinine Glucose 268 H POC Glucose Hemoglobin A1c Lactic Acid 2.30 H* Ferritin 3592.0 H Total Bilirubin AST ALT Lactate Dehydrogenase 476 H C-Reactive Protein 3.40 H Albumin Ur Specific [place] Urine WBC (Auto) SARS-CoV-2 IgG Ab 05/25/20 05/25/20 05/25/20 02:55 02:55 02:55 RBC Hgb Hct MCHC RDW Lymph % (Auto) [place] % (Auto) Lymph # (Auto) [place] # (Auto) Seg Neutrophils % D-Dimer 418.22 H Sodium Potassium Chloride Carbon Dioxide Creatinine Glucose 290 H POC Glucose Hemoglobin A1c Lactic Acid Ferritin 2913.0 H Total Bilirubin AST ALT Lactate Dehydrogenase 396 H C-Reactive Protein 3.20 H Albumin Ur Specific [place] Urine WBC (Auto) SARS-CoV-2 IgG Ab 05/25/20 05/25/20 05/25/20 05:41 10:32 11:31 RBC 5.28 H Hgb 16.8 H Hct 47.8 H D MCHC 35 H RDW Lymph % (Auto) 10.9 L [place] % (Auto) 13.6 H Lymph # (Auto) 0.5 L [place] # (Auto) Seg Neutrophils % 75.3 H D-Dimer Sodium Potassium Chloride Carbon Dioxide Creatinine Glucose POC Glucose 309 H Hemoglobin A1c Lactic Acid Ferritin Total Bilirubin AST ALT Lactate Dehydrogenase C-Reactive Protein Albumin Ur Specific [place] 1.032 H Urine WBC (Auto) 7.0 H SARS-CoV-2 IgG Ab 05/25/20 05/25/20 05/25/20 11:31 11:31 17:44 RBC Hgb Hct MCHC RDW Lymph % (Auto) [place] % (Auto) Lymph # (Auto) [place] # (Auto) Seg Neutrophils % D-Dimer Sodium 134 L Potassium Chloride 96.2 L Carbon Dioxide Creatinine 0.5 L Glucose 322 H POC Glucose 370 H Hemoglobin A1c 11.3 H Lactic Acid Ferritin Total Bilirubin AST ALT Lactate Dehydrogenase C-Reactive Protein Albumin Ur Specific [place] Urine WBC (Auto) SARS-CoV-2 IgG Ab 05/25/20 05/26/20 05/26/20 22:22 11:27 16:18 RBC Hgb Hct MCHC RDW Lymph % (Auto) [place] % (Auto) Lymph # (Auto) [place] # (Auto) Seg Neutrophils % D-Dimer Sodium Potassium Chloride Carbon Dioxide Creatinine Glucose POC Glucose 308 H 283 H 313 H Hemoglobin A1c Lactic Acid Ferritin Total Bilirubin AST ALT Lactate Dehydrogenase C-Reactive Protein Albumin Ur Specific [place] Urine WBC (Auto) SARS-CoV-2 IgG Ab 05/26/20 05/26/20 05/27/20 18:47 21:39 08:33 RBC 5.31 H Hgb 16.8 H Hct 48.2 H MCHC 35 H RDW Lymph % (Auto) 12.7 L [place] % (Auto) 9.6 H Lymph # (Auto) 1.0 L [place] # (Auto) Seg Neutrophils % 77.3 H D-Dimer Sodium Potassium Chloride Carbon Dioxide Creatinine Glucose POC Glucose 314 H Hemoglobin A1c Lactic Acid Ferritin Total Bilirubin AST ALT Lactate Dehydrogenase C-Reactive Protein Albumin Ur Specific [place] Urine WBC (Auto) SARS-CoV-2 IgG Ab Reactive A 05/27/20 05/27/20 05/27/20 08:33 08:33 12:13 RBC Hgb Hct MCHC RDW Lymph % (Auto) [place] % (Auto) Lymph # (Auto) [place] # (Auto) Seg Neutrophils % D-Dimer Sodium Potassium Chloride Carbon Dioxide 31 H Creatinine 0.5 L Glucose 192 H POC Glucose 197 H 237 H Hemoglobin A1c Lactic Acid Ferritin Total Bilirubin AST 75 H ALT 100 H Lactate Dehydrogenase C-Reactive Protein Albumin 3.1 L Ur Specific [place] Urine WBC (Auto) SARS-CoV-2 IgG Ab 05/27/20 05/27/20 05/28/20 16:15 21:07 04:58 RBC Hgb 15.3 H Hct MCHC 35 H RDW 12.8 L Lymph % (Auto) [place] % (Auto) 10.5 H Lymph # (Auto) 1.0 L [place] # (Auto) Seg Neutrophils % 75.3 H D-Dimer Sodium Potassium Chloride Carbon Dioxide Creatinine Glucose POC Glucose 348 H 307 H Hemoglobin A1c Lactic Acid Ferritin Total Bilirubin AST ALT Lactate Dehydrogenase C-Reactive Protein Albumin Ur Specific [place] Urine WBC (Auto) SARS-CoV-2 IgG Ab 05/28/20 05/28/20 05/28/20 04:58 04:58 04:58 RBC Hgb Hct MCHC RDW Lymph % (Auto) [place] % (Auto) Lymph # (Auto) [place] # (Auto) Seg Neutrophils % D-Dimer 270.88 H Sodium Potassium 3.5 L Chloride Carbon Dioxide Creatinine 0.4 L Glucose 214 H POC Glucose Hemoglobin A1c Lactic Acid Ferritin 1613.0 H Total Bilirubin AST 54 H ALT 102 H Lactate Dehydrogenase 246 H C-Reactive Protein Albumin 2.8 L Ur Specific [place] Urine WBC (Auto) SARS-CoV-2 IgG Ab 05/28/20 05/28/20 05/28/20 07:44 12:33 15:50 RBC Hgb Hct MCHC RDW Lymph % (Auto) [place] % (Auto) Lymph # (Auto) [place] # (Auto) Seg Neutrophils % D-Dimer Sodium Potassium Chloride Carbon Dioxide Creatinine Glucose POC Glucose 200 H 209 H 367 H Hemoglobin A1c Lactic Acid Ferritin Total Bilirubin AST ALT Lactate Dehydrogenase C-Reactive Protein Albumin Ur Specific [place] Urine WBC (Auto) SARS-CoV-2 IgG Ab 05/28/20 05/29/20 05/29/20 22:22 05:24 07:32 RBC Hgb Hct MCHC RDW Lymph % (Auto) [place] % (Auto) Lymph # (Auto) [place] # (Auto) Seg Neutrophils % D-Dimer Sodium 135 L Potassium Chloride Carbon Dioxide Creatinine 0.5 L Glucose 254 H POC Glucose 238 H 213 H Hemoglobin A1c Lactic Acid Ferritin Total Bilirubin AST ALT Lactate Dehydrogenase C-Reactive Protein Albumin Ur Specific [place] Urine WBC (Auto) SARS-CoV-2 IgG Ab 05/29/20 05/29/20 05/29/20 11:36 17:26 22:50 RBC Hgb Hct MCHC RDW Lymph % (Auto) [place] % (Auto) Lymph # (Auto) [place] # (Auto) Seg Neutrophils % D-Dimer Sodium Potassium Chloride Carbon Dioxide Creatinine Glucose POC Glucose 291 H 249 H 254 H Hemoglobin A1c Lactic Acid Ferritin Total Bilirubin AST ALT Lactate Dehydrogenase C-Reactive Protein Albumin Ur Specific [place] Urine WBC (Auto) SARS-CoV-2 IgG Ab 05/30/20 05/30/2005/30/20 08:07 11:55 15:37 RBC Hgb Hct MCHC RDW Lymph % (Auto) [place] % (Auto) Lymph # (Auto) [place] # (Auto) Seg Neutrophils % D-Dimer Sodium 133 L Potassium 5.1 H D Chloride 95.6 L Carbon Dioxide Creatinine 0.7 L Glucose 295 H POC Glucose 323 H 285 H Hemoglobin A1c Lactic Acid Ferritin Total Bilirubin AST 45 H ALT 126 H Lactate Dehydrogenase C-Reactive Protein Albumin 3.2 L Ur Specific [place] Urine WBC (Auto) SARS-CoV-2 IgG Ab 05/30/20 05/30/20 05/31/20 17:30 21:53 05:00 RBC 5.10 H Hgb 15.9 H Hct MCHC 35 H RDW 12.7 L Lymph % (Auto) 11.7 L [place] % (Auto) 8.8 H Lymph # (Auto) 1.0 L [place] # (Auto) Seg Neutrophils % 79.0 H D-Dimer Sodium Potassium Chloride Carbon Dioxide Creatinine Glucose POC Glucose 279 H 179 H Hemoglobin A1c Lactic Acid Ferritin Total Bilirubin AST ALT Lactate Dehydrogenase C-Reactive Protein Albumin Ur Specific [place] Urine WBC (Auto) SARS-CoV-2 IgG Ab 05/31/20 05/31/20 05:00 07:46 RBC Hgb Hct MCHC RDW Lymph % (Auto) [place] % (Auto) Lymph # (Auto) [place] # (Auto) Seg Neutrophils % D-Dimer Sodium 136 L Potassium Chloride Carbon Dioxide Creatinine 0.4 L Glucose 180 H POC Glucose 108 H Hemoglobin A1c Lactic Acid Ferritin Total Bilirubin AST ALT 104 H Lactate Dehydrogenase C-Reactive Protein Albumin 3.1 L Ur Specific [place] Urine WBC (Auto) SARS-CoV-2 IgG Ab
--- NOTE | 2020-05-31 12:28 | Progress Note ---
Subjective Date of service: 05/31/20 Principal diagnosis: Pneumonia Interval history: Assessment and plan: 54-year-old male present with a chief complaint of shortness of breath. Patient states he came to the emergency department because of "Covid." The patient states for the past 2 weeks he has had shortness of breath weakness and lethargy. Patient admits to fever 100.4 F and a cough occasionally productive of sputum. Patient states he feels dehydrated. The patient states he's never had a Covid test Ed Work up shows WBC 8.7, hemoglobin 18.9, d-dimer 569, sodium 131, potasium 4.1, Cr .06, serum glucose 268, and ferritin 3592 Chest x-ray-shows bilateral Pneumonia Patient seen at bedside, on oxygen per N/c. He admits alcohol use but quit 2 years ago. Reviewed lab, mar, and v/s 05/24: Add insulin for BG control, consult Pulmonary considering Hypoxia. Continue current management and check hgb A1C. 05/26. Remains on oxygen. Influenza sawb today. ID and pulmonlogy following. 05/27. Influenza negative. Father admitted with similar symptoms tested positive for COVID. Awaiting repeat COVID test. 05/28. Apparently Covid test was not ordered so this has been ordered today. He is oxygen saturation is better-now on 9 L of oxygen. Pulmonology rec ommendations appreciated. 05/29. Feels better. Now on 8L. Getting lasix IV. 05/30. Repeat COVID-19 testing negative. Patient is now on 5 L of oxygen with sats in the mid 90s. Awaiting chem 7. 05/31/20 patient is alert and oriented and offers no specific complaints except mild cough, denies shortness of breath. Pulmonary and ID notes reviewed Lab results reviewed Plan (1) Bilateral pneumonia Current Visit: Yes Status: Acute Plan to address problem: COVID-19 negative. Repeat COVID-PCR negative, Covid IgG ab. positive ID note reviewed Antibiotics discontinued (2) Suspected COVID-19 virus infection-negative with positive IgG antibody Continue Decadron (3) Acute respiratory failure with hypoxia Current Visit: Yes Status: Acute Plan to address problem: Likely 2/2 viral pneumonia PRN bronchodilators and oxygen supplementation. Now on 5 L of oxygen Pulmonary recs appreciated Incentive spirometer Wean as tolerated (4) Diabetes mellitus-newly diagnosed Hemoglobin A1c 11.3 Continue Lantus and lispro sliding scale coverage. Continue lantus 26 units BID Diabetic education (5) DVT prophylaxis Current Visit: Yes Status: Acute Plan to address problem: Lovenox (6) Advance care planning Current Visit: Yes Status: Acute Plan to address problem: Full code status History Interval history: Patient seen and examined at bedside this morning Patient's oxygenation is improved-now on 5 L of oxygen with sats in the mid 90s. Narrative exam: VITAL SIGNS: Reviewed. GENERAL: Awake HEAD: No signs of head trauma. EYES: Pupils are equal. Extraocular motions intact. NECK: No adenopathy, no JVD. CHEST: Clear to auscultation CARDIAC: Regular rate and rhythm ABDOMEN: Soft, non tender and non distended. MUSCULOSKELETAL: No edema NEUROLOGIC EXAM: Alert and oriented x3. No focal neurologic deficits SKIN: No obvious lesions Objective - Constitutional Vitals: Vital Signs - 12hr 05/31/20 05:36 Temperature 97.3 F L Pulse Rate 69 Respiratory 16 Rate Blood Pressure 114/82 O2 Sat by Pulse 96 Oximetry - Labs CBC & Chem 7: 05/31/20 05:00 05/31/20 05:00 Labs: Abnormal lab results 05/30/20 05/30/20 05/30/20 Range/Units 15:37 17:30 21:53 RBC (3.65-5.03) M/mm3 Hgb (11.8-15.2) gm/dl MCHC (32-34) % RDW (13.2-15.2) % Lymph % (Auto) (13.4-35.0) % [place] % (Auto) (0.0-7.3) % Lymph # (Auto) (1.2-5.4) K/mm3 Seg Neutrophils % (40.0-70.0) % Sodium 133 L (137-145) mmol/L Potassium 5.1 H D (3.6-5.0) mmol/L Chloride 95.6 L (98-107) mmol/L Creatinine 0.7 L (0.8-1.3) mg/dL Glucose 295 H (75-100) mg/dL POC Glucose 279 H 179 H (70-105) mg/dL AST 45 H (5-40) units/L ALT 126 H (7-56) units/L Albumin 3.2 L (3.9-5) g/dL 05/31/20 05/31/20 05/31/20 Range/Units 05:00 05:00 07:46 RBC 5.10 H (3.65-5.03) M/mm3 Hgb 15.9 H (11.8-15.2) gm/dl MCHC 35 H (32-34) % RDW 12.7 L (13.2-15.2) % Lymph % (Auto) 11.7 L (13.4-35.0) % [place] % (Auto) 8.8 H (0.0-7.3) % Lymph # (Auto) 1.0 L (1.2-5.4) K/mm3 Seg Neutrophils % 79.0 H (40.0-70.0) % Sodium 136 L (137-145) mmol/L Potassium (3.6-5.0) mmol/L Chloride (98-107) mmol/L Creatinine 0.4 L (0.8-1.3) mg/dL Glucose 180 H (75-100) mg/dL POC Glucose 108 H (70-105) mg/dL AST (5-40) units/L ALT 104 H (7-56) units/L Albumin 3.1 L (3.9-5) g/dL 05/31/20 Range/Units 12:16 RBC (3.65-5.03) M/mm3 Hgb (11.8-15.2) gm/dl MCHC (32-34) % RDW (13.2-15.2) % Lymph % (Auto) (13.4-35.0) % [place] % (Auto) (0.0-7.3) % Lymph # (Auto) (1.2-5.4) K/mm3 Seg Neutrophils % (40.0-70.0) % Sodium (137-145) mmol/L Potassium (3.6-5.0) mmol/L Chloride (98-107) mmol/L Creatinine (0.8-1.3) mg/dL Glucose (75-100) mg/dL POC Glucose 150 H (70-105) mg/dL AST (5-40) units/L ALT (7-56) units/L Albumin (3.9-5) g/dL HEART Score - HEART Score Troponin: Troponin T < 0.010 ng/mL (0.00-0.029) 05/24/20 17:46
[2020-06-01 06:57] LABS: Basophils % (Auto) 0.1 % (0.0-1.8); Eosinophils % (Auto) 0.3 % (0.0-4.3); Hematocrit 45.6 % (35.5-45.6); Hemoglobin 15.9 gm/dl (11.8-15.2); Lymphocytes # (Auto) 1.1 K/mm3 (1.2-5.4); Mean Corpuscular HGB Conc 35 % (32-34); Mean Corpuscular Volume 91 fl (84-94); Monocytes # (Auto) 0.9 K/mm3 (0.0-0.8); Monocytes % (Auto) 9.6 % (0.0-7.3); Platelet Count 203 K/mm3 (140-440); Red Blood Count 5.04 M/mm3 (3.65-5.03); Red Cell Distribution Width 13.1 % (13.2-15.2)
[2020-06-01 07:12] LABS: Alanine Aminotransferase 103 units/L (7-56); Albumin 3.2 g/dL (3.9-5); Blood Urea Nitrogen 12 mg/dL (9-20); Calcium 8.8 mg/dL (8.4-10.2); Hemolysis Index 7
[2020-06-01 07:13] LABS: BUN/Creatinine Ratio 24
[2020-06-01] MEDS: INSULIN LISPRO 100 UNIT/ML VIAL 3 mL SUB-Q SCH ×4 (09:22→23:58)
[2020-06-01] MEDS: FAMOTIDINE 20 MG TAB PO SCH ×2 (09:23→23:58)
[2020-06-01] MEDS: ENOXAPARIN 40 MG/0.4 ML INJ SUB-Q SCH (09:23)
[2020-06-01] MEDS: ZINC SULFATE 220 MG CAP PO SCH (09:23)
[2020-06-01] MEDS: ASCORBIC ACID 500 MG TAB PO SCH ×2 (09:23→23:57)
[2020-06-01] MEDS: dexAMETHasone 4 MG/ML VIAL IV SCH (09:23)
[2020-06-01] MEDS: INSULIN GLARGINE 100 UNITS/ML SUB-Q SCH ×2 (09:24→23:57)
--- NOTE | 2020-06-01 11:29 | Progress Note ---
Assessment and Plan 54 y/o male with acute respiratory failure thought secondary to COVID but initial test negative, ab test positive now with send out pending. 1. Wean FiO2 for sats >88% 2. Prone as much as possible during the day and sleep prone at night, expressed the importance of this again, hopeful he will try. Still is not proning. 3. Steroids for 10 days 4. Hold on lasix therapy today. 5. Send out COVID negative as well. 6. needs to get out of bed and at least sit up in chair. 7. Patient has no funding, so not sure if he can afford oxygen therapy at home. Will need to be as aggressive with weaning as possible. Consider checking amb ulatory sats either tomorrow or wednesday. Guarded prognosis. Subjective Date of service: 06/01/20 Principal diagnosis: Pneumonia Interval history: Down to 2 liters today. Good sats. Looks and feels better. I updated him on his father who is in the ICU here. Objective Vital Signs - 12hr 05/31/20 06/01/20 06/01/20 23:43 06:00 09:41 Temperature 97.4 F L 97.6 F Pulse Rate 66 66 Respiratory 20 18 Rate Blood Pressure 114/72 117/73 O2 Sat by Pulse 95 95 95 Oximetry Constitutional: no acute distress, alert Eyes: non-icteric Neck: supple Effort: mildly labored Ascultation: Bilateral: clear (anteriorly) Cardiovascular: regular rate and rhythm (no mrg) Gastrointestinal: normoactive bowel sounds, soft, non-tender, non-distended Integumentary: normal Extremities: no cyanosis, no edema, pink and warm Neurologic: normal mental status, non-focal exam, pupils equal and round, CN II- XII normal Psychiatric: mood appropriate, affect normal CBC and BMP: 06/01/20 05:42 06/01/20 05:42 ABG, PT/INR, D-dimer: PT/INR, D-dimer D-Dimer 270.88 ng/mlDDU (0-234) H 05/28/20 04:58 Abnormal lab findings: Abnormal Labs 05/24/20 05/24/20 05/24/20 17:46 17:46 17:46 RBC 6.03 H Hgb 18.9 H Hct 54.1 H MCHC 35 H RDW Lymph % (Auto) 8.6 L [place] % (Auto) 15.9 H Lymph # (Auto) 0.7 L [place] # (Auto) 1.4 H Seg Neutrophils % 74.9 H D-Dimer 569.00 H Sodium 131 L Potassium Chloride 93.2 L Carbon Dioxide Creatinine 0.6 L Glucose 273 H POC Glucose Hemoglobin A1c Lactic Acid Ferritin Total Bilirubin 1.40 H AST 101 H ALT 78 H Lactate Dehydrogenase 505 H C-Reactive Protein 3.50 H Albumin 3.1 L Ur Specific [place] Urine WBC (Auto) SARS-CoV-2 IgG Ab 05/24/20 05/24/20 05/24/20 17:46 17:46 20:40 RBC Hgb Hct MCHC RDW Lymph % (Auto) [place] % (Auto) Lymph # (Auto) [place] # (Auto) Seg Neutrophils % D-Dimer Sodium Potassium Chloride Carbon Dioxide Creatinine Glucose 268 H POC Glucose Hemoglobin A1c Lactic Acid 2.30 H* Ferritin 3592.0 H Total Bilirubin AST ALT Lactate Dehydrogenase 476 H C-Reactive Protein 3.40 H Albumin Ur Specific [place] Urine WBC (Auto) SARS-CoV-2 IgG Ab 05/25/20 05/25/20 05/25/20 02:55 02:55 02:55 RBC Hgb Hct MCHC RDW Lymph % (Auto) [place] % (Auto) Lymph # (Auto) [place] # (Auto) Seg Neutrophils % D-Dimer 418.22 H Sodium Potassium Chloride Carbon Dioxide Creatinine Glucose 290 H POC Glucose Hemoglobin A1c Lactic Acid Ferritin 2913.0 H Total Bilirubin AST ALT Lactate Dehydrogenase 396 H C-Reactive Protein 3.20 H Albumin Ur Specific [place] Urine WBC (Auto) SARS-CoV-2 IgG Ab 05/25/20 05/25/20 05/25/20 05:41 10:32 11:31 RBC 5.28 H Hgb 16.8 H Hct 47.8 H D MCHC 35 H RDW Lymph % (Auto) 10.9 L [place] % (Auto) 13.6 H Lymph # (Auto) 0.5 L [place] # (Auto) Seg Neutrophils % 75.3 H D-Dimer Sodium Potassium Chloride Carbon Dioxide Creatinine Glucose POC Glucose 309 H Hemoglobin A1c Lactic Acid Ferritin Total Bilirubin AST ALT Lactate Dehydrogenase C-Reactive Protein Albumin Ur Specific [place] 1.032 H Urine WBC (Auto) 7.0 H SARS-CoV-2 IgG Ab 05/25/20 05/25/20 05/25/20 11:31 11:31 17:44 RBC Hgb Hct MCHC RDW Lymph % (Auto) [place] % (Auto) Lymph # (Auto) [place] # (Auto) Seg Neutrophils % D-Dimer Sodium 134 L Potassium Chloride 96.2 L Carbon Dioxide Creatinine 0.5 L Glucose 322 H POC Glucose 370 H Hemoglobin A1c 11.3 H Lactic Acid Ferritin Total Bilirubin AST ALT Lactate Dehydrogenase C-Reactive Protein Albumin Ur Specific [place] Urine WBC (Auto) SARS-CoV-2 IgG Ab 05/25/20 05/26/20 05/26/20 22:22 11:27 16:18 RBC Hgb Hct MCHC RDW Lymph % (Auto) [place] % (Auto) Lymph # (Auto) [place] # (Auto) Seg Neutrophils % D-Dimer Sodium Potassium Chloride Carbon Dioxide Creatinine Glucose POC Glucose 308 H 283 H 313 H Hemoglobin A1c Lactic Acid Ferritin Total Bilirubin AST ALT Lactate Dehydrogenase C-Reactive Protein Albumin Ur Specific [place] Urine WBC (Auto) SARS-CoV-2 IgG Ab 05/26/20 05/26/20 05/27/20 18:47 21:39 08:33 RBC 5.31 H Hgb 16.8 H Hct 48.2 H MCHC 35 H RDW Lymph % (Auto) 12.7 L [place] % (Auto) 9.6 H Lymph # (Auto) 1.0 L [place] # (Auto) Seg Neutrophils % 77.3 H D-Dimer Sodium Potassium Chloride Carbon Dioxide Creatinine Glucose POC Glucose 314 H Hemoglobin A1c Lactic Acid Ferritin Total Bilirubin AST ALT Lactate Dehydrogenase C-Reactive Protein Albumin Ur Specific [place] Urine WBC (Auto) SARS-CoV-2 IgG Ab Reactive A 05/27/20 05/27/20 05/27/20 08:33 08:33 12:13 RBC Hgb Hct MCHC RDW Lymph % (Auto) [place] % (Auto) Lymph # (Auto) [place] # (Auto) Seg Neutrophils % D-Dimer Sodium Potassium Chloride Carbon Dioxide 31 H Creatinine 0.5 L Glucose 192 H POC Glucose 197 H 237 H Hemoglobin A1c Lactic Acid Ferritin Total Bilirubin AST 75 H ALT 100 H Lactate Dehydrogenase C-Reactive Protein Albumin 3.1 L Ur Specific [place] Urine WBC (Auto) SARS-CoV-2 IgG Ab 05/27/20 05/27/20 05/28/20 16:15 21:07 04:58 RBC Hgb 15.3 H Hct MCHC 35 H RDW 12.8 L Lymph % (Auto) [place] % (Auto) 10.5 H Lymph # (Auto) 1.0 L [place] # (Auto) Seg Neutrophils % 75.3 H D-Dimer Sodium Potassium Chloride Carbon Dioxide Creatinine Glucose POC Glucose 348 H 307 H Hemoglobin A1c Lactic Acid Ferritin Total Bilirubin AST ALT Lactate Dehydrogenase C-Reactive Protein Albumin Ur Specific [place] Urine WBC (Auto) SARS-CoV-2 IgG Ab 05/28/20 05/28/20 05/28/20 04:58 04:58 04:58 RBC Hgb Hct MCHC RDW Lymph % (Auto) [place] % (Auto) Lymph # (Auto) [place] # (Auto) Seg Neutrophils % D-Dimer 270.88 H Sodium Potassium 3.5 L Chloride Carbon Dioxide Creatinine 0.4 L Glucose 214 H POC Glucose Hemoglobin A1c Lactic Acid Ferritin 1613.0 H Total Bilirubin AST 54 H ALT 102 H Lactate Dehydrogenase 246 H C-Reactive Protein Albumin 2.8 L Ur Specific [place] Urine WBC (Auto) SARS-CoV-2 IgG Ab 05/28/20 05/28/20 05/28/20 07:44 12:33 15:50 RBC Hgb Hct MCHC RDW Lymph % (Auto) [place] % (Auto) Lymph # (Auto) [place] # (Auto) Seg Neutrophils % D-Dimer Sodium Potassium Chloride Carbon Dioxide Creatinine Glucose POC Glucose 200 H 209 H 367 H Hemoglobin A1c Lactic Acid Ferritin Total Bilirubin AST ALT Lactate Dehydrogenase C-Reactive Protein Albumin Ur Specific [place] Urine WBC (Auto) SARS-CoV-2 IgG Ab 05/28/20 05/29/20 05/29/20 22:22 05:24 07:32 RBC Hgb Hct MCHC RDW Lymph % (Auto) [place] % (Auto) Lymph # (Auto) [place] # (Auto) Seg Neutrophils % D-Dimer Sodium 135 L Potassium Chloride Carbon Dioxide Creatinine 0.5 L Glucose 254 H POC Glucose 238 H 213 H Hemoglobin A1c Lactic Acid Ferritin Total Bilirubin AST ALT Lactate Dehydrogenase C-Reactive Protein Albumin Ur Specific [place] Urine WBC (Auto) SARS-CoV-2 IgG Ab 05/29/20 05/29/20 05/29/20 11:36 17:26 22:50 RBC Hgb Hct MCHC RDW Lymph % (Auto) [place] % (Auto) Lymph # (Auto) [place] # (Auto) Seg Neutrophils % D-Dimer Sodium Potassium Chloride Carbon Dioxide Creatinine Glucose POC Glucose 291 H 249 H 254 H Hemoglobin A1c Lactic Acid Ferritin Total Bilirubin AST ALT Lactate Dehydrogenase C-Reactive Protein Albumin Ur Specific [place] Urine WBC (Auto) SARS-CoV-2 IgG Ab 05/30/20 05/30/20 05/30/20 08:07 11:55 15:37 RBC Hgb Hct MCHC RDW Lymph % (Auto) [place] % (Auto) Lymph # (Auto) [place] # (Auto) Seg Neutrophils % D-Dimer Sodium 133 L Potassium 5.1 H D Chloride 95.6 L Carbon Dioxide Creatinine 0.7 L Glucose 295 H POC Glucose 323 H 285 H Hemoglobin A1c Lactic Acid Ferritin Total Bilirubin AST 45 H ALT 126 H Lactate Dehydrogenase C-Reactive Protein Albumin 3.2 L Ur Specific [place] Urine WBC (Auto) SARS-CoV-2 IgG Ab 05/30/20 05/30/20 05/31/20 17:30 21:53 05:00 RBC 5.10 H Hgb 15.9 H Hct MCHC 35 H RDW 12.7 L Lymph % (Auto) 11.7 L [place] % (Auto) 8.8 H Lymph # (Auto) 1.0 L [place] # (Auto) Seg Neutrophils % 79.0 H D-Dimer Sodium Potassium Chloride Carbon Dioxide Creatinine Glucose POC Glucose 279 H 179 H Hemoglobin A1c Lactic Acid Ferritin Total Bilirubin AST ALT Lactate Dehydrogenase C-Reactive Protein Albumin Ur Specific [place] Urine WBC (Auto) SARS-CoV-2 IgG Ab 05/31/20 05/31/20 05/31/20 05:00 07:46 12:16 RBC Hgb Hct MCHC RDW Lymph % (Auto) [place] % (Auto) Lymph # (Auto) [place] # (Auto) Seg Neutrophils % D-Dimer Sodium 136 L Potassium Chloride Carbon Dioxide Creatinine 0.4 L Glucose 180 H POC Glucose 108 H 150 H Hemoglobin A1c Lactic Acid Ferritin Total Bilirubin AST ALT 104 H Lactate Dehydrogenase C-Reactive Protein Albumin 3.1 L Ur Specific [place] Urine WBC (Auto) SARS-CoV-2 IgG Ab 05/31/20 05/31/20 06/01/20 16:48 22:02 05:42 RBC 5.04 H Hgb 15.9 H Hct MCHC 35 H RDW 13.1 L Lymph % (Auto) 12.0 L [place] % (Auto) 9.6 H Lymph # (Auto) 1.1 L [place] # (Auto) 0.9 H Seg Neutrophils % 78.0 H D-Dimer Sodium Potassium Chloride Carbon Dioxide Creatinine Glucose POC Glucose 261 H 244 H Hemoglobin A1c Lactic Acid Ferritin Total Bilirubin AST ALT Lactate Dehydrogenase C-Reactive Protein Albumin Ur Specific [place] Urine WBC (Auto) SARS-CoV-2 IgG Ab 06/01/20 06/01/20 05:42 07:42 RBC Hgb Hct MCHC RDW Lymph % (Auto) [place] % (Auto) Lymph # (Auto) [place] # (Auto) Seg Neutrophils % D-Dimer Sodium Potassium Chloride Carbon Dioxide 33 H Creatinine 0.5 L Glucose 148 H POC Glucose 142 H Hemoglobin A1c Lactic Acid Ferritin Total Bilirubin AST ALT 103 H Lactate Dehydrogenase C-Reactive Protein Albumin 3.2 L Ur Specific [place] Urine WBC (Auto) SARS-CoV-2 IgG Ab
--- NOTE | 2020-06-01 14:18 | Progress Note ---
Subjective Date of service: 06/01/20 Principal diagnosis: Pneumonia Interval history: Assessment and plan: 54-year-old male present with a chief complaint of shortness of breath. Patient states he came to the emergency department because of "Covid." The patient states for the past 2 weeks he has had shortness of breath weakness and lethargy. Patient admits to fever 100.4 F and a cough occasionally productive of sputum. Patient states he feels dehydrated. The patient states he's never had a Covid test Ed Work up shows WBC 8.7, hemoglobin 18.9, d-dimer 569, sodium 131, potasium 4.1, Cr .06, serum glucose 268, and ferritin 3592 Chest x-ray-shows bilateral Pneumonia Patient seen at bedside, on oxygen per N/c. He admits alcohol use but quit 2 years ago. Reviewed lab, mar, and v/s 05/24: Add insulin for BG control, consult Pulmonary considering Hypoxia. Continue current management and check hgb A1C. 05/26. Remains on oxygen. Influenza sawb today. ID and pulmonlogy following. 05/27. Influenza negative. Father admitted with similar symptoms tested positive for COVID. Awaiting repeat COVID test. 05/28. Apparently Covid test was not ordered so this has been ordered today. He is oxygen saturation is better-now on 9 L of oxygen. Pulmonology rec ommendations appreciated. 05/29. Feels better. Now on 8L. Getting lasix IV. 05/30. Repeat COVID-19 testing negative. Patient is now on 5 L of oxygen with sats in the mid 90s. Awaiting chem 7. 05/31/20 patient is alert and oriented and offers no specific complaints except mild cough, denies shortness of breath. Pulmonary and ID notes reviewed Lab results reviewed 06/01 patient is alert and oriented. He is on 4 L oxygen via nasal cannula. Discussed with respiratory therapist to decrease it to 2 L. O2 sat 95% on 2 L Pulmonary note reviewed Plan (1) Bilateral pneumonia Current Visit: Yes Status: Acute Plan to address problem: COVID-19 negative. Repeat COVID-PCR negative, Covid IgG ab. positive ID note reviewed Antibiotics discontinued (2) Suspected COVID-19 virus infection-negative with positive IgG antibody Continue Decadron Proning as able (3) Acute respiratory failure with hypoxia Current Visit: Yes Status: Acute Plan to address problem: Likely 2/2 viral pneumonia Patient has been weaned to 2 L via nasal cannula Incentive spirometer slow improvement Wean as tolerated (4) Diabetes mellitus-newly diagnosed Hemoglobin A1c 11.3 Continue Lantus and lispro sliding scale coverage. Continue lantus 26 units BID Diabetic education (5) DVT prophylaxis Current Visit: Yes Status: Acute Plan to address problem: Lovenox (6) Advance care planning Current Visit: Yes Status: Acute Plan to address problem: Full code status Narrative exam: VITAL SIGNS: Reviewed. GENERAL: Awake HEAD: No signs of head trauma. EYES: Pupils are equal. Extraocular motions intact. NECK: No adenopathy, no JVD. CHEST: Clear to auscultation CARDIAC: Regular rate and rhythm ABDOMEN: Soft, non tender and non distended. MUSCULOSKELETAL: No edema NEUROLOGIC EXAM: Alert and oriented x3. No focal neurologic deficits SKIN: No obvious lesions Objective - Constitutional Vitals: Vital Signs - 12hr 06/01/20 06/01/20 06/01/20 06:00 09:41 10:30 Temperature 97.6 F 98.0 F Pulse Rate 66 71 Respiratory 18 18 Rate Blood Pressure 117/73 138/87 O2 Sat by Pulse 95 95 97 Oximetry - Labs CBC & Chem 7: 06/01/20 05:42 06/01/20 05:42 Labs: Abnormal lab results 05/31/20 05/31/20 06/01/20 Range/Units 16:48 22:02 05:42 RBC 5.04 H (3.65-5.03) M/mm3 Hgb 15.9 H (11.8-15.2) gm/dl MCHC 35 H (32-34) % RDW 13.1 L (13.2-15.2) % Lymph % (Auto) 12.0 L (13.4-35.0) % [place] % (Auto) 9.6 H (0.0-7.3) % Lymph # (Auto) 1.1 L (1.2-5.4) K/mm3 [place] # (Auto) 0.9 H (0.0-0.8) K/mm3 Seg Neutrophils % 78.0 H (40.0-70.0) % Carbon Dioxide (22-30) mmol/L Creatinine (0.8-1.3) mg/dL Glucose (75-100) mg/dL POC Glucose 261 H 244 H (70-105) mg/dL ALT (7-56) units/L Albumin (3.9-5) g/dL 06/01/20 06/01/20 Range/Units 05:42 07:42 RBC (3.65-5.03) M/mm3 Hgb (11.8-15.2) gm/dl MCHC (32-34) % RDW (13.2-15.2) % Lymph % (Auto) (13.4-35.0) % [place] % (Auto) (0.0-7.3) % Lymph # (Auto) (1.2-5.4) K/mm3 [place] # (Auto) (0.0-0.8) K/mm3 Seg Neutrophils % (40.0-70.0) % Carbon Dioxide 33 H (22-30) mmol/L Creatinine 0.5 L (0.8-1.3) mg/dL Glucose 148 H (75-100) mg/dL POC Glucose 142 H (70-105) mg/dL ALT 103 H (7-56) units/L Albumin 3.2 L (3.9-5) g/dL HEART Score - HEART Score Troponin: Troponin T < 0.010 ng/mL (0.00-0.029) 05/24/20 17:46
[2020-06-02 06:25] LABS: Basophils % (Auto) 0.1 % (0.0-1.8); Eosinophils % (Auto) 0.3 % (0.0-4.3); Hematocrit 44.9 % (35.5-45.6); Hemoglobin 15.6 gm/dl (11.8-15.2); Lymphocytes # (Auto) 1.2 K/mm3 (1.2-5.4); Lymphocytes % (Auto) 13.9 % (13.4-35.0); Mean Corpuscular HGB Conc 35 % (32-34); Mean Corpuscular Volume 91 fl (84-94); Monocytes # (Auto) 0.9 K/mm3 (0.0-0.8); Monocytes % (Auto) 9.8 % (0.0-7.3); Platelet Count 202 K/mm3 (140-440); Red Blood Count 4.93 M/mm3 (3.65-5.03); Red Cell Distribution Width 13.1 % (13.2-15.2)
[2020-06-02 06:43] LABS: Alanine Aminotransferase 96 units/L (7-56); Albumin 3.2 g/dL (3.9-5); Blood Urea Nitrogen 13 mg/dL (9-20); Calcium 8.7 mg/dL (8.4-10.2); Hemolysis Index 8
[2020-06-02 06:48] LABS: BUN/Creatinine Ratio 26
[2020-06-02] MEDS: INSULIN LISPRO 100 UNIT/ML VIAL 3 mL SUB-Q SCH ×4 (09:14→21:14)
[2020-06-02] MEDS: FAMOTIDINE 20 MG TAB PO SCH ×2 (09:16→21:13)
[2020-06-02] MEDS: dexAMETHasone 4 MG/ML VIAL IV SCH (09:16)
[2020-06-02] MEDS: ENOXAPARIN 40 MG/0.4 ML INJ SUB-Q SCH (09:16)
[2020-06-02] MEDS: ASCORBIC ACID 500 MG TAB PO SCH ×2 (09:16→21:11)
[2020-06-02] MEDS: ZINC SULFATE 220 MG CAP PO SCH (09:16)
[2020-06-02] MEDS: INSULIN GLARGINE 100 UNITS/ML SUB-Q SCH ×2 (09:17→21:12)
--- NOTE | 2020-06-02 13:30 | Progress Note ---
Subjective Date of service: 06/02/20 Principal diagnosis: Pneumonia Interval history: Assessment and plan: 54-year-old male present with a chief complaint of shortness of breath. Patient states he came to the emergency department because of "Covid." The patient states for the past 2 weeks he has had shortness of breath weakness and lethargy. Patient admits to fever 100.4 F and a cough occasionally productive of sputum. Patient states he feels dehydrated. The patient states he's never had a Covid test Ed Work up shows WBC 8.7, hemoglobin 18.9, d-dimer 569, sodium 131, potasium 4.1, Cr .06, serum glucose 268, and ferritin 3592 Chest x-ray-shows bilateral Pneumonia Patient seen at bedside, on oxygen per N/c. He admits alcohol use but quit 2 years ago. Reviewed lab, mar, and v/s 05/24: Add insulin for BG control, consult Pulmonary considering Hypoxia. Continue current management and check hgb A1C. 05/26. Remains on oxygen. Influenza sawb today. ID and pulmonlogy following. 05/27. Influenza negative. Father admitted with similar symptoms tested positive for COVID. Awaiting repeat COVID test. 05/28. Apparently Covid test was not ordered so this has been ordered today. He is oxygen saturation is better-now on 9 L of oxygen. Pulmonology rec ommendations appreciated. 05/29. Feels better. Now on 8L. Getting lasix IV. 05/30. Repeat COVID-19 testing negative. Patient is now on 5 L of oxygen with sats in the mid 90s. Awaiting chem 7. 05/31/20 patient is alert and oriented and offers no specific complaints except mild cough, denies shortness of breath. Pulmonary and ID notes reviewed Lab results reviewed 06/01 patient is alert and oriented. He is on 4 L oxygen via nasal cannula. Discussed with respiratory therapist to decrease it to 2 L. O2 sat 95% on 2 L Pulmonary note reviewed 06/02 no acute events overnight, no apparent distress, oxygen saturation on room air was 93% with 6-minute walk. Discussed with patient about going home today. He prefers to go home tomorrow as he complains of weakness and is concerned/anxious about his father who is an ICU. Pulmonary note reviewed Plan (1) Bilateral pneumonia Current Visit: Yes Status: Acute Plan to address problem: COVID-19 negative. Repeat COVID-PCR negative, Covid IgG ab. positive ID note reviewed Antibiotics discontinued (2) Suspected COVID-19 virus infection-negative with positive IgG antibody Continue Decadron -stop date 06/03 Proning as able (3) Acute respiratory failure with hypoxia Current Visit: Yes Status: Acute Plan to address problem: Likely 2/2 viral pneumonia Patient has been weaned to 2L O2 Incentive spirometer slow improvement Wean as tolerated pt sat on RA at rest 97% walking in room for 6 mins 93% on RA Discussed with patient going home Patient prefers to go home tomorrow as he feels weak and also is concerned about his father who is in ICU (4) Diabetes mellitus-newly diagnosed Hemoglobin A1c 11.3 Continue Lantus and lispro sliding scale coverage. Continue lantus 26 units BID Diabetic education (5) DVT prophylaxis Current Visit: Yes Status: Acute Plan to address problem: Lovenox (6) Advance care planning Current Visit: Yes Status: Acute Plan to address problem: Full code status Narrative exam: VITAL SIGNS: Reviewed. GENERAL: Awake HEAD: No signs of head trauma. EYES: Pupils are equal. Extraocular motions intact. NECK: No adenopathy, no JVD. CHEST: Clear to auscultation CARDIAC: Regular rate and rhythm ABDOMEN: Soft, non tender and non distended. MUSCULOSKELETAL: No edema NEUROLOGIC EXAM: Alert and oriented x3. No focal neurologic deficits SKIN: No obvious lesions Objective - Constitutional Vitals: Vital Signs - 12hr 06/02/20 06/02/20 06/02/20 04:43 11:25 11:54 Temperature 97.8 F 97.7 F Pulse Rate 62 61 Respiratory 20 19 Rate Blood Pressure 109/66 121/71 O2 Sat by Pulse 97 97 96 Oximetry - Labs CBC & Chem 7: 06/02/20 05:06 06/02/20 05:06 Labs: Abnormal lab results 06/01/20 06/02/20 06/02/20 Range/Units 22:07 05:06 05:06 Hgb 15.6 H (11.8-15.2) gm/dl MCHC 35 H (32-34) % RDW 13.1 L (13.2-15.2) % [place] % (Auto) 9.8 H (0.0-7.3) % [place] # (Auto) 0.9 H (0.0-0.8) K/mm3 Seg Neutrophils % 75.9 H (40.0-70.0) % Creatinine 0.5 L (0.8-1.3) mg/dL Glucose 179 H (75-100) mg/dL POC Glucose 201 H (70-105) mg/dL ALT 96 H (7-56) units/L Albumin 3.2 L (3.9-5) g/dL 06/02/20 06/02/20 Range/Units 07:37 10:49 Hgb (11.8-15.2) gm/dl MCHC (32-34) % RDW (13.2-15.2) % [place] % (Auto) (0.0-7.3) % [place] # (Auto) (0.0-0.8) K/mm3 Seg Neutrophils % (40.0-70.0) % Creatinine (0.8-1.3) mg/dL Glucose (75-100) mg/dL POC Glucose 126 H 166 H (70-105) mg/dL ALT (7-56) units/L Albumin (3.9-5) g/dL HEART Score - HEART Score Troponin: Troponin T < 0.010 ng/mL (0.00-0.029) 05/24/20 17:46
--- NOTE | 2020-06-02 14:24 | Progress Note ---
Assessment and Plan 54 y/o male with acute respiratory failure thought secondary to COVID but initial test negative, ab test positive now with send out pending. 06/02/20: Steroids for a total of 10 days. No objection to discharge from a pulmonary standpoint. Will sign off. 1. Wean FiO2 for sats >88% 2. Prone as much as possible during the day and sleep prone at night, expressed the importance of this again, hopeful he will try. Still is not proning. 3. Steroids for 10 days 4. Hold on lasix therapy today. 5. Send out COVID negative as well. 6. needs to get out of bed and at least sit up in chair. 7. Patient has no funding, so not sure if he can afford oxygen therapy at home. Will need to be as aggressive with weaning as possible. Consider checking ambulatory sats either tomorrow or wednesday. Guarded prognosis. Subjective Date of service: 06/02/20 Principal diagnosis: Pneumonia Interval history: Has been weaned to room air and passed walk test. Does not need oxygen therapy at home. Objective Vital Signs - 12hr 06/02/20 06/02/20 06/02/20 04:43 11:25 11:54 Temperature 97.8 F 97.7 F Pulse Rate 62 61 Respiratory 20 19 Rate Blood Pressure 109/66 121/71 O2 Sat by Pulse 97 97 96 Oximetry Constitutional: no acute distress, alert Eyes: non-icteric Neck: supple Effort: mildly labored Ascultation: Bilateral: clear (anteriorly) Cardiovascular: regular rate and rhythm (no mrg) Gastrointestinal: normoactive bowel sounds, soft, non-tender, non-distended Integumentary: normal Extremities: no cyanosis, no edema, pink and warm Neurologic: normal mental status, non-focal exam, pupils equal and round, CN II- XII normal Psychiatric: mood appropriate, affect normal CBC and BMP: 06/02/20 05:06 06/02/20 05:06 ABG, PT/INR, D-dimer: PT/INR, D-dimer D-Dimer 270.88 ng/mlDDU (0-234) H 05/28/20 04:58 Abnormal lab findings: Abnormal Labs 05/24/20 05/24/20 05/24/20 17:46 17:46 17:46 RBC 6.03 H Hgb 18.9 H Hct 54.1 H MCHC 35 H RDW Lymph % (Auto) 8.6 L [place] % (Auto) 15.9 H Lymph # (Auto) 0.7 L [place] # (Auto) 1.4 H Seg Neutrophils % 74.9 H D-Dimer 569.00 H Sodium 131 L Potassium Chloride 93.2 L Carbon Dioxide Creatinine 0.6 L Glucose 273 H POC Glucose Hemoglobin A1c Lactic Acid Ferritin Total Bilirubin 1.40 H AST 101 H ALT 78 H Lactate Dehydrogenase 505 H C-Reactive Protein 3.50 H Albumin 3.1 L Ur Specific [place] Urine WBC (Auto) SARS-CoV-2 IgG Ab 05/24/20 05/24/20 05/24/20 17:46 17:46 20:40 RBC Hgb Hct MCHC RDW Lymph % (Auto) [place] % (Auto) Lymph # (Auto) [place] # (Auto) Seg Neutrophils % D-Dimer Sodium Potassium Chloride Carbon Dioxide Creatinine Glucose 268 H POC Glucose Hemoglobin A1c Lactic Acid 2.30 H* Ferritin 3592.0 H Total Bilirubin AST ALT Lactate Dehydrogenase 476 H C-Reactive Protein 3.40 H Albumin Ur Specific [place] Urine WBC (Auto) SARS-CoV-2 IgG Ab 05/25/20 05/25/20 05/25/20 02:55 02:55 02:55 RBC Hgb Hct MCHC RDW Lymph % (Auto) [place] % (Auto) Lymph # (Auto) [place] # (Auto) Seg Neutrophils % D-Dimer 418.22 H Sodium Potassium Chloride Carbon Dioxide Creatinine Glucose 290 H POC Glucose Hemoglobin A1c Lactic Acid Ferritin 2913.0 H Total Bilirubin AST ALT Lactate Dehydrogenase 396 H C-Reactive Protein 3.20 H Albumin Ur Specific [place] Urine WBC (Auto) SARS-CoV-2 IgG Ab 05/25/20 05/25/20 05/25/20 05:41 10:32 11:31 RBC 5.28 H Hgb 16.8 H Hct 47.8 H D MCHC 35 H RDW Lymph % (Auto) 10.9 L [place] % (Auto) 13.6 H Lymph # (Auto) 0.5 L [place] # (Auto) Seg Neutrophils % 75.3 H D-Dimer Sodium Potassium Chloride Carbon Dioxide Creatinine Glucose POC Glucose 309 H Hemoglobin A1c Lactic Acid Ferritin Total Bilirubin AST ALT Lactate Dehydrogenase C-Reactive Protein Albumin Ur Specific [place] 1.032 H Urine WBC (Auto) 7.0 H SARS-CoV-2 IgG Ab 05/25/20 05/25/20 05/25/20 11:31 11:31 17:44 RBC Hgb Hct MCHC RDW Lymph % (Auto) [place] % (Auto) Lymph # (Auto) [place] # (Auto) Seg Neutrophils % D-Dimer Sodium 134 L Potassium Chloride 96.2 L Carbon Dioxide Creatinine 0.5 L Glucose 322 H POC Glucose 370 H Hemoglobin A1c 11.3 H Lactic Acid Ferritin Total Bilirubin AST ALT Lactate Dehydrogenase C-Reactive Protein Albumin Ur Specific [place] Urine WBC (Auto) SARS-CoV-2 IgG Ab 05/25/20 05/26/20 05/26/20 22:22 11:27 16:18 RBC Hgb Hct MCHC RDW Lymph % (Auto) [place] % (Auto) Lymph # (Auto) [place] # (Auto) Seg Neutrophils % D-Dimer Sodium Potassium Chloride Carbon Dioxide Creatinine Glucose POC Glucose 308 H 283 H 313 H Hemoglobin A1c Lactic Acid Ferritin Total Bilirubin AST ALT Lactate Dehydrogenase C-Reactive Protein Albumin Ur Specific [place] Urine WBC (Auto) SARS-CoV-2 IgG Ab 05/26/20 05/26/20 05/27/20 18:47 21:39 08:33 RBC 5.31 H Hgb 16.8 H Hct 48.2 H MCHC 35 H RDW Lymph % (Auto) 12.7 L [place] % (Auto) 9.6 H Lymph # (Auto) 1.0 L [place] # (Auto) Seg Neutrophils % 77.3 H D-Dimer Sodium Potassium Chloride Carbon Dioxide Creatinine Glucose POC Glucose 314 H Hemoglobin A1c Lactic Acid Ferritin Total Bilirubin AST ALT Lactate Dehydrogenase C-Reactive Protein Albumin Ur Specific [place] Urine WBC (Auto) SARS-CoV-2 IgG Ab Reactive A 05/27/20 05/27/20 05/27/20 08:33 08:33 12:13 RBC Hgb Hct MCHC RDW Lymph % (Auto) [place] % (Auto) Lymph # (Auto) [place] # (Auto) Seg Neutrophils % D-Dimer Sodium Potassium Chloride Carbon Dioxide 31 H Creatinine 0.5 L Glucose 192 H POC Glucose 197 H 237 H Hemoglobin A1c Lactic Acid Ferritin Total Bilirubin AST 75 H ALT 100 H Lactate Dehydrogenase C-Reactive Protein Albumin 3.1 L Ur Specific [place] Urine WBC (Auto) SARS-CoV-2 IgG Ab 05/27/20 05/27/20 05/28/20 16:15 21:07 04:58 RBC Hgb 15.3 H Hct MCHC 35 H RDW 12.8 L Lymph % (Auto) [place] % (Auto) 10.5 H Lymph # (Auto) 1.0 L [place] # (Auto) Seg Neutrophils % 75.3 H D-Dimer Sodium Potassium Chloride Carbon Dioxide Creatinine Glucose POC Glucose 348 H 307 H Hemoglobin A1c Lactic Acid Ferritin Total Bilirubin AST ALT Lactate Dehydrogenase C-Reactive Protein Albumin Ur Specific [place] Urine WBC (Auto) SARS-CoV-2 IgG Ab 05/28/20 05/28/20 05/28/20 04:58 04:58 04:58 RBC Hgb Hct MCHC RDW Lymph % (Auto) [place] % (Auto) Lymph # (Auto) [place] # (Auto) Seg Neutrophils % D-Dimer 270.88 H Sodium Potassium 3.5 L Chloride Carbon Dioxide Creatinine 0.4 L Glucose 214 H POC Glucose Hemoglobin A1c Lactic Acid Ferritin 1613.0 H Total Bilirubin AST 54 H ALT 102 H Lactate Dehydrogenase 246 H C-Reactive Protein Albumin 2.8 L Ur Specific [place] Urine WBC (Auto) SARS-CoV-2 IgG Ab 05/28/20 05/28/20 05/28/20 07:44 12:33 15:50 RBC Hgb Hct MCHC RDW Lymph % (Auto) [place] % (Auto) Lymph # (Auto) [place] # (Auto) Seg Neutrophils % D-Dimer Sodium Potassium Chloride Carbon Dioxide Creatinine Glucose POC Glucose 200 H 209 H 367 H Hemoglobin A1c Lactic Acid Ferritin Total Bilirubin AST ALT Lactate Dehydrogenase C-Reactive Protein Albumin Ur Specific [place] Urine WBC (Auto) SARS-CoV-2 IgG Ab 05/28/20 05/29/20 05/29/20 22:22 05:24 07:32 RBC Hgb Hct MCHC RDW Lymph % (Auto) [place] % (Auto) Lymph # (Auto) [place] # (Auto) Seg Neutrophils % D-Dimer Sodium 135 L Potassium Chloride Carbon Dioxide Creatinine 0.5 L Glucose 254 H POC Glucose 238 H 213 H Hemoglobin A1c Lactic Acid Ferritin Total Bilirubin AST ALT Lactate Dehydrogenase C-Reactive Protein Albumin Ur Specific [place] Urine WBC (Auto) SARS-CoV-2 IgG Ab 05/29/20 05/29/20 05/29/20 11:36 17:26 22:50 RBC Hgb Hct MCHC RDW Lymph % (Auto) [place] % (Auto) Lymph # (Auto) [place] # (Auto) Seg Neutrophils % D-Dimer Sodium Potassium Chloride Carbon Dioxide Creatinine Glucose POC Glucose 291 H 249 H 254 H Hemoglobin A1c Lactic Acid Ferritin Total Bilirubin AST ALT Lactate Dehydrogenase C-Reactive Protein Albumin Ur Specific [place] Urine WBC (Auto) SARS-CoV-2 IgG Ab 05/30/20 05/30/20 05/30/20 08:07 11:55 15:37 RBC Hgb Hct MCHC RDW Lymph % (Auto) [place] % (Auto) Lymph # (Auto) [place] # (Auto) Seg Neutrophils % D-Dimer Sodium 133 L Potassium 5.1 H D Chloride 95.6 L Carbon Dioxide Creatinine 0.7 L Glucose 295 H POC Glucose 323 H 285 H Hemoglobin A1c Lactic Acid Ferritin Total Bilirubin AST 45 H ALT 126 H Lactate Dehydrogenase C-Reactive Protein Albumin 3.2 L Ur Specific [place] Urine WBC (Auto) SARS-CoV-2 IgG Ab 05/30/20 05/30/20 05/31/20 17:30 21:53 05:00 RBC 5.10 H Hgb 15.9 H Hct MCHC 35 H RDW 12.7 L Lymph % (Auto) 11.7 L [place] % (Auto) 8.8 H Lymph # (Auto) 1.0 L [place] # (Auto) Seg Neutrophils % 79.0 H D-Dimer Sodium Potassium Chloride Carbon Dioxide Creatinine Glucose POC Glucose 279 H 179 H Hemoglobin A1c Lactic Acid Ferritin Total Bilirubin AST ALT Lactate Dehydrogenase C-Reactive Protein Albumin Ur Specific [place] Urine WBC (Auto) SARS-CoV-2 IgG Ab 05/31/20 05/31/20 05/31/20 05:00 07:46 12:16 RBC Hgb Hct MCHC RDW Lymph % (Auto) [place] % (Auto) Lymph # (Auto) [place] # (Auto) Seg Neutrophils % D-Dimer Sodium 136 L Potassium Chloride Carbon Dioxide Creatinine 0.4 L Glucose 180 H POC Glucose 108 H 150 H Hemoglobin A1c Lactic Acid Ferritin Total Bilirubin AST ALT 104 H Lactate Dehydrogenase C-Reactive Protein Albumin 3.1 L Ur Specific [place] Urine WBC (Auto) SARS-CoV-2 IgG Ab 05/31/20 05/31/20 06/01/20 16:48 22:02 05:42 RBC 5.04 H Hgb 15.9 H Hct MCHC 35 H RDW 13.1 L Lymph % (Auto) 12.0 L [place] % (Auto) 9.6 H Lymph # (Auto) 1.1 L [place] # (Auto) 0.9 H Seg Neutrophils % 78.0 H D-Dimer Sodium Potassium Chloride Carbon Dioxide Creatinine Glucose POC Glucose 261 H 244 H Hemoglobin A1c Lactic Acid Ferritin Total Bilirubin AST ALT Lactate Dehydrogenase C-Reactive Protein Albumin Ur Specific [place] Urine WBC (Auto) SARS-CoV-2 IgG Ab 06/01/20 06/01/20 06/01/20 05:42 07:42 22:07 RBC Hgb Hct MCHC RDW Lymph % (Auto) [place] % (Auto) Lymph # (Auto) [place] # (Auto) Seg Neutrophils % D-Dimer Sodium Potassium Chloride Carbon Dioxide 33 H Creatinine 0.5 L Glucose 148 H POC Glucose 142 H 201 H Hemoglobin A1c Lactic Acid Ferritin Total Bilirubin AST ALT 103 H Lactate Dehydrogenase C-Reactive Protein Albumin 3.2 L Ur Specific [place] Urine WBC (Auto) SARS-CoV-2 IgG Ab 06/02/20 06/02/20 06/02/20 05:06 05:06 07:37 RBC Hgb 15.6 H Hct MCHC 35 H RDW 13.1 L Lymph % (Auto) [place] % (Auto) 9.8 H Lymph # (Auto) [place] # (Auto) 0.9 H Seg Neutrophils % 75.9 H D-Dimer Sodium Potassium Chloride Carbon Dioxide Creatinine 0.5 L Glucose 179 H POC Glucose 126 H Hemoglobin A1c Lactic Acid Ferritin Total Bilirubin AST ALT 96 H Lactate Dehydrogenase C-Reactive Protein Albumin 3.2 L Ur Specific [place] Urine WBC (Auto) SARS-CoV-2 IgG Ab 06/02/20 10:49 RBC Hgb Hct MCHC RDW Lymph % (Auto) [place] % (Auto) Lymph # (Auto) [place] # (Auto) Seg Neutrophils % D-Dimer Sodium Potassium Chloride Carbon Dioxide Creatinine Glucose POC Glucose 166 H Hemoglobin A1c Lactic Acid Ferritin Total Bilirubin AST ALT Lactate Dehydrogenase C-Reactive Protein Albumin Ur Specific [place] Urine WBC (Auto) SARS-CoV-2 IgG Ab
[2020-06-02] MEDS: ZOLPIDEM 5 MG TAB PO PRN (21:13)
[2020-06-03] MEDS: INSULIN LISPRO 100 UNIT/ML VIAL 3 mL SUB-Q SCH ×2 (08:42→12:19)
[2020-06-03] MEDS: ZINC SULFATE 220 MG CAP PO SCH (10:07)
[2020-06-03] MEDS: ENOXAPARIN 40 MG/0.4 ML INJ SUB-Q SCH (10:07)
[2020-06-03] MEDS: dexAMETHasone 4 MG/ML VIAL IV SCH (10:08)
[2020-06-03] MEDS: FAMOTIDINE 20 MG TAB PO SCH (10:08)
[2020-06-03] MEDS: ASCORBIC ACID 500 MG TAB PO SCH (10:08)
[2020-06-03] MEDS: INSULIN GLARGINE 100 UNITS/ML SUB-Q SCH (11:05)
--- NOTE | 2020-06-03 11:49 | Discharge Summary ---
Providers - Providers Date of Admission: 05/24/20 21:29 Date of discharge: 06/03/20 Attending physician: PENNY HOU 05/24/20 20:35 Consult to Dietitian/Nutrition [CONS] Routine Physician Instructions: Reason For Exam: Reason for Consult: Evaluate nutritional intake 05/24/20 21:35 Consult to Physician [CONS] Stat Comment: Consulting Provider: DOUGLAS BARNES Physician Instructions: Reason For Exam: covid PUI Primary care physician: [employer] Hospitalization Reason for admission: COVID-19 pneumonia Condition: Good Hospital course: Assessment and plan: 54-year-old male present with a chief complaint of shortness of breath. Patient states he came to the emergency department because of "Covid." The patient states for the past 2 weeks he has had shortness of breath weakness and lethargy. Patient admits to fever 100.4 F and a cough occasionally productive of sputum. Patient states he feels dehydrated. The patient states he's never had a Covid test Ed Work up shows WBC 8.7, hemoglobin 18.9, d-dimer 569, sodium 131, potasium 4.1, Cr .06, serum glucose 268, and ferritin 3592 Chest x-ray-shows bilateral Pneumonia Patient seen at bedside, on oxygen per N/c. He admits alcohol use but quit 2 years ago. Reviewed lab, mar, and v/s 05/24: Add insulin for BG control, consult Pulmonary considering Hypoxia. Continue current management and check hgb A1C. 05/26. Remains on oxygen. Influenza sawb today. ID and pulmonlogy following. 05/27. Influenza negative. Father admitted with similar symptoms tested positive for COVID. Awaiting repeat COVID test. 05/28. Apparently Covid test was not ordered so this has been ordered today. He is oxygen saturation is better-now on 9 L of oxygen. Pulmonology recommendations appreciated. 05/29. Feels better. Now on 8L. Getting lasix IV. 05/30. Repeat COVID-19 testing negative. Patient is now on 5 L of oxygen with sats in the mid 90s. Awaiting chem 7. 05/31/20 patient is alert and oriented and offers no specific complaints except mild cough, denies shortness of breath. Pulmonary and ID notes reviewed Lab results reviewed 06/01 patient is alert and oriented. He is on 4 L oxygen via nasal cannula. Discussed with respiratory therapist to decrease it to 2 L. O2 sat 95% on 2 L Pulmonary note reviewed 06/02 no acute events overnight, no apparent distress, oxygen saturation on room air was 93% with 6-minute walk. Discussed with patient about going home today. He prefers to go home tomorrow as he complains of weakness and is concerned/anxious about his father who is an ICU. Pulmonary note reviewed 06/03 medically stable for discharge, no need for oxygen requirements, Plan (1) Bilateral pneumonia Current Visit: Yes Status: Acute Plan to address problem: COVID-19 negative. Repeat COVID-PCR negative, Covid IgG ab. positive (2) Suspected COVID-19 virus infection-negative with positive IgG antibody Continue Decadron -stop date 06/03 Proning as able (3) Acute respiratory failure with hypoxia Current Visit: Yes Status: Acute Plan to address problem: Likely 2/2 viral pneumonia Patient has been weaned to 2L O2 Incentive spirometer slow improvement Wean as tolerated pt sat on RA at rest 97% walking in room for 6 mins 93% on RA Stable for discharge (4) Diabetes mellitus-newly diagnosed Hemoglobin A1c 11.3 Continue Lantus and lispro sliding scale coverage. Continue lantus 26 units BID Diabetic education Will also add oral hypoglycemic with glimepiride 2 mg Narrative exam: VITAL SIGNS: Reviewed. GENERAL: Awake HEAD: No signs of head trauma. EYES: Pupils are equal. Extraocular motions intact. NECK: No adenopathy, no JVD. CHEST: Clear to auscultation CARDIAC: Regular rate and rhythm ABDOMEN: Soft, non tender and non distended. MUSCULOSKELETAL: No edema NEUROLOGIC EXAM: Alert and oriented x3. No focal neurologic deficits SKIN: No obvious lesions Disposition: DC- TO HOME OR SELFCARE Time spent for discharge: 38 min Core Measure Documentation - Palliative Care Palliative Care/ Comfort Measures: Not Applicable - Core Measures Any of the following diagnoses?: none Exam - Constitutional Vitals: Temp Pulse Resp BP Pulse Ox 97.7 F 65 20 117/76 97 06/03/20 04:01 06/03/20 04:01 06/03/20 04:01 06/03/20 04:01 06/03/20 04:01 Plan Activity: no restrictions, advance as tolerated Weight Bearing Status: Weight Bear as Tolerated Diet: regular, low fat, low cholesterol, diabetic Additional Instructions: Patient needs insulin syringes and glucometer and test strips which are available [id number] Follow up with: PRIMARY CARE,MD [Primary Care Provider] - 3-5 Days Prescriptions: glipiZIDE [Glucotrol] 5 mg PO QDAY #30 tablet Syringe-Needle,Insulin,0.5 ml [Insulin Syringe/Needle 0.5 ML] 1 each MC BID #100 disp.syrin Insulin NPH/Regular [Novolin 70/30] 25 unit SQ BIDDIAB 30 Days #10 ml
[2020-06-03 12:01] VITALS: BP 113/73
== END 2020-06-03 15:00 | disposition home or self-care (01) | DRG 871 ==
LOC: ED 16:54 → 3A 21:29
PROVIDERS: ADMIT Internal Medicine; ATTEND Internal Medicine
DX: A41.89 Other specified sepsis (principal); J96.01 Acute respiratory failure with hypoxia; U07.1 COVID-19; J12.82 Pneumonia due to coronavirus disease 2019; Z20.828 Contact with and (suspected) exposure to other viral communicable diseases; E11.9 Type 2 diabetes mellitus without complications; D75.1 Secondary polycythemia; R74.01 Elevation of levels of liver transaminase levels; Z88.0 Allergy status to penicillin; Z79.899 Other long term (current) drug therapy
CPT/HCPCS: 36415; 71045; 80048; 80053; 81001; 82140; 82728; 82947; 82962; 83036; 83615; 83880; 84145; 84484; 85025; 85379; 86140; 87040; 87400; 90471; 94760; 96365; 96375; 96376; G0378; J0456; J0696; J1100; J1650; J1815; J1940; J2250; J3480; J7030; J7050; U0003